=== PATIENT | male | born 1950 | race Two or more races ===

== ENCOUNTER 2017-04-19 21:12 | Emergency (ER) | payer MEDICARE, OTHER ==
[2017-04-19 21:36] VITALS: BP 152/80
== END 2017-04-19 21:58 | disposition left against medical advice (07) ==
LOC: ED 21:12
DX: I10 Essential (primary) hypertension (principal); Z53.21 Procedure and treatment not carried out due to patient leaving prior to being seen by health care provider

== ENCOUNTER → 2018-10-22 | Day surgery (SDC) | payer MEDICARE ==
[~2018-10-22] MED LIST: Acetaminophen TAB* 325 MG PO PRN; Buffered Lidocaine 1% SYRIN* 1 ML/SYRINGE INTRADERM ONE; Bupivacaine 0.5%* 50 ML MDV VIAL ONE; Famotidine IV* 10 MG/ML 2 ML (20 mg) IV ONE; Famotidine IV* 10 MG/ML 2 ML (20 mg) ONE; HYDROcodone/ACETAMIN 5-325 MG* 1 TAB PO PRN; Lactated Ringers 1000 ML Bag* 1,000 ML IV SCH; Lidocaine 2% PF * 5 ML VIAL ONE; Lidocaine 2% PF* 10 ML AMP ONE; Midazolam* 1 MG/ML 2 ML VIAL (2 MG) ONE; Naloxone* 0.4 MG/ML 1 ML VIAL IV PRN; Ondansetron INJ* 2 MG/ML VIAL IV PRN; Propofol* 10 MG/ML 20 ML BTL ONE; ceFAZolin 2 GM in NS PREMIX(*) 2 GM/100 ML BAG IVPB ONE; fentaNYL* 50 MCG/ML 2 ML VIAL (100 MCG VIAL) IV PRN; fentaNYL* 50 MCG/ML 2 ML VIAL (100 MCG VIAL) ONE; oxyCODONE TAB* 5 MG TAB PO PRN
[2018-10-22 15:04] VITALS: BP 132/61
--- NOTE | 2018-10-22 20:34 | OP ---
DATE OF SURGERY: 10/22/18 - [facility] DATE OF : 50 ATTENDING SURGEON: Ravin Damon MD. ASSISTED BY: Janet Styles PA-C. PRE-OP DIAGNOSIS: Right first metatarsal osteomyelitis. POST-OP DIAGNOSIS: Right first metatarsal osteomyelitis. OPERATIVE PROCEDURE: Right medial first ray amputation. DESCRIPTION OF PROCEDURE: The patient was taken to the operative room, where we made a tennis racket type incision surrounding the distal ulcer and then a straight line along the medial first ray up to the first cuneiform level. We dissected around the first metatarsal, also ellipticizing the ulcer. The first metatarsal was then delivered en block with the distal ulcer to pathology. Irrigation was then performed thoroughly along with the cultures being sent. We dropped the tourniquet and obtained hemostasis. Closure consisted of deep 2- 0 Vicryl sutures, 3-0 Monocryl for the subcu and then 2-0 Prolene for the skin interrupted sutures. A compression dressing was applied. [id number]/[facility] #: [id number] MTDD
== END | disposition home or self-care (01) ==
LOC: OR 11:16
PROVIDERS: ATTEND Orthopaedic Surgery
DX: M86.671 Other chronic osteomyelitis, right ankle and foot (principal); E78.00 Pure hypercholesterolemia, unspecified; M10.9 Gout, unspecified; E03.9 Hypothyroidism, unspecified; E11.9 Type 2 diabetes mellitus without complications; Z79.4 Long term (current) use of insulin; Z79.84 Long term (current) use of oral hypoglycemic drugs; G47.33 Obstructive sleep apnea (adult) (pediatric)
CPT/HCPCS: 87070; 87073; 87077; 87186; 87205; 88304; 88311; J0690; J2001; J2250; J2704; J3010; J3490

== ENCOUNTER 2018-11-21 12:48 | Inpatient (IN) | payer MEDICARE ==
--- OUTSIDE RECORDS SUMMARY | 2018-11-21 14:37 | XMS REPORT | Continuity of Care Document ---
:1950 External Reference #:[id number] Author Name Ravin Damon M.D. (transmitted by agent of provider Justin Meza) Address [address] [facility] [place] [address] Care Team Providers Name Role Phone Jah Palm M.D. 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 Onset: 09/10/2015 Abnormal involuntary movement Aman Rinaldi M.D. Onset: 12/20/2017 Abnormal gait Aman Rinaldi M.D. Onset: 12/20/2017 Abnormal results function studies of central Aman Rinaldi M.D. Onset: nervous system Malignant neoplasm of brain Aman Rinaldi M.D. Onset: 01/01/2018 Social History Type Date Description Comments Sex Unknown Tobacco Use Start: Unknown Never Smoked Cigarettes Smoking Status Reviewed: 11/21/18 Never Smoked Cigarettes ETOH Use Denies alcohol use Tobacco Use Start: Unknown Patient has never smoked Recreational Drug Use Never Used Drugs Exercise Type/Frequency Exercises regularly Allergies, Adverse Reactions, Alerts Description No Known Drug Allergies Medications Active Medications SIG Qnty Indications Ordering Date Provider Primidone take 1 tablet by 180tabs R25.1 Jp Roberts 12/20/2017 50mg Tablets mouth twice a Janay Rosas day.. Aspir-81 1 by mouth every Unknown 81mg Tablets DR day Metformin HCL 1 by mouth twice Unknown 1000mg a day Tablets Levothyroxine Sodium 1 by mouth every Unknown day 125mcg Tablets Fluoxetine HCL 1 by mouth every Unknown 40mg day Capsules Glipizide 1 by mouth daily Unknown 10mg Tablets Rosuvastatin Calcium take one tablet 90tabs Unknown 40mg daily Tablets Humulin 70/30 16 units in in Unknown the morning and (70-30)100Unit/ML 16 units in at Suspension night Allopurinol Take Two Tablets Unknown 100mg Tablets By Mouth Every Day Lisinopril 1 by mouth every Unknown 2.5mg Tablets day Cabergoline take 1 tab by Unknown 0.5mg Tablets mouth twice weekly Cefdinir Take One Capsule Unknown 300mg Capsules By Mouth Twice A Day Metronidazole Take One Tablet Unknown 500mg By Mouth Three Tablets Times A Day History Medications Oxycodone HCL 1 tabs by mouth 12tabs Ravin Damon, 10/22/2018 - 5mg every 6 hours as M.D. 10/30/2018 Tablets needed Immunizations Description No Information Available Vital Signs Date Vital Result Comment 11/21/2018 10:58am Height 65 inches 5'5" Weight 210.00 lb Heart Rate 53 /min BP Systolic Sitting 128 mmHg BP Diastolic Sitting 74 mmHg Respiratory Rate 16 /min Body Temperature 97.3 F Pain Level 0 O2 % BldC Oximetry 92 % BMI (Body Mass Index) 34.9 kg/m2 11/14/2018 10:40am Height 65 inches 5'5" Weight 225.00 lb Heart Rate 108 /min BP Systolic Sitting 106 mmHg BP Diastolic Sitting 50 mmHg Pain Level 0 O2 % BldC Oximetry 98 % BMI (Body Mass Index) 37.4 kg/m2 Results Test Date Facility Test Result H/L Range Note Xray 11/15/2018 [facility] VL Ank/Brachial . [address] [place] [address] [phone] Laboratory test 11/07/2018 [facility] Erythrocyte Sed 54 mm/Hr High 0-[address] [place] [address] [phone] C Reactive Protein 20.67 mg/L High <8.01 Laboratory test 10/22/2018 [facility] Point of Care 143 mg/dL High 70-[address] [place] [address] [phone] Wound 10/22/2018 [facility] Wound/Misc SEE RESULT 2, 3 Culture/Sensi [address] [place] [address] Stain [phone] Laboratory test 10/22/2018 [facility] Anaerobic SEE RESULT [address] [place] [address] [phone] Surgical Pathology SEE RESULT BELOW 5 Laboratory 10/22/2018 [facility] Point of 161 mg/dL High 70- 100 6 test finding [address] [place] [address] Glucose [phone] Inr/Protime 10/16/2018 [facility] Inr 1.03 Normal 0.82-1.09 7 , [address] [place] [address] [phone] Laboratory 10/16/2018 [facility] Partial 33.3 Normal 26.0- 38.0 9 test finding [address] [address] Time PTT [phone] Basic 10/16/2018 [facility] Sodium 139 mmol/L Normal 135-[address] [place] [address] [phone] Potassium 4.5 mmol/L Normal 3.5-5.0 Chloride 105 mmol/L Normal 101-111 Co2 Carbon Dioxide 24 mmol/L Normal 22-32 Anion Gap 10 mmol/L Normal 2-11 Glucose 113 mg/dL High 70-100 Blood Urea Nitrogen 22 mg/dL Normal 6-24 Creatinine 0.70 mg/dL Normal 0.67-1.17 BUN/Creatinine Ratio 31.4 High 8-20 Calcium 9.9 mg/dL Normal 8.6-10.3 Egfr Non- 112.1 >60 Egfr 135.7 >60 10 Laboratory test 10/16/2018 [facility] C Reactive 4.80 Normal < 8.01 [address] Protein mg/[place] [address] [phone] CBC Auto Diff 10/16/2018 [facility] White Blood 7.1 Normal 3.5 -10.[address] Count 10^3/uL [place] [id number] [phone] Red Blood Count 4.35 10^6/uL Normal 4.18-5.48 Hemoglobin 12.7 g/dL Low 14.0-18.0 Hematocrit 38 % Low 42-52 Mean Corpuscular Volume 88 fL Normal 80-94 Mean Corpuscular Hemoglobin 29 pg Normal 27-31 Mean Corpuscular HGB Conc 33 g/dL Normal 31-36 Red Cell Distribution Width 16 % High 10-15 Platelet Count 308 10^3/uL Normal 150-450 Mean Platelet Volume 7.4 fL Normal 7.4-10.4 Abs Neutrophils 4.9 10^3/uL Normal 1.5-7.7 Abs Lymphocytes 1.5 10^3/uL Normal 1.0-4.8 Abs Monocytes 0.6 10^3/uL Normal 0-0.8 Abs Eosinophils 0.0 10^3/uL Normal 0-0.6 Abs Basophils 0.1 10^3/uL Normal 0-0.2 Abs Nucleated RBC 0.0 10^3/uL Granulocyte % 69.8 % Lymphocyte % 21.0 % Monocyte % 8.2 % Eosinophil % 0.1 % Basophil % 0.9 % Nucleated Red Blood Cells % 0.1 Laboratory test 10/16/2018 [facility] Erythrocyte Sed 15 mm/Hr Normal 0-19 [address] [place] [address] [phone] 1 Paper Twister: [id number] RIGHT FOOT 3 SEE RESULT BELOW Name: TARUN MORRISON : [address]: Ravin Damon MD Acct: [id number] Unit: [id number] AGE: 68 Location: OR Re10/22/18 SEX: M Status: REG [facility] SPEC: [id number] GINETTE: 10/22/18-[address]: Ravin Damon MD REQ: [id number] RECD: 10/22/18 STATUS: RES OTHR DR: Jah Palm MD _ SOURCE: WOUND SPDESC: ORDERED: Anaerobic Cult, Culture Stain COMMENTS: RIGHT FOOT Procedure Result Reported Site Anaerobic Culture PENDING Wound/Misc Gram Stain Final 10/22/18- 151 ML 1+ Epithelial Cells 1+ Neutrophils 1+ Gram Positive Cocci Wound/Misc Culture PENDING * ML - Main Lab . END OF REPORT DEPARTMENT OF PATHOLOGY, [address] [place] [address] Moncho Talbot M.D. Director [facility] # [id number] 4 SEE RESULT BELOW Name: TARUN MORRISON : [address]: Ravin Damon MD Acct: [id number] Unit: [id number] AGE: 68 Location: OR Re10/22/18 SEX: M Status: REG SDC SPEC: [id number] GINETTE: 10/22/18 [facility] DR: Ravin Damon MD REQ: [id number] RECD: 10/22/18 STATUS: VALERIA FONSECA DR: Jah Palm MD _ SOURCE: WOUND SPDESC: ORDERED: Anaerobic Cult, Culture Stain COMMENTS: RIGHT FOOT Procedure Result Reported Site Anaerobic Culture Final 10/26/18- 957 ML No Growth Day 4 Wound/Misc Gram Stain Final 10/22/18- 1511 ML 1+ Epithelial Cells 1+ Neutrophils 1+ Gram Positive Cocci Wound/Misc Culture Final 10/26/18- 957 ML Organism 1 ENTEROCOCCUS FAECIUM Quantity 1+ Organism 2 NORMAL GLYNN Quantity 1+ ENTEROCOCCUS FAECIUM:SIGNIFICANCE QUESTIONED; 2 COLONIES ISOLATED 1. ENTEROCOCCUS FAECIUM M.I.C. RX --------- ------ Ampicillin >=32 R Penicillin >=64 R Ciprofloxacin >=8 R Erythromycin >=8 R Gentamicin High Level R Levofloxacin >=8 R Linezolid 2 S * Quinupristin/Dalfopristin 0.5 S * Streptomycin High Level R Tetracycline >=16 R Tigecycline <=0.12 S Vancomycin <=0.5 S * Ampicillin/Sulbactam-Deduced R CONTINUED ON NEXT PAGE DEPARTMENT OF PATHOLOGY, [facility] [email or web address] [place] [address] Moncho Talbot M.D. Director [facility] # [id number] Specimen: [id number] Collected: 10/22/18 Received: 10/22/18 (Continued) Procedure Result Reported Site Wound/Misc Culture Final (continued) * These antibiotics are not available in the [facility] Formulary Contact the Microbiology Department for any additional antibiotic reporting. * - Main Lab . END OF REPORT DEPARTMENT OF PATHOLOGY, [facility] [email or web address] [place], [place] [address] Moncho Talbot M.D. Director [facility] # [id number] 5 SEE RESULT BELOW Name: TARUN MORRISON : [address]: Ravin Damon MD Acct: [id number] Unit: [id number] AGE: 68 Location: OR Re10/22/18 SEX: M Status: REG SDC SPEC: [id number] GINETTE: 10/22/[address]: Ravin Damon MD REQ: [id number] RECD: 10/22/18 STATUS: SOUT _ ORDERED: [place], LEVEL 3 FINAL DIAGNOSIS Right foot, first ray, excision: -- Ulcer and ulcer bed. -- Severe chronic osteomyelitis. PRE-OPERATIVE DIAGNOSIS Right foot osteomyelitis GROSS DESCRIPTION The specimen is received in formalin labeled, Right Foot First Ray, and consists of a 6.1 by up to 3.6 x 2.5 cm disarticulated bone fragment with moderate adherent mccabe- white to yellow soft tissue. The specimen is partially surfaced by a 4.9 x 2.0 cm mckay- white volar skin ellipse with a central 2.3 by up to 1.9 cm glistening dusky mccabe-mckay lesion. Received separately in the same container are two mccabe-white irregular to elliptical volar skin and soft tissue fragments aggregating 7.0 x 4.0 x 1.7 cm. Deputy [employer] Marshal sections are submitted in cassettes A and B as follows: A-skin and soft tissue and B-bone following decalcification. Signed by and Reported on: Moncho Talbot MD 1645 END OF REPORT DEPARTMENT OF PATHOLOGY, [address] [place] [address] Moncho Talbot M.D. Director CLIA # [id number] 6 Paper Twister: [id number] 7 10/22 8 Standard intensity warfarin therapeutic range: 2.0-3.0 High intensity warfarin therapeutic range: 2.5-3.5 9 10/22 10 Because ethnic data is not always readily available, this report includes an eGFR for both -Americans and non- Americans. The National Kidney Disease Education Program (NKDEP) does not endorse the use of the MDRD equation for patients that are not between the ages of 18 and 70, are , have extremes of body size, muscle mass, or nutritional status, or are non- or non-. According to the National Kidney Foundation, irrespective of diagnosis, the stage of the disease is based on the level of kidney function: Stage Description GFR(mL/min/1.73 m(2)) 1 Kidney damage with normal or decreased GFR 90 2 Kidney damage with mild decrease in GFR 60-89 3 Moderate decrease in GFR 30-59 4 Severe decrease in GFR 15-29 5 Kidney failure <15 (or dialysis) 11 10/22 12 10/22 Procedures Date Code Description Status 10/22/2018 53577 Amputation Toe MP JT Completed 10/22/2018 04379 Amputation Toe MP JT Completed Medical Devices Description No Information Available Encounters Type Date Location Provider Dx Diagnosis Office Visit 09/25/2018 [facility] Yusra Jin.671 [facility] and foot Assessments Date Code Description Provider 11/21/2018 M86.671 Other chronic osteomyelitis, right ankle and Ravin Damon M.D. foot 11/21/2018 Z47.89 Encounter for other orthopedic aftercare Ravin Damon M.D. 11/21/2018 T81.30xD Disruption of wound, unspecified, subsequent Ravin Damon M.D. encounter 11/14/2018 M86.671 Other chronic osteomyelitis, right ankle and Ravin Damon M.D. foot 11/14/2018 Z47.89 Encounter for other orthopedic aftercare Ravin Damon M.D. 11/07/2018 M86.671 Other chronic osteomyelitis, right ankle and Ravin Damon M.D. foot 10/31/2018 Z47.89 Encounter for other orthopedic aftercare Ravin Damon M.D. 10/31/2018 M86.671 Other chronic osteomyelitis, right ankle and Ravin Damon M.D. foot 10/22/2018 M86.671 Other chronic osteomyelitis, right ankle and [place] foot 10/22/2018 M86.671 Other chronic osteomyelitis, right ankle and Ravin Damon M.D. foot 10/10/2018 M86.671 Other chronic osteomyelitis, right ankle and Ravin Damon M.D. foot 09/25/2018 M86.671 Other chronic osteomyelitis, right ankle and Ravin Damon M.D. foot Plan of Treatment Future Appointment(s):01/23/2019 4:00 pm - Aman Rinaldi M.D[facility] at [facility]11/21/2018 - Ravin Damon M.D.M86.671 Other chronic osteomyelitis, right ankle and footFollow up:Follow up: 10-14 days wbaxbyW10.89 Encounter for other orthopedic nyrrtrcipO30.30xD Disruption of wound, unspecified, subsequent encounter Functional Status Description No Information Available Mental Status Description No Information Available Referrals Refer to Dr Reason for Referral Status Appt Date Clayton Genao MD Evaluate need for revascularization Closed [address] [place] [address] [phone]
--- OUTSIDE RECORDS SUMMARY | 2018-11-21 14:37 | XMS REPORT | Continuity of Care Document ---
:1950 Author Organization [facility] Allergies and Intolerances No Allergy Data in the System Medications No Known Medications Medications At Time Of Discharge No data in the system Problems No Data in the system Procedures No data in the system Results Laboratory Results Order: C REACTIVE PROTEIN Specimen Source : Body Site: Legend: (G,H) = High, (GG,HH,CH,#H) = Above High Threshold, (#,L) = Low, (##,CL,#L,LL) = Below Low Threshold, (C,CC,CA,#A,A) = Abnormal LOINC Test Result Flag Range Units Date 1987-06 1CRP SerPl-mCnc 5.9 H <=5.0 mg/L 09/26/2018 08:30 Performing Lab Footnotes:[facility] - [id number] - [address] [place] [address] ANDREAS Guerra JAUN Order: CBC DIFF Specimen Source: Body Site: Legend: (G,H) = High, (GG, HH,CH,#H) = Above High Threshold, (#,L) = Low, (##,CL,#L,LL) = Below Low Threshold, (C,CC,CA,#A,A) = Abnormal LOINC Test Result Flag Range Units Date 6690-2 1WBC # Bld Auto 6.2 4.8-10.8 K/uL 09/26/2018 08:30 23441-4 1RBC # Bld 3.99 L 4.60-6.20 M/uL 09/26/2018 08:30 718-7 1Hgb Bld-mCnc 11.8 L 13.5-18.0 gm/dL 09/26/2018 08:30 4544-3 1Hct VFr Bld Auto 36.3 L 41.0-53.0 % 09/26/2018 08:30 787-2 1MCV RBC Auto 90.8 80.0-100.0 fL 09/26/2018 08:30 99998-8 1MCHC RBC-mCnc 32.5 30.0-36.5 % 09/26/2018 08:30 46916-5 1MCH RBC Qn 29.5 27.0-34.0 pg 09/26/2018 08:30 16215-6 1RDW RBC 14.7 11.0-15.0 % 09/26/2018 08:30 777-3 1Platelet # Bld Auto 280 130-450 K/uL 09/26/2018 08:30 80607-4 1PMV Bld Auto 6.8 6.0-12.0 fL 09/26/2018 08:30 751-8 1Neutrophils # Bld Auto 67 37-80 % 09/26/2018 08:30 83999-4 1Lymphocytes NFr Bld 22 10-50 % 09/26/2018 08:30 5905-5 1Monocytes NFr Bld Auto 10 0-12 % 09/26/2018 08:30 19488-8 1Eosinophil # Bld 1 <=8 % 09/26/2018 08:30 704-7 1Basophils # Bld Auto 0 <=3 % 09/26/2018 08:30 84131-4 1Neutrophils # Bld 4.2 1.8-8.6 K/uL 09/26/2018 08:30 731-0 1Lymphocytes # Bld Auto 1.3 0.5-5.0 K/uL 09/26/2018 08:30 742-7 1Monocytes # Bld Auto 0.6 0.0-1.3 K/uL 09/26/2018 08:30 60312-7 1Eosinophil # Bld 0.1 0.0-0.9 K/uL 09/26/2018 08:30 704-7 1Basophils # Bld Auto 0.0 0.0-0.3 K/ul 09/26/2018 08:30 Performing Lab Footnotes:[facility] - [id number] - [address] [place] [address] ANDREAS OLVERAD1 Order: COMPREHENSIVE PANEL Specimen Source: Body Site: Legend: (G,H) = High, (GG,HH,CH,#H) = Above High Threshold, (#,L) = Low, (##,CL,#L,LL) = Below Low Threshold, (C,CC,CA,#A,A) = Abnormal LOINC Test Result Flag Range Units Date 2951-2 1Sodium SerPl-sCnc 139 136-145 mmol/L 09/26/2018 08:30 2823-3 1Potassium SerPl-sCnc 4.5 3.5-5.2 mmol/L 09/26/2018 08:30 2075-0 1Chloride SerPl-sCnc 107 100-108 mmol/L 09/26/2018 08:30 2028-9 1CO2 SerPl-sCnc 25 21-32 mmol/L 09/26/2018 08:30 2345-7 1Glucose SerPl-mCnc 102 H 70-100 mg/dL 09/26/2018 08:30 3094-0 1BUN SerPl-mCnc 15 7-21 mg/dL 09/26/2018 08:30 2160-0 1Creat SerPl-mCnc 0.7 0.6-1.3 mg/dL 09/26/2018 08:30 Interpretive Rosemary: 1Normal Kidney Function or Mild Disease - GFR >OR= 60 Chronic Kidney Disease - GFR 15-59 Renal Failure - GFR < 15 GFR not calculated on patients under 18 years of age. Calculated (estimated) GFR is based on the MDRD Study equation, which assumes a steady state for creatinine. Estimated GFR may not be appropriate for medication dosing. 76435-3 1Ca-I SerPl-mCnc 8.6 8.5-10.8 mg/dL 09/26/2018 08:30 62276-6 1GFR/BSA.pred SerPl-ArVRat >60 09/26/2018 08:30 87979-7 1Bilirub Bld-mCnc 0.5 0.0-1.2 mg/dL 09/26/2018 08:30 2885-2 1Prot SerPl-mCnc 5.8 L 6.4-8.2 gm/dL 09/26/2018 08:30 1751-7 1Albumin SerPl-mCnc 3.9 3.2-4.6 gm/dL 09/26/2018 08:30 6768-6 1ALP SerPl-cCnc 47 40-150 U/L 09/26/2018 08:30 1742-6 1ALT SerPl-cCnc 28 0-55 U/L 09/26/2018 08:30 1920-8 1AST SerPl-cCnc 28 5-37 U/L 09/26/2018 08:30 Performing Lab Footnotes:[facility] - [id number] - [address] [place] [address] ANDREAS Guerra RICCIOMD1 Social History Code Code System Social History Description Dates Observed Observation 205659110 SNOMED CT Current Smoking Unknown if ever Status smoked UNK AdministrativeGender Sex Assigned At Unknown Vital Signs No data in the system Goals Section No data in the system Health Concerns No data in the systemEncounter Diagnosis Date Code Code System Diagnosis Status M86.171 ICD10 OTH ACUTE OSTEOMYEL RT ANKLE FOOT Active Advance Directives No Data in the System Encounters Encounter Diagnosis Location Date OTH ACUTE OSTEOMYEL RT ANKLE FOOT [facility] 09/26/2018 Family History Family history not obtained Functional Status No data in the system Immunizations No data in the system Medical Equipment No data in the system Mental Status No data in the system Assessment and Plan Assessments No data in the systemPlan Of Treatment No data in the systemPending Tests No data in the system Hospital Discharge Instructions No data in the system Reason for Visit No data in the system
--- OUTSIDE RECORDS SUMMARY | 2018-11-21 14:37 | XMS REPORT | Continuity of Care Document ---
:1950 Author Organization [facility] Allergies and Intolerances No Allergy Data [...] Flag Range Units Date 1987-06 1CRP SerPl-mCnc 4.0 <=5.0 mg/L 10/08/2018 10:15 Performing Lab Footnotes:[facility] - [id number] - [address] [place] [address] ANDREAS Guerra JAUN Order: CBC Specimen Source: Body Site: Legend: (G,H) = High, (GG,HH,CH, #H) = Above High Threshold, (#,L) = Low, (##,CL,#L,LL) = Below Low Threshold, (C ,CC,CA,#A,A) = Abnormal LOINC Test Result Flag Range Units Date 6690- 1WBC # Bld Auto 6.0 4.8-10.8 K/uL 10/08/2018 10:15 56151-3 1RBC # Bld 4.21 L 4.60-6.20 M/uL 10/08/2018 10:15 718-7 1Hgb Bld-mCnc 11.9 L 13.5-18.0 gm/dL 10/08/2018 10:15 4544-3 1Hct VFr Bld Auto 38.1 L 41.0-53.0 % 10/08/2018 10:15 787-2 1MCV RBC Auto 90.6 80.0-100.0 fL 10/08/2018 10:15 71963-4 1MCHC RBC-mCnc 31.3 30.0-36.5 % 10/08/2018 10:15 57176-8 1MCH RBC Qn 28.4 27.0-34.0 pg 10/08/2018 10:15 40763-6 1RDW RBC 14.5 11.0-15.0 % 10/08/2018 10:15 777-3 1Platelet # Bld Auto 281 130-450 K/uL 10/08/2018 10:15 33142-2 1PMV Bld Auto 6.9 6.0-12.0 fL 10/08/2018 10:15 Performing Lab Footnotes:[facility] - [id number] - [address] [place] [address] ANDREAS Guerra JAUN Order: COMPREHENSIVE PANEL Specimen Source: Body Site: Legend: (G,H) = High, (GG,HH,CH,#H) = Above High Threshold, (#,L) = Low, (##,CL,#L,LL) = Below Low Threshold, (C,CC,CA,#A,A) = Abnormal LOINC Test Result Flag Range Units Date 2951-2 1Sodium SerPl-sCnc 140 136-145 mmol/L 10/08/2018 10:15 2823-3 1Potassium SerPl-sCnc 4.8 3.5-5.2 mmol/L 10/08/2018 10:15 5-0 1Chloride SerPl-sCnc 105 100-108 mmol/L 10/08/2018 10:15 2028-9 1CO2 SerPl-sCnc 26 21-32 mmol/L 10/08/2018 10:15 2345-7 1Glucose SerPl-mCnc 182 H 70-100 mg/dL 10/08/2018 10:15 3094-0 1BUN SerPl-mCnc 14 7-21 mg/dL 10/08/2018 10:15 2160-0 1Creat SerPl-mCnc 0.7 0.6-1.3 mg/dL 10/08/2018 10:15 Interpretive Rosemary: 1Normal Kidney Function or Mild Disease - GFR >OR= 60 Chronic Kidney Disease - GFR 15-59 Renal Failure - GFR < 15 GFR not calculated on patients under 18 years of age. Calculated (estimated) GFR is based on the MDRD Study equation, which assumes a steady state for creatinine. Estimated GFR may not be appropriate for medication dosing. 03216-3 1Ca-I SerPl-mCnc 9.1 8.5-10.8 mg/dL 10/08/2018 10:15 26770-8 1GFR/BSA.pred SerPl-ArVRat >60 10/08/2018 10:15 35703-0 1Bilirub Bld-mCnc 0.4 0.0-1.2 mg/dL 10/08/2018 10:15 2885-2 1Prot SerPl-mCnc 6.3 L 6.4-8.2 gm/dL 10/08/2018 10:15 1751-7 1Albumin SerPl-mCnc 4.2 3.2-4.6 gm/dL 10/08/2018 10:15 6768-6 1ALP SerPl-cCnc 51 40-150 U/L 10/08/2018 10:15 1742-6 1ALT SerPl-cCnc 32 0-55 U/L 10/08/2018 10:15 1920-8 1AST SerPl-cCnc 33 5-37 U/L 10/08/2018 10:15 Performing Lab Footnotes:[facility] - [id number] - [address] [place] [address] ANDERAS ZAMORANO Social History Code Code System Social History Description Dates Observed Observation 210448596 SNOMED CT Current Smoking Unknown if ever Status smoked UNK AdministrativeGender Sex Assigned At Unknown Vital Signs No data in the system Goals Section No data in the system Health Concerns No data in the systemEncounter Diagnosis Date Code Code System Diagnosis Status Z47.81 ICD10 ENC ORTHOPED AFTERCARE FLW SURG AMP Active Advance Directives No Data in the System Encounters Encounter Diagnosis Location Date ENC ORTHOPED AFTERCARE FLW SURG AMP [facility] 10/08/2018 Family History Family history not obtained Functional [...]
--- OUTSIDE RECORDS SUMMARY | 2018-11-21 14:37 | XMS REPORT | Continuity of Care Document ---
:1950 External Reference #:[id number] Author Name Ravin Damon M.D. (transmitted by agent of provider Justin Meza) Address [address] [facility] [place] [address] Care Team Providers Name Role Phone Jah Palm M.D. - Family Care Team Information Epic Specialist [phone] Medicine Problems Active Problems Provider Date Essential [...] Unknown Never Smoked Cigarettes Smoking Status Reviewed: 11/07/18 Never Smoked Cigarettes ETOH Use Denies alcohol [...] Available Vital Signs Date Vital Result Comment 11/07/2018 10:53am Height 65 inches 5'5" Weight 225.00 lb Heart Rate 101 /min BP Systolic Sitting 100 mmHg BP Diastolic Sitting 58 mmHg Pain Level 0 O2 % BldC Oximetry 98 % BMI (Body Mass Index) 37.4 kg/m2 10/31/2018 2:08pm Height 65 inches 5'5" Heart Rate 91 /min BP Systolic Sitting 102 mmHg BP Diastolic Sitting 60 mmHg Respiratory Rate 12 /min no resp difficulties Body Temperature 99.5 F Pain Level 0 O2 % BldC Oximetry 98 % Results Test Date Facility Test Result H/L Range Note Laboratory test 10/22/2018 [facility] Point of Care 143 mg/dL High 70-[address] Glucose [place], [place] [id number] [phone] Wound 10/22/2018 [facility] Wound/Misc SEE RESULT 2, 3 Culture/Sensi [address] [place] [address] Stain [phone] Laboratory test 10/22/2018 [facility] Anaerobic SEE RESULT [address] Culture BELOW [place], [place] [address] [phone] Surgical Pathology SEE RESULT BELOW 5 Laboratory 10/22/2018 [facility] Point of 161 mg/dL High 70- 100 6 test finding [address] [place] [address] Glucose [phone] Inr/Protime 10/16/2018 [facility] Inr 1.03 Normal 0.82-1.09 7 , [address] [place] [address] [phone] Laboratory 10/16/2018 [facility] Partial 33.3 Normal 26.0- 38.0 9 test finding [address] [place] [place] [address] Time PTT [phone] Basic 10/16/2018 [facility] Sodium 139 mmol/L Normal 135-[address] [place] [address] [phone] Potassium 4.5 mmol/L Normal 3.5-5.0 Chloride 105 mmol/L Normal 101-111 Co2 Carbon Dioxide 24 mmol/L Normal 22-32 Anion Gap 10 mmol/L Normal 2-11 Glucose 113 mg/dL High 70-100 Blood Urea Nitrogen 22 mg/dL Normal 6-24 Creatinine 0.70 mg/dL Normal 0.67-1.17 BUN/Creatinine Ratio 31.4 High 8-20 Calcium 9.9 mg/dL Normal 8.6-10.3 Egfr Non- 112.1 >60 Egfr 135.7 >60 10 Laboratory test 10/16/2018 [facility] C Reactive 4.80 Normal < 8.[address] Protein mg/L [place], [place] [address] [phone] CBC Auto Diff 10/16/2018 [facility] White Blood 7.1 Normal 3.5 -10.[address] Count 10^3/[place] [address] [phone] Red Blood Count 4.35 10^6/uL Normal 4.18-5.48 [...] Blood Cells % 0.1 Laboratory test 10/16/2018 [facility] Erythrocyte Sed 15 mm/Hr Normal 0-19 [address] [place] [address] [phone] 1 Take Off Man: [id number] 2 RIGHT FOOT 3 SEE RESULT BELOW Name: PRINCETARUN David : [address]: Ravin Damon MD Acct: [id number] Unit: [id number] AGE: 68 Location: OR Re10/22/18 SEX: M Status: REG SDC SPEC: [id number] GINETTE: 10/22/[address]: Ravin Damon MD REQ: [id number] RECD: 10/22/183973 STATUS: RES OT DR: Jah Palm MD _ SOURCE: WOUND SPDESC: ORDERED: Anaerobic Cult, Culture Stain COMMENTS: RIGHT FOOT Procedure Result Reported Site Anaerobic Culture PENDING Wound/Misc Gram Stain Final 10/22/18- 1511 ML 1+ Epithelial Cells 1+ Neutrophils 1+ Gram Positive Cocci Wound/Misc Culture PENDING * ML - Main Lab . END OF REPORT DEPARTMENT OF PATHOLOGY, [address] [place] [address] Moncho Talbot M.D. Director [facility] # [id number] 4 SEE RESULT BELOW Name: TARUN MORRISON : [address]: Ravin Damon MD Acct: [id number] Unit: [id number] AGE: 68 Location: OR Re10/22/18 SEX: M Status: REG SDC SPEC: [id number] GINETTE: 10/22/18-[address]: Ravin Damon MD REQ: [id number] RECD: 10/22/18 STATUS: COMP [facility] DR: Jah Palm MD _ SOURCE: WOUND SPDESC: ORDERED: Anaerobic Cult, Culture Stain COMMENTS: RIGHT FOOT Procedure Result Reported Site Anaerobic Culture Final 10/26/18957 ML No Growth Day 4 Wound/Misc Gram Stain Final 10/22/18- 151 ML [...] CONTINUED ON NEXT PAGE DEPARTMENT OF PATHOLOGY, [address] [place] [address] Moncho Talbot M.D. Director [facility] # [id number] Specimen: [id number] Collected: 10/22/18 Received: 10/22/18-1424 (Continued) Procedure Result Reported Site Wound/Misc Culture Final (continued) * These antibiotics are not available in the [facility] Formulary Contact the Microbiology Department for any additional antibiotic reporting. * ML - Main Lab . END OF REPORT DEPARTMENT OF PATHOLOGY, [address] [place] [address] Moncho Talbot M.D. Director [facility] # [id number] 5 SEE RESULT BELOW Name: TARUN MORRISON : [address]: Ravin Daomn MD Acct: [id number] Unit: [id number] AGE: 68 Location: OR Re10/22/18 SEX: M Status: REG SDC SPEC: [id number] GINETTE: 10/22/18-[address] [facility] [address]: Ravin Damon MD REQ: [id number] RECD: 10/22/18822 STATUS: SOUT _ ORDERED: Decal, LEVEL 3 FINAL DIAGNOSIS Right foot, first [...] aggregating 7.0 x 4.0 x 1.7 cm. Diamond Assorter sections are submitted in cassettes A and B as follows: A-skin and soft tissue and B-bone following decalcification. Signed by and Reported on: Moncho Talbot MD 1285 END OF REPORT DEPARTMENT OF PATHOLOGY, [address] [place] [address] Moncho Talbot M.D. 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 foot Plan of Treatment Future Appointment(s):11/14/2018 10:30 am - Ravin Damon M.D. at [facility] AT Dxtrdeos72/11/2019 4:00 pm - Aman Rinaldi M.D. at [place] [facility] Functional Status Description No Information Available Mental Status Description No Information Available Referrals Description No Information Available
--- OUTSIDE RECORDS SUMMARY | 2018-11-21 14:37 | XMS REPORT | Continuity of Care Document ---
:1950 Author Organization [facility] Care Team Providers Name Role Phone UNKNOWN, UNKNOWN Primary Care Physician Unavailable Allergies and Intolerances No Allergy Data in [...] Flag Range Units Date 1987-06 1CRP SerPl-mCnc 4.7 <=5.0 mg/L 09/19/2018 13:00 Performing Lab Footnotes: Laboratory - [id number] - [address] [place] [address] ANDREAS ZAMORANO Order: CBC DIFF Specimen Source: Body Site: Legend: (G,H) = High, (GG, HH,CH,#H) = Above High Threshold, (#,L) = Low, (##,CL,#L,LL) = Below Low Threshold, (C,CC,CA,#A,A) = Abnormal LOINC Test Result Flag Range Units Date 6690-2 1WBC # Bld Auto 9.1 4.8-10.8 K/uL 09/19/2018 13:00 68500-0 1RBC # Bld 4.16 L 4.60-6.20 M/uL 09/19/2018 13:00 718-7 1Hgb Bld-mCnc 12.1 L 13.5-18.0 gm/dL 09/19/2018 13:00 4544-3 1Hct VFr Bld Auto 37.6 L 41.0-53.0 % 09/19/2018 13:00 787-2 1MCV RBC Auto 90.4 80.0-100.0 fL 09/19/2018 13:00 77642-2 1MCHC RBC-mCnc 32.2 30.0-36.5 % 09/19/2018 13:00 80488-8 1MCH RBC Qn 29.1 27.0-34.0 pg 09/19/2018 13:00 82398-1 1RDW RBC 14.5 11.0-15.0 % 09/19/2018 13:00 777-3 1Platelet # Bld Auto 394 130-450 K/uL 09/19/2018 13:00 08701-0 1PMV Bld Auto 7.1 6.0-12.0 fL 09/19/2018 13:00 751-8 1Neutrophils # Bld Auto 69 37-80 % 09/19/2018 13:00 71654-0 1Lymphocytes NFr Bld 21 10-50 % 09/19/2018 13:00 5905-5 1Monocytes NFr Bld Auto 8 0-12 % 09/19/2018 13:00 51488-9 1Eosinophil # Bld 1 <=8 % 09/19/2018 13:00 704-7 1Basophils # Bld Auto 1 <=3 % 09/19/2018 13:00 07040-1 1Neutrophils # Bld 6.3 1.8-8.6 K/uL 09/19/2018 13:00 731-0 1Lymphocytes # Bld Auto 1.9 0.5-5.0 K/uL 09/19/2018 13:00 742-7 1Monocytes # Bld Auto 0.8 0.0-1.3 K/uL 09/19/2018 13:00 96095-6 1Eosinophil # Bld 0.1 0.0-0.9 K/uL 09/19/2018 13:00 704-7 1Basophils # Bld Auto 0.1 0.0-0.3 K/ul 09/19/2018 13:00 Performing Lab Footnotes: Laboratory - [id number] - [address] [place] [address] ANDREAS OLVERAD1 Order: COMPREHENSIVE PANEL Specimen Source: Body Site: Legend: (G,H) = High, (GG,HH,CH,#H) = Above High Threshold, (#,L) = Low, (##,CL,#L,LL) = Below Low Threshold, (C,CC,CA,#A,A) = Abnormal LOINC Test Result Flag Range Units Date 2951-2 1Sodium SerPl-sCnc 141 136-145 mmol/L 09/19/2018 13:00 2823-3 1Potassium SerPl-sCnc 4.5 3.5-5.2 mmol/L 09/19/2018 13:00 2075-0 1Chloride SerPl-sCnc 109 H 100-108 mmol/L 09/19/2018 13:00 2028-9 1CO2 SerPl-sCnc 24 21-32 mmol/L 09/19/2018 13:00 2345-7 1Glucose SerPl-mCnc 46 L 70-100 mg/dL 09/19/2018 13:00 3094-0 1BUN SerPl-mCnc 14 7-21 mg/dL 09/19/2018 13:00 2160-0 1Creat SerPl-mCnc 0.8 0.6-1.3 mg/dL 09/19/2018 13:00 Interpretive Rosemary: 1Normal Kidney Function or Mild Disease - GFR >OR= 60 Chronic Kidney Disease - GFR 15-59 Renal Failure - GFR < 15 GFR not calculated on patients under 18 years of age. Calculated (estimated) GFR is based on the MDRD Study equation, which assumes a steady state for creatinine. Estimated GFR may not be appropriate for medication dosing. 41513-2 1Ca-I SerPl-mCnc 9.5 8.5-10.8 mg/dL 09/19/2018 13:00 91301-3 1GFR/BSA.pred SerPl-ArVRat >60 09/19/2018 13:00 57181-7 1Bilirub Bld-mCnc 0.4 0.0-1.2 mg/dL 09/19/2018 13:00 2885-2 1Prot SerPl-mCnc 6.4 6.4-8.2 gm/dL 09/19/2018 13:00 1751-7 1Albumin SerPl-mCnc 4.1 3.2-4.6 gm/dL 09/19/2018 13:00 6768-6 1ALP SerPl-cCnc 53 40-150 U/L 09/19/2018 13:00 1742-6 1ALT SerPl-cCnc 28 0-55 U/L 09/19/2018 13:00 1920-8 1AST SerPl-cCnc 30 5-37 U/L 09/19/2018 13:00 Performing Lab Footnotes: Laboratory - [id number] - [address] [place] [address] ANDREAS Guerra SANNAOMPanchito Social History Code Code System Social History Description Dates Observed Observation 974883419 SNOMED CT Current Smoking Unknown if ever [...] Date OTH ACUTE OSTEOMYEL RT ANKLE FOOT [facility] 09/19/2018 Family History Family history not obtained Functional [...]
--- OUTSIDE RECORDS SUMMARY | 2018-11-21 14:37 | XMS REPORT | Continuity of Care Document ---
:1950 Author Organization [facility] Allergies and Intolerances No Allergy Data in the System Medications No Known Medications Medications At Time Of Discharge No data in the system Problems No Data in the system Procedures No data in the system Results Laboratory Results Order: CBC DIFF Specimen Source: Body Site : Legend: (G,H) = High, (GG,HH,CH,#H) = Above High Threshold, (#,L) = Low, (##, CL,#L,LL) = Below Low Threshold, (C,CC,CA,#A,A) = Abnormal LOINC Test Result Flag Range Units Date 6690-2 1WBC # Bld Auto 8.4 4.8-10.8 K/uL 10/15/2018 14:30 07077-4 1RBC # Bld 4.30 L 4.60-6.20 M/uL 10/15/2018 14:30 718-7 1Hgb Bld-mCnc 12.7 L 13.5-18.0 gm/dL 10/15/2018 14:30 4544-3 1Hct VFr Bld Auto 39.0 L 41.0-53.0 % 10/15/2018 14:30 787-2 1MCV RBC Auto 90.7 80.0-100.0 fL 10/15/2018 14:30 00228-3 1MCHC RBC-mCnc 32.4 30.0-36.5 % 10/15/2018 14:30 53387-2 1MCH RBC Qn 29.4 27.0-34.0 pg 10/15/2018 14:30 92214-2 1RDW RBC 14.4 11.0-15.0 % 10/15/2018 14:30 777-3 1Platelet # Bld Auto 353 130-450 K/uL 10/15/2018 14:30 84917-0 1PMV Bld Auto 7.0 6.0-12.0 fL 10/15/2018 14:30 751-8 1Neutrophils # Bld Auto 68 37-80 % 10/15/2018 14:30 88676-0 1Lymphocytes NFr Bld 23 10-50 % 10/15/2018 14:30 5905-5 1Monocytes NFr Bld Auto 8 0-12 % 10/15/2018 14:30 05001-0 1Eosinophil # Bld 1 <=8 % 10/15/2018 14:30 704-7 1Basophils # Bld Auto 1 <=3 % 10/15/2018 14:30 20195-3 1Neutrophils # Bld 5.7 1.8-8.6 K/uL 10/15/2018 14:30 731-0 1Lymphocytes # Bld Auto 1.9 0.5-5.0 K/uL 10/15/2018 14:30 742-7 1Monocytes # Bld Auto 0.6 0.0-1.3 K/uL 10/15/2018 14:30 51694-6 1Eosinophil # Bld 0.1 0.0-0.9 K/uL 10/15/2018 14:30 704-7 1Basophils # Bld Auto 0.1 0.0-0.3 K/ul 10/15/2018 14:30 Performing Lab Footnotes:[facility] - [id number] - [address] [place] [address] ANDREAS Guerra [id number] Order: COMPREHENSIVE PANEL Specimen Source: Body Site: Legend: (G,H) = High, (GG,HH,CH,#H) = Above High Threshold, (#,L) = Low, (##,CL,#L,LL) = Below Low Threshold, (C,CC,CA,#A,A) = Abnormal LOINC Test Result Flag Range Units Date 295-2 1Sodium SerPl-sCnc 142 136-145 mmol/L 10/15/2018 14:30 2823-3 1Potassium SerPl-sCnc 4.3 3.5-5.2 mmol/L 10/15/2018 14:30 5-0 1Chloride SerPl-sCnc 105 100-108 mmol/L 10/15/2018 14:30 8-9 1CO2 SerPl-sCnc 24 21-32 mmol/L 10/15/2018 14:30 2345-7 1Glucose SerPl-mCnc 65 L 70-100 mg/dL 10/15/2018 14:30 3094-0 1BUN SerPl-mCnc 18 7-21 mg/dL 10/15/2018 14:30 2160-0 1Creat SerPl-mCnc 0.8 0.6-1.3 mg/dL 10/15/2018 14:30 Interpretive Rosemary: 1Normal Kidney Function or Mild Disease - GFR >OR= 60 Chronic Kidney Disease - GFR 15-59 Renal Failure - GFR < 15 GFR not calculated on patients under 18 years of age. Calculated (estimated) GFR is based on the MDRD Study equation, which assumes a steady state for creatinine. Estimated GFR may not be appropriate for medication dosing. 26234-9 1Ca-I SerPl-mCnc 9.4 8.5-10.8 mg/dL 10/15/2018 14:30 37419-6 1GFR/BSA.pred SerPl-ArVRat >60 10/15/2018 14:30 45650-7 1Bilirub Bld-mCnc 0.5 0.0-1.2 mg/dL 10/15/2018 14:30 2885-2 1Prot SerPl-mCnc 6.4 6.4-8.2 gm/dL 10/15/2018 14:30 1751-7 1Albumin SerPl-mCnc 4.3 3.2-4.6 gm/dL 10/15/2018 14:30 6768-6 1ALP SerPl-cCnc 51 40-150 U/L 10/15/2018 14:30 1742-6 1ALT SerPl-cCnc 34 0-55 U/L 10/15/2018 14:30 1920-8 1AST SerPl-cCnc 39 H 5-37 U/L 10/15/2018 14:30 Performing Lab Footnotes:[facility] - [id number] - [address] [place] [address] ANDREAS ZAMORANO Order: C REACTIVE PROTEIN Specimen Source: Body Site: Legend: (G,H) = High, (GG,HH,CH,#H) = Above High Threshold, (#,L) = Low, (##,CL,#L,LL) = Below Low Threshold, (C,CC,CA,#A,A) = Abnormal LOINC Test Result Flag Range Units Date 1987-06 1CRP SerPl-mCnc 4.0 <=5.0 mg/L 10/15/2018 08:09 Performing Lab Footnotes:[facility] - [id number] - [address] [place] [address] ANDREAS ZAMORANO Social History Code Code System Social History Description Dates Observed Observation 916765685 SNOMED CT Current Smoking Unknown if ever [...] Date OTH ACUTE OSTEOMYEL RT ANKLE FOOT [facility] 10/15/2018 Family History Family history not obtained Functional [...]
--- OUTSIDE RECORDS SUMMARY | 2018-11-21 14:37 | XMS REPORT | Continuity of Care Document ---
:1950 Author Organization [facility] Care Team Providers Name Role Phone ANDREAS ROSAS Admitting Physician ANDREAS ROSAS Attending Physician Allergies and Intolerances No Allergy Data in [...] Flag Range Units Date 1987-06 1CRP SerPl-mCnc 2.9 <=5.0 mg/L 10/03/2018 14:15 Performing Lab Footnotes:[facility] - [id number] - [address] [place] [address] ANDREAS OLVERAD1 Order: CBC Specimen Source: Body Site: Legend: (G,H) = High, (GG,HH,CH, #H) = Above High Threshold, (#,L) = Low, (##,CL,#L,LL) = Below Low Threshold, (C ,CC,CA,#A,A) = Abnormal LOINC Test Result Flag Range Units Date 6689- 1WBC # Bld Auto 9.3 4.8-10.8 K/uL 10/03/2018 14:15 39320-8 1RBC # Bld 4.12 L 4.60-6.20 M/uL 10/03/2018 14:15 718-7 1Hgb Bld-mCnc 12.5 L 13.5-18.0 gm/dL 10/03/2018 14:15 4544-3 1Hct VFr Bld Auto 37.3 L 41.0-53.0 % 10/03/2018 14:15 787-2 1MCV RBC Auto 90.4 80.0-100.0 fL 10/03/2018 14:15 84922-1 1MCHC RBC-mCnc 33.4 30.0-36.5 % 10/03/2018 14:15 04801-9 1MCH RBC Qn 30.2 27.0-34.0 pg 10/03/2018 14:15 33610-3 1RDW RBC 14.3 11.0-15.0 % 10/03/2018 14:15 777-3 1Platelet # Bld Auto 349 130-450 K/uL 10/03/2018 14:15 55163-0 1PMV Bld Auto 7.0 6.0-12.0 fL 10/03/2018 14:15 Performing Lab Footnotes:[facility] - [id number] - [address] [place] [address] ANDREAS Guerra JAUN Order: COMPREHENSIVE PANEL Specimen Source: Body Site: Legend: (G,H) = High, (GG,HH,CH,#H) = Above High Threshold, (#,L) = Low, (##,CL,#L,LL) = Below Low Threshold, (C,CC,CA,#A,A) = Abnormal LOINC Test Result Flag Range Units Date 2951-2 1Sodium SerPl-sCnc 140 136-145 mmol/L 10/03/2018 14:15 2823-3 1Potassium SerPl-sCnc 4.7 3.5-5.2 mmol/L 10/03/2018 14:15 5-0 1Chloride SerPl-sCnc 106 100-108 mmol/L 10/03/2018 14:15 8-9 1CO2 SerPl-sCnc 23 21-32 mmol/L 10/03/2018 14:15 2345-7 1Glucose SerPl-mCnc 73 70-100 mg/dL 10/03/2018 14:15 3094-0 1BUN SerPl-mCnc 20 7-21 mg/dL 10/03/2018 14:15 2160-0 1Creat SerPl-mCnc 0.8 0.6-1.3 mg/dL 10/03/2018 14:15 Interpretive Rosemary: 1Normal Kidney Function or Mild Disease - GFR >OR= 60 Chronic Kidney Disease - GFR 15-59 Renal Failure - GFR < 15 GFR not calculated on patients under 18 years of age. Calculated (estimated) GFR is based on the MDRD Study equation, which assumes a steady state for creatinine. Estimated GFR may not be appropriate for medication dosing. 66996-3 1Ca-I SerPl-mCnc 9.8 8.5-10.8 mg/dL 10/03/2018 14:15 19532-4 1GFR/BSA.pred SerPl-ArVRat >60 10/03/2018 14:15 86130-5 1Bilirub Bld-mCnc 0.4 0.0-1.2 mg/dL 10/03/2018 14:15 2885-2 1Prot SerPl-mCnc 6.7 6.4-8.2 gm/dL 10/03/2018 14:15 1751-7 1Albumin SerPl-mCnc 4.3 3.2-4.6 gm/dL 10/03/2018 14:15 6768-6 1ALP SerPl-cCnc 54 40-150 U/L 10/03/2018 14:15 1742-6 1ALT SerPl-cCnc 29 0-55 U/L 10/03/2018 14:15 1920-8 1AST SerPl-cCnc 33 5-37 U/L 10/03/2018 14:15 Performing Lab Footnotes:[facility] - [id number] - [address] [place] [address] ANDREAS MEZACIOMD1 Social History Code Code System Social History Description Dates Observed Observation [id number] SNOMED CT Current Smoking Unknown if ever [...] Date OTH ACUTE OSTEOMYEL RT ANKLE FOOT [facility] 10/03/2018 Family History Family history not obtained Functional [...]
--- OUTSIDE RECORDS SUMMARY | 2018-11-21 14:37 | XMS REPORT | Continuity of Care Document ---
:1950 External Reference #:[id number] Author Name Ravin Damon M.D. (transmitted by agent of provider Justin Meza) Address [address] [facility] [place] [address] Care Team Providers Name Role Phone Jah Palm M.D. 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 Medicine Problems Active Problems Provider Date Essential [...] Unknown Never Smoked Cigarettes Smoking Status Reviewed: 11/14/18 Never Smoked Cigarettes ETOH Use Denies alcohol [...] Available Vital Signs Date Vital Result Comment 11/14/2018 10:40am Height 65 inches 5'5" Weight 225.00 lb Heart Rate 108 /min BP Systolic Sitting 106 mmHg BP Diastolic Sitting 50 mmHg Pain Level 0 O2 % BldC Oximetry 98 % BMI (Body Mass Index) 37.4 kg/m2 11/07/2018 10:53am Height 65 inches 5'5" Weight 225.00 lb Heart Rate 101 /min BP Systolic Sitting 100 mmHg BP Diastolic Sitting 58 mmHg Pain Level 0 O2 % BldC Oximetry 98 % BMI (Body Mass Index) 37.4 kg/m2 Results Test Date Facility Test Result H/L Range Note Xray 11/14/2018 [facility] VL Ank/Brachial . [address] [place] [address] [phone] Laboratory test 11/07/2018 [facility] Erythrocyte Sed 54 mm/Hr High 0-[address] [place] [address] [phone] C Reactive Protein 20.67 mg/L High <8.01 Laboratory test 10/22/2018 [facility] Point of Care 143 mg/dL High 70-[address] [place] [address] [phone] Wound 10/22/2018 [facility] Wound/Misc SEE RESULT 2, 3 Culture/Sensi [address] [place] [address] Stain [phone] Laboratory test 10/22/2018 [facility] Anaerobic SEE RESULT [address] Culture [place]OW [place], [place] [id number] [phone] Surgical Pathology SEE RESULT BELOW 5 Laboratory 10/22/2018 [facility] Point of 161 mg/dL High 70- 100 6 test finding [address] [place] [address] Glucose [phone] Inr/Protime 10/16/2018 [facility] Inr 1.03 Normal 0.82-1.09 7 , [address] [place] [address] [phone] Laboratory 10/16/2018 [facility] Partial 33.3 Normal 26.0- 38.0 9 test finding [address] [address] Time PTT [phone] Basic 10/16/2018 [facility] Sodium 139 mmol/L Normal 135-[address] [place] [address] [phone] Potassium 4.5 mmol/L Normal 3.5-5.0 Chloride 105 mmol/L Normal 101-111 Co2 Carbon Dioxide 24 mmol/L Normal 22-32 Anion Gap 10 mmol/L Normal 2-11 Glucose 113 mg/dL High 70-100 Blood Urea Nitrogen 22 mg/dL Normal 6-24 Creatinine 0.70 mg/dL Normal 0.67-1.17 BUN/Creatinine Ratio 31.4 High 8-20 Calcium 9.9 mg/dL Normal 8.6-10.3 Egfr Non- 112.1 >60 Egfr 135.7 >60 10 Laboratory test 10/16/2018 [facility] C Reactive 4.80 Normal < 8.01 [address] Protein mg/[place] [address] [phone] CBC Auto Diff 10/16/2018 [facility] White Blood 7.1 Normal 3.5 -10.[address] Count 10^3/uL [place], [place] [id number] [phone] Red Blood Count 4.35 10^6/uL Normal 4.18-5.48 [...] Blood Cells % 0.1 Laboratory test 10/16/2018 [facility] Erythrocyte Sed 15 mm/Hr Normal 0-19 [address] Rate [place] [id number] [phone] 1 Tray Worker: [id number] 2 RIGHT FOOT 3 SEE RESULT BELOW Name: TARUN MORRISON : [address]: Ravin Damon MD Acct: [id number] Unit: [id number] AGE: 68 Location: OR Re10/22/18 SEX: M Status: REG SD SPEC: [id number] GINETTE: 10/22/18-[address]: Ravin Damon MD REQ: [id number] RECD: 10/22/181424 STATUS: RES OTHR DR: Jah Palm MD _ SOURCE: WOUND SPDESC: ORDERED: Anaerobic Cult, Culture Stain COMMENTS: RIGHT FOOT Procedure Result Reported Site Anaerobic Culture PENDING Wound/Misc Gram Stain Final 10/22/18- 1511 ML 1+ Epithelial Cells 1+ Neutrophils 1+ Gram Positive Cocci Wound/Misc Culture PENDING * ML - Main Lab . END OF REPORT DEPARTMENT OF PATHOLOGY, [address] [place] [address] Moncho Talbot M.D. Director [facility] # [id number] 4 SEE RESULT BELOW Name: TARUN MORRISON : [address]: Ravin Damon MD Acct: [id number] Unit: [id number] AGE: 68 Location: OR Re10/22/18 SEX: M Status: REG SDC SPEC: [id number] GINETTE: 10/22/[address] [facility] [address]: Ravin Damon MD REQ: [id number] RECD: 10/22/18 STATUS: VALERIA FONSECA DR: Jah [...] ON NEXT PAGE DEPARTMENT OF PATHOLOGY, [facility] [address] [place] [address] Moncho Talbot M.D. Director [facility] # [id number] Specimen: [id number] Collected: 10/22/18 Received: 10/22/18 (Continued) Procedure Result Reported Site Wound/Misc Culture Final (continued) * These antibiotics are not available in the [facility] Formulary Contact the Microbiology Department for any additional antibiotic reporting. * - Main Lab . END OF REPORT DEPARTMENT OF PATHOLOGY, [facility] [address] [place], [place] [address] Moncho Talbot M.D. Director [facility] # [id number] 5 SEE RESULT BELOW Name: TARUN MORRISON : [address]: Ravin Damon MD Acct: [id number] Unit: [id number] AGE: 68 Location: OR Re10/22/18 SEX: M Status: [place] [facility] [place]C: [id number] GINETTE: 10/22/[address]: Ravin Damon MD REQ: [id number] RECD: 10/22/18 STATUS: SOUT _ ORDERED: Decal, LEVEL 3 [...] aggregating 7.0 x 4.0 x 1.7 cm. 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 Signed by and Reported on: Moncho Talbot MD 1645 END OF REPORT DEPARTMENT OF PATHOLOGY, [address] [place] [address] Moncho Talbot M.D. Director [facility] # [id number] 6 Tray Worker: [id number] 10/22 8 Standard intensity warfarin therapeutic [...] 10/22 Procedures Date Code Description Status 10/22/2018 28605 Amputation Toe MP JT Completed 10/22/2018 74183 Amputation Toe MP JT Completed Medical Devices Description No Information Available Encounters Type Date Location Provider Dx Diagnosis Office Visit 09/25/2018 [facility] Yusra [id number] [facility] foot Assessments Date Code Description Provider 11/14/2018 M86.671 Other chronic osteomyelitis, right ankle [...] M86.671 Other chronic osteomyelitis, right ankle and Janet Styles RPA-Arnulfo foot 10/22/2018 M86.671 Other chronic osteomyelitis, right ankle and Ravin Damon M.D. foot 10/10/2018 M86.671 Other chronic osteomyelitis, right ankle and Ravin Damon M.D. foot 09/25/2018 M86.671 Other chronic osteomyelitis, right ankle and Ravin Damon M.D. foot Plan of Treatment Future Appointment(s):11/21/2018 10:30 am - Ravin Damon M.D. at [facility] at [facility]09/11/2019 4:00 pm - Aman Rinaldi M.D. at [place]/ [facility]11/14/2018 - Ravin Damon M.D.M86.671 Other chronic osteomyelitis, right ankle and footNew Xrays:VL Ank/Brachial Indices, Scheduled: 11/15/18Z47.89 Encounter for other orthopedic aftercareFollow up: Follow up: 1 week Functional Status Description No Information Available Mental Status Description No Information Available Referrals Description No Information Available
--- OUTSIDE RECORDS SUMMARY | 2018-11-21 14:38 | XMS REPORT | Continuity of Care Document ---
:1950 External Reference #:[id number] Author Name Anna Duque M.D. 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 Onset: 03/17/2011 Amputated toe Onset: 07/05/2018 Cellulitis of foot Onset: 06/24/2018 Diabetes mellitus Onset: 06/24/2018 Osteomyelitis Onset: 07/05/2018 Bacteremia due to Staphylococcus Anna Duque M.D. Onset: 09/12/2018 aureus Elevated levels of transaminase & Anna Duque M.D. 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 Onset: 07/16/2018 Type 2 diabetes mellitus with ulcer Anna Duque M.D. Onset: 07/16/2018 Acute osteomyelitis of ankle and/or Anna Duque M.D. Onset: 07/16/2018 foot Social History Type Date Description Comments Sex Unknown Tobacco Use Start: Unknown Never Smoked Cigarettes ETOH Use Denies alcohol use Tobacco Use Start: Unknown Patient denies history of smoking Smoking Status Reviewed: 10/31/18 Patient denies history of smoking Allergies, Adverse Reactions, Alerts Description No Known Drug Allergies Medications Active Medications SIG Qnty Indications Ordering Provider Date Cefdinir take one tab by 42caps M86.171 Anna Duque M.D. 10/17/2018 300mg mouth twice a day Capsules x 21 days Flagyl one by mouth 63tabs M86.171 Anna Duque M.D. 10/17/2018 500mg three times a day Tablets x 21 days Aquacel Ag Extra 2" Apply one to 1package Renata, 07/12/2018 X 2"/Hydrofiber right first toe Aman Samayoa, amputation site Janay 2"X2" Pads per day, cut so it fits wound, should not touch healthy skin. Primidone Aman Rinaldi, 50mg MD Tablets Cabergoline Evan Rankin MD 0.5mg Tablets Metformin HCL Gallo Munoz MD 1000mg Tablets Rosuvastatin Unknown Calcium 40mg Tablets Lisinopril Néstor, 2.5mg MD Jah Tablets Glipizide Néstor, 10mg MD Jah Tablets Fluoxetine HCL Néstor, 40mg MD Jah Capsules Zocor 1 po qd 90tabs Unknown 20mg Tablets Aspirin 1 po qd Unknown 81mg Tablets Novolog Mix 70/30 as directed Unknown 70-30% Suspension Levothroid 1 po qd Unknown 100mcg Tablets History Medications Home [facility] Agency [facility] per R78.81 Anna Duque M.D. 08/20/2018 - protocol 10/31/2018 M86.171 Cephalexin 3 Times Daily 30caps Unknown 07/02/2018 - 07/16/2018 500mg Capsules Minocycline HCL 2 Times A Day 20tabs Unknown 07/02/2018 - 07/16/2018 100mg Tablets Immunizations Description No Information Available Vital Signs Date Vital Result Comment 10/31/2018 3:32pm Height 65 inches 5'5" Weight 216.00 lb BMI (Body Mass Index) 35.9 kg/m2 BSA (Body Surface Area) 2.04 m2 [place] body weight in kilograms 62 kg 10/17/2018 1:03pm BP Systolic Sitting Left Arm 117 mmHg BP Diastolic Sitting Left Arm 73 mmHg Body Temperature 97.5 F Heart Rate 89 /min Height 65 inches 5'5" Weight 223.00 lb BMI (Body Mass Index) 37.1 kg/m2 BSA (Body Surface Area) 2.07 m2 [place] body weight in kilograms 62 kg Results Test Date Facility Test Result H/L Range Note CBC W/Auto 10/15/2018 [facility] WBC 8.4 K/uL 4.8-10.8 Differential 17 [place] [address] [phone] RBC 4.30 M/uL Low 4.60-6.20 Hemoglobin 12.7 gm/dL Low 13.5-18.0 Hematocrit 39.0 % Low 41.0-53.0 MCV 90.7 fL 80.0-100.0 MCHC 32.4 % 30.0-36.5 MCH 29.4 pg 27.0-34.0 RDW 14.4 % 11.0-15.0 Platelet 353 K/uL 130-450 MPV 7.0 fL 6.0-12.0 NE% 68 % 37-80 Ly% 23 % 10-50 Mo% 8 % 0-12 Eo% 1 % <=8 Ba% 1 % <=3 NE# 5.7 K/uL 1.8-8.6 Lymph# 1.9 K/uL 0.5-5.0 Charlton# 0.6 K/uL 0.0-1.3 Eos# 0.1 K/uL 0.0-0.9 Baso# 0.1 K/ul 0.0-0.3 Laboratory test 10/15/2018 [facility] C Reactive 4.0 mg/L <=5.0 finding 17 [facility] [place] [address] [phone] Comprehensive Panel 10/15/2018 [facility] Sodium 142 136-145 17 [facility] mmol/[place] [address] [phone] Potassium 4.3 mmol/L 3.5-5.2 Chloride 105 mmol/L 100-108 Co2 24 mmol/L 21-32 Glucose 65 mg/dL Low 70-100 BUN 18 mg/dL 7-21 Creatinine 0.8 mg/dL 0.6-1.3 1 Calcium 9.4 mg/dL 8.5-10.8 GFR >60 T Bili 0.5 mg/dL 0.0-1.2 T Protein 6.4 gm/dL 6.4-8.2 Albumin 4.3 gm/dL 3.2-4.6 Alk Phos 51 U/L 40-150 Alt (SGPT) 34 U/L 0-55 Ast (Sgot) 39 U/L High 5-37 CBC W/No Diff 10/08/2018 [facility] WBC 6.0 K/uL 4.8-10.[address] [place] [phone] RBC 4.21 M/uL Low 4.60-6.20 Hemoglobin 11.9 gm/dL Low 13.5-18.0 Hematocrit 38.1 % Low 41.0-53.0 MCV 90.6 fL 80.0-100.0 MCHC 31.3 % 30.0-36.5 MCH 28.4 pg 27.0-34.0 RDW 14.5 % 11.0-15.0 Platelet 281 K/uL 130-450 MPV 6.9 fL 6.0-12.0 Laboratory test 10/08/2018 [facility] C Reactive 4.0 mg/L <=5.[address] [place] [address] [place] [address] [phone] Comprehensive Panel 10/08/2018 [facility] Sodium 140 136-[address] [place] [address] mmol/[place] [address] [phone] Potassium 4.8 mmol/L 3.5-5.2 Chloride 105 mmol/L 100-108 Co2 26 mmol/L 21-32 Glucose 182 mg/dL High 70-100 BUN 14 mg/dL 7-21 Creatinine 0.7 mg/dL 0.6-1.3 2 Calcium 9.1 mg/dL 8.5-10.8 GFR >60 T Bili 0.4 mg/dL 0.0-1.2 T Protein 6.3 gm/dL Low 6.4-8.2 Albumin 4.2 gm/dL 3.2-4.6 Alk Phos 51 U/L 40-150 Alt (SGPT) 32 U/L 0-55 Ast (Sgot) 33 U/L 5-37 Comprehensive Panel 09/26/2018 [facility] Sodium 139 mmol/L 136-[address] [place] [address] [phone] Potassium 4.5 mmol/L 3.5-5.2 Chloride 107 mmol/L 100-108 Co2 25 mmol/L 21-32 Glucose 102 mg/dL High 70-100 BUN 15 mg/dL 7-21 Creatinine 0.7 mg/dL 0.6-1.3 3 Calcium 8.6 mg/dL 8.5-10.8 GFR >60 T Bili 0.5 mg/dL 0.0-1.2 T Protein 5.8 gm/dL Low 6.4-8.2 Albumin 3.9 gm/dL 3.2-4.6 Alk Phos 47 U/L 40-150 Alt (SGPT) 28 U/L 0-55 Ast (Sgot) 28 U/L 5-37 CBC W/Auto Differential 09/26/2018 [facility] WBC 6.2 K/uL 4.8-10.[address] [place] [phone] RBC 3.99 M/uL Low 4.60-6.20 Hemoglobin 11.8 gm/dL Low 13.5-18.0 Hematocrit 36.3 % Low 41.0-53.0 MCV 90.8 fL 80.0-100.0 MCHC 32.5 % 30.0-36.5 MCH 29.5 pg 27.0-34.0 RDW 14.7 % 11.0-15.0 Platelet 280 K/uL 130-450 MPV 6.8 fL 6.0-12.0 NE% 67 % 37-80 Ly% 22 % 10-50 Mo% 10 % 0-12 Eo% 1 % <=8 Ba% 0 % <=3 NE# 4.2 K/uL 1.8-8.6 Lymph# 1.3 K/uL 0.5-5.0 Charlton# 0.6 K/uL 0.0-1.3 Eos# 0.1 K/uL 0.0-0.9 Baso# 0.0 K/ul 0.0-0.3 Laboratory test 09/26/2018 [facility] C Reactive 5.9 mg/L High <=5.0 finding 17 [facility] [place] [address] [phone] Comprehensive 09/19/2018 [facility] Sodium 141 136-145 Panel 17 [facility] mmol/[place] [address] [phone] Potassium 4.5 mmol/L 3.5-5.2 Chloride 109 mmol/L High 100-108 Co2 24 mmol/L 21-32 Glucose 46 mg/dL Low 70-100 BUN 14 mg/dL 7-21 Creatinine 0.8 mg/dL 0.6-1.3 4 Calcium 9.5 mg/dL 8.5-10.8 GFR >60 T Bili 0.4 mg/dL 0.0-1.2 T Protein 6.4 gm/dL 6.4-8.2 Albumin 4.1 gm/dL 3.2-4.6 Alk Phos 53 U/L 40-150 Alt (SGPT) 28 U/L 0-55 Ast (Sgot) 30 U/L 5-37 CBC W/Auto Differential 09/19/2018 [facility] WBC 9.1 K/uL 4.8-10.8 17 [place] [address] [phone] RBC 4.16 M/uL Low 4.60-6.20 Hemoglobin 12.1 gm/dL Low 13.5-18.0 Hematocrit 37.6 % Low 41.0-53.0 MCV 90.4 fL 80.0-100.0 MCHC 32.2 % 30.0-36.5 MCH 29.1 pg 27.0-34.0 RDW 14.5 % 11.0-15.0 Platelet 394 K/uL 130-450 MPV 7.1 fL 6.0-12.0 NE% 69 % 37-80 Ly% 21 % 10-50 Mo% 8 % 0-12 Eo% 1 % <=8 Ba% 1 % <=3 NE# 6.3 K/uL 1.8-8.6 Lymph# 1.9 K/uL 0.5-5.0 Charlton# 0.8 K/uL 0.0-1.3 Eos# 0.1 K/uL 0.0-0.9 Baso# 0.1 K/ul 0.0-0.3 Laboratory test 09/19/2018 [facility] C Reactive 4.7 mg/L <=5.0 finding 17 [facility] [place] [address] [phone] Comprehensive Panel 09/12/2018 [facility] Sodium 138 136-145 17 [facility] mmol/[place] [address] [phone] Potassium 4.8 mmol/L 3.5-5.2 Chloride 102 mmol/L 100-108 Co2 27 mmol/L 21-32 Glucose 122 mg/dL High 70-100 BUN 17 mg/dL 7-21 Creatinine 0.7 mg/dL 0.6-1.3 5 Calcium 9.2 mg/dL 8.5-10.8 GFR >60 T Bili 0.3 mg/dL 0.0-1.2 T Protein 6.1 gm/dL Low 6.4-8.2 Albumin 3.9 gm/dL 3.2-4.6 Alk Phos 48 U/L 40-150 Alt (SGPT) 25 U/L 0-55 Ast (Sgot) 25 U/L 5-37 CBC W/Auto Differential 09/12/2018 [facility] WBC 7.5 K/uL 4.8-10.[address] [place] [address] [phone] RBC 4.10 M/uL Low 4.60-6.20 Hemoglobin 11.9 gm/dL Low 13.5-18.0 Hematocrit 37.0 % Low 41.0-53.0 MCV 90.2 fL 80.0-100.0 MCHC 32.2 % 30.0-36.5 MCH 29.0 pg 27.0-34.0 RDW 14.4 % 11.0-15.0 Platelet 362 K/uL 130-450 MPV 6.7 fL 6.0-12.0 NE% 72 % 37-80 Ly% 19 % 10-50 Mo% 7 % 0-12 Eo% 2 % <=8 Ba% 1 % <=3 NE# 5.4 K/uL 1.8-8.6 Lymph# 1.4 K/uL 0.5-5.0 Charlton# 0.5 K/uL 0.0-1.3 Eos# 0.1 K/uL 0.0-0.9 Baso# 0.1 K/ul 0.0-0.3 Laboratory test 09/12/2018 [facility] C Reactive 5.0 mg/L <=5.[address] [place] [phone] CBC W/Auto 09/05/2018 [facility] WBC 8.1 K/uL 4.8-10.8 Differential 17 [place] [address] [phone] RBC 4.20 M/uL Low 4.60-6.20 Hemoglobin 12.2 gm/dL Low 13.5-18.0 Hematocrit 38.0 % Low 41.0-53.0 MCV 90.3 fL 80.0-100.0 MCHC 32.1 % 30.0-36.5 MCH 29.0 pg 27.0-34.0 RDW 14.6 % 11.0-15.0 Platelet 293 K/uL 130-450 MPV 6.9 fL 6.0-12.0 NE% 72 % 37-80 Ly% 20 % 10-50 Mo% 7 % 0-12 Eo% 1 % <=8 Ba% 0 % <=3 NE# 5.8 K/uL 1.8-8.6 Lymph# 1.6 K/uL 0.5-5.0 Charlton# 0.6 K/uL 0.0-1.3 Eos# 0.1 K/uL 0.0-0.9 Baso# 0.0 K/ul 0.0-0.3 Laboratory test 09/05/2018 [facility] C Reactive 7.5 mg/L High <=5.0 finding 17 [facility] [place] [address] [phone] Comprehensive 09/05/2018 [facility] Sodium 138 136-[address] [place] [address] mmol/[place] [address] [phone] Potassium 5.1 mmol/L 3.5-5.2 Chloride 105 mmol/L 100-108 Co2 26 mmol/L 21-32 Glucose 115 mg/dL High 70-100 BUN 14 mg/dL 7-21 Creatinine 0.7 mg/dL 0.6-1.3 6 Calcium 9.1 mg/dL 8.5-10.8 GFR >60 T Bili 0.7 mg/dL 0.0-1.2 T Protein 6.0 gm/dL Low 6.4-8.2 Albumin 3.9 gm/dL 3.2-4.6 Alk Phos 47 U/L 40-150 Alt (SGPT) 30 U/L 0-55 Ast (Sgot) 29 U/L 5-37 Comprehensive Panel 08/29/2018 [facility] Sodium 141 mmol/L 136-[address] [place] [phone] Potassium 4.6 mmol/L 3.5-5.2 Chloride 106 mmol/L 100-108 Co2 27 mmol/L 21-32 Glucose 86 mg/dL 70-100 BUN 14 mg/dL 7-21 Creatinine 0.8 mg/dL 0.6-1.3 7 Calcium 9.3 mg/dL 8.5-10.8 GFR >60 T Bili 0.3 mg/dL 0.0-1.2 T Protein 6.1 gm/dL Low 6.4-8.2 Albumin 3.8 gm/dL 3.2-4.6 Alk Phos 40 U/L 40-150 Alt (SGPT) 26 U/L 0-55 Ast (Sgot) 28 U/L 5-37 CBC W/Auto Differential 08/29/2018 [facility] WBC 9.8 K/uL 4.8-10.[address] [place] [phone] RBC 4.19 M/uL Low 4.60-6.20 Hemoglobin 12.5 gm/dL Low 13.5-18.0 Hematocrit 37.9 % Low 41.0-53.0 MCV 90.6 fL 80.0-100.0 MCHC 32.9 % 30.0-36.5 MCH 29.8 pg 27.0-34.0 RDW 14.2 % 11.0-15.0 Platelet 364 K/uL 130-450 MPV 7.1 fL 6.0-12.0 NE% 70 % 37-80 Ly% 19 % 10-50 Mo% 8 % 0-12 Eo% 3 % <=8 Ba% 1 % <=3 NE# 6.8 K/uL 1.8-8.6 Lymph# 1.8 K/uL 0.5-5.0 Charlton# 0.8 K/uL 0.0-1.3 Eos# 0.3 K/uL 0.0-0.9 Baso# 0.1 K/ul 0.0-0.3 Laboratory test 08/29/2018 [facility] C Reactive 1.7 mg/L <=5.0 finding 17 [place] [address] [phone] Laboratory test 08/22/2018 [facility] C Reactive 4.3 mg/L <=5.[address] [place] [address] [phone] CBC W/No Diff 08/22/2018 [facility] WBC 11.2 K/ uL High 4.8-10.[address] [place] [phone] RBC 4.19 M/uL Low 4.60-6.20 Hemoglobin 12.4 gm/dL Low 13.5-18.0 Hematocrit 37.8 % Low 41.0-53.0 MCV 90.4 fL 80.0-100.0 MCHC 32.6 % 30.0-36.5 MCH 29.5 pg 27.0-34.0 RDW 13.9 % 11.0-15.0 Platelet 414 K/uL 130-450 MPV 7.7 fL 6.0-12.0 Comprehensive Panel 08/22/2018 [facility] Sodium 138 mmol/L 136-[address] [place] [phone] Potassium 4.8 mmol/L 3.5-5.2 Chloride 104 mmol/L 100-108 Co2 27 mmol/L 21-32 Glucose 82 mg/dL 70-100 BUN 14 mg/dL 7-21 Creatinine 0.8 mg/dL 0.6-1.3 8 Calcium 9.7 mg/dL 8.5-10.8 GFR >60 T Bili 0.2 mg/dL 0.0-1.2 T Protein 6.1 gm/dL Low 6.4-8.2 Albumin 3.8 gm/dL 3.2-4.6 Alk Phos 52 U/L 40-150 Alt (SGPT) 22 U/L 0-55 Ast (Sgot) 28 U/L 5-37 Staphylococcus Aureus 08/03/2018 [facility] Penicillin G >=0.5 Resistant 9 [address] [place] [address] [phone] Oxacillin <=0.25 Susceptible Tetracycline <=1 Susceptible Trimethoprim/Sulfamethoxazole <=10 Susceptible Gentamicin <=0.5 Susceptible Erythromycin <=0.25 Susceptible Clindamycin <=0.25 Susceptible Ciprofloxacin <=0.5 Susceptible Moxifloxacin <=0.25 Susceptible Levofloxacin 0.25 Susceptible Vancomycin 1 Susceptible Anaerobic Culture W/ 08/03/2018 [facility] Gram Stain FEW WHITE BLOOD [address] <SEE NOTE> [place] [address] [phone] Gram Stain RARE GRAM NEGATI <SEE NOTE> 11 Gram Stain RARE GRAM POSITI <SEE NOTE> 12 Anaerobic Culture NO ANAEROBES ISO <SEE NOTE> 13 Enterobacter 08/03/2018 [facility] Trimethoprim/Sulfamethoxazole <=[address] [place] [address] [place] [address] [phone] Cefazolin >=64 Resistant Ciprofloxacin <=0.25 Susceptible Piperacillin/Tazobactam <=4 Susceptible Ceftazidime <=1 Susceptible Ceftriaxone <=1 Susceptible Cefepime <=1 Susceptible Levofloxacin <=0.12 Susceptible Imipenem <=0.25 Susceptible Gentamicin <=1 Susceptible Tobramycin <=1 Susceptible Routine Culture W/ 08/03/2018 [facility] Gram Stain FEW WHITE BLOOD [address] <SEE NOTE> [place] [address] [phone] Gram Stain RARE GRAM POSITI <SEE NOTE> 15 Gram Stain RARE GRAM NEGATI <SEE NOTE> 16 Aerobic Culture ENTEROBACTER SHILA <SEE NOTE> Abnormal 17 Quantity FEW Aerobic Culture STAPHYLOCOCCUS A <SEE NOTE> Abnormal 18 Quantity FEW Comprehensive Metabolic 08/02/2018 [facility] Glucose 64 mg/dL Low 74-[address] [place] [address] [phone] BUN 11 mg/dL Normal 7-18 Creatinine 0.7 mg/dL Normal 0.6-1.3 Glom Filtration Rate, Estimate >60 mL/min >60 If >60 mL/min >60 20 BUN/Creat 15.7 ratio Sodium 136 mmol/L Normal 136-145 Potassium 4.0 mmol/L Normal 3.5-5.1 Chloride 105 mmol/L Normal 98-107 Carbon Dioxide 24 mmol/L Normal 21-32 Anion Gap 7 mEq/L Low 8-16 Calcium 9.0 mg/dL Normal 8.5-10.1 Total Protein 6.4 g/dL Normal 6.4-8.2 Albumin 2.6 g/dL Low 3.4-5.0 Globulin 3.8 g/dL Normal 1.9-4.3 Alb/Glob 0.7 ratio Bilirubin,Total 0.5 mg/dL Normal 0.2-1.0 Sgot/Ast 56 U/L High 15-37 SGPT/Alt 57 U/L 12-78 Alkaline Phosphatase 52 U/L Normal 45-117 CBC W/Automated 08/02/2018 [facility] White Blood 10.2 K/uL Normal 3.4-10.[address] [place] [address] [phone] Red Blood Count 3.65 M/uL Low 4.20-5.80 Hemoglobin 10.9 gm/dL Low 12.8-17.0 Hematocrit 33.8 % Low 38.0-48.0 Mean Cell Volume 92.6 fl Normal 80.0-96.0 Mean Corpuscular HGB 29.9 pg Normal 27.0-33.0 Mean Corpuscular HGB Conc 32.2 g/dL Normal 31.7-36.0 Platelet Count 399 K/uL High 155-360 Red Cell Distri Width SD 47.2 fl Normal 36-51 Red Cell Distri Width %CV 13.8 % Normal 11.6-15.8 Mean Platelet Volume 9.2 fl Normal 6.6-10.6 Neut% 68.2 % Normal 33.0-73.0 Lymph % 18.2 % Low 20.0-42.0 Charlton % 8.6 % Normal 0.0-10.0 Eo% 2.9 % Normal 0.0-6.6 Bas% 0.8 % Normal 0.0-1.1 Immature Grans 1.3 % Normal 0.0-5.0 NRBC % 0.0 /100WBC < 10/ 100 WBC Neut# 6.97 K/uL Normal 1.8-7.0 Lymph # 1.86 K/uL Normal 1.0-4.0 Charlton # 0.88 K/uL High 0.0-0.8 Eos # 0.30 K/uL Normal 0.0-0.5 Baso # 0.08 K/uL Normal 0.0-0.1 Immature Grans Absolute 0.13 K/uL NRBC # 0.00 K/uL Laboratory 08/02/2018 [facility] C-Reactive 123.0 mg/L High <3.0 test finding [address] Protein,[place] [address] [phone] Blood Culture 07/30/2018 [facility] Gram Stain GRAM Abnormal 21, [address] POSIT[address] [place] [address] CO <SEE [phone] NOTE> Blood Culture Aerobic STAPHYLOCOCCUS A <SEE NOTE> Abnormal 23 Quantity FROM [facility]OTH Gram Stain GRAM POSITIVE CO <SEE NOTE> Abnormal 24 Blood Culture Anaerobic STAPHYLOCOCCUS A <SEE NOTE> Abnormal 25 Quantity FROM BROTH Blood Culture 07/30/2018 [facility] Blood Culture NO GROWTH: FINAL [address] Aerobic <SEE NOTE> [place] [address] [phone] Blood Culture Anaerobic NO GROWTH: FINAL <SEE NOTE> 27 Comprehensive Metabolic 07/30/2018 [facility] Glucose 173 mg/dL High 74-[address] [place], [place] [phone] BUN 12 mg/dL Normal 7-18 Creatinine 0.9 mg/dL Normal 0.6-1.3 Glom Filtration Rate, Estimate >60 mL/min >60 If >60 mL/min >60 28 BUN/Creat 13.3 ratio Sodium 135 mmol/L Low 136-145 Potassium 4.4 mmol/L Normal 3.5-5.1 Chloride 102 mmol/L Normal 98-107 Carbon Dioxide 27 mmol/L Normal 21-32 Anion Gap 6 mEq/L Low 8-16 Calcium 9.4 mg/dL Normal 8.5-10.1 Total Protein 7.5 g/dL Normal 6.4-8.2 Albumin 3.3 g/dL Low 3.4-5.0 Globulin 4.2 g/dL Normal 1.9-4.3 Alb/Glob 0.8 ratio Bilirubin,Total 0.5 mg/dL Normal 0.2-1.0 Sgot/Ast 18 U/L Normal 15-37 SGPT/Alt 34 U/L Normal 12-78 Alkaline Phosphatase 59 U/L Normal 45-117 [id number]-[id number] 07/30/2018 [facility] Penicillin G >=0.[address] [place] [address] [phone] Oxacillin 0.5 Susceptible Tetracycline <=1 Susceptible Trimethoprim/Sulfamethoxazole <=10 Susceptible Gentamicin <=0.5 Susceptible Erythromycin <=0.25 Susceptible Clindamycin <=0.25 Susceptible Ciprofloxacin <=0.5 Susceptible Moxifloxacin <=0.25 Susceptible Levofloxacin 0.25 Susceptible Vancomycin <=0.5 Susceptible Laboratory test 07/30/2018 [facility] C-Reactive 125.0 High <3.[address] Protein,Quant mg/[place] [address] [phone] CBC W/Automated 07/30/2018 [facility] White Blood Count 13.5 K/uL High 3.4- 10.[address] [place], [place] [id number] [phone] Red Blood Count 4.01 M/uL Low 4.20-5.80 Hemoglobin 11.9 gm/dL Low 12.8-17.0 Hematocrit 37.4 % Low 38.0-48.0 Mean Cell Volume 93.3 fl Normal 80.0-96.0 Mean Corpuscular HGB 29.7 pg Normal 27.0-33.0 Mean Corpuscular HGB Conc 31.8 g/dL Normal 31.7-36.0 Platelet Count 483 K/uL High 155-360 Red Cell Distri Width SD 47.1 fl Normal 36-51 Red Cell Distri Width %CV 13.7 % Normal 11.6-15.8 Mean Platelet Volume 9.2 fl Normal 6.6-10.6 Neut% 73.7 % High 33.0-73.0 Lymph % 15.1 % Low 20.0-42.0 Charlton % 7.5 % Normal 0.0-10.0 Eo% 1.7 % Normal 0.0-6.6 Bas% 0.6 % Normal 0.0-1.1 Immature Grans 1.4 % Normal 0.0-5.0 NRBC % 0.0 /100WBC < 10/ 100 WBC Neut# 9.96 K/uL High 1.8-7.0 Lymph # 2.04 K/uL Normal 1.0-4.0 Charlton # 1.02 K/uL High 0.0-0.8 Eos # 0.23 K/uL Normal 0.0-0.5 Baso # 0.08 K/uL Normal 0.0-0.1 Immature Grans Absolute 0.19 K/uL NRBC # 0.00 K/uL Absolute 07/05/2018 N2N/CCD Import Absolute 9.46 High 1.8-7.0 neutrophil count neutrophil count Automated blood 07/05/2018 N2N/CCD Import Automated blood 2.75 1.0-4.0 lymphocyte count lymphocyte count (number/volume) (number/volume) Blood monocytes 07/05/2018 N2N/CCD Import Blood monocytes 0.80 0.0-0.8 automated count automated count (number/volume) (number/volume) Automated blood 07/05/2018 N2N/CCD Import Automated blood 0.12 High 0.0- 0.1 basophil count basophil count (number/volume) (number/volume) Automated blood 07/05/2018 N2N/CCD Import Automated blood 0.55 immature immature granulocyte count granulocyte count (number (number/volume) Automated 07/05/2018 N2N/CCD Import Automated 94.1 80.0-96.0 erythrocyte mean erythrocyte mean corpuscular corpuscular volume volume (MCV (MCV) measurement Automated blood 07/05/2018 N2N/CCD Import Automated blood 0.00 nucleated nucleated erythrocyte count erythrocyte count (count (count/volume) Serum or plasma 07/05/2018 N2N/CCD Import Serum or plasma 20 High 7-18 urea nitrogen urea nitrogen measurement measurement (mass/vo (mass/volume) Automated 07/05/2018 N2N/CCD Import Automated 31.6 Low 31.7-36.0 erythrocyte mean erythrocyte mean corpuscular corpuscular hemoglobin hemoglobin concentration measurement (mass/volume) Estimated 07/05/2018 N2N/CCD Import Estimated >60 >60 glomerular glomerular filtration rate filtration rate (GFR) non-Afr (GFR) non- Serum or plasma 07/05/2018 N2N/CCD Import Serum or plasma 18.1 urea urea nitrogen/creatini nitrogen/creatinin ne mass rati e mass ratio Sodium SerPl-sCnc 07/05/2018 N2N/CCD Import Sodium SerPl-sCnc 135 Low 136 -145 Automated 07/05/2018 N2N/CCD Import Automated 46.2 36-51 erythrocyte erythrocyte distribution distribution width width Serum or plasma 07/05/2018 N2N/CCD Import Serum or plasma 4.8 3.5-5.1 potassium potassium measurement measurement Automated blood 07/05/2018 N2N/CCD Import Automated blood 0.0 < 10/ 100 nucleated nucleated WBC erythrocyte count erythrocyte count as per as percentage of total leukocytes Blood 07/05/2018 N2N/CCD Import Blood erythrocytes 4.04 Low 4.20-5.80 erythrocytes automated count automated count (number/volume) (number/volume) Co2 SerPl-sCnc 07/05/2018 N2N/CCD Import Co2 SerPl-sCnc 30 21-32 Capillary blood 07/05/2018 N2N/CCD Import Capillary blood 203 High 70- 110 glucose glucose measurement by measurement by glucometer glucometer (mass/volume) Serum or plasma 07/05/2018 N2N/CCD Import Serum or plasma 9.2 8.5-10.1 calcium calcium measurement measurement (mass/volume) (mass/volume) Automated blood 07/05/2018 N2N/CCD Import Automated blood 0.27 0.0-0.5 eosinophil count eosinophil count Hct VFr Bld Auto 07/05/2018 N2N/CCD Import Hct VFr Bld Auto 38.0 38.0- 48.0 Serum or plasma 07/05/2018 N2N/CCD Import Serum or plasma 3.0 Low 3.4- 5.0 albumin albumin measurement measurement (mass/volume) (mass/volume) Serum or plasma 07/05/2018 N2N/CCD Import Serum or plasma 172 High 74- 106 glucose glucose measurement measurement (mass/volume) (mass/volume) Automated 07/05/2018 N2N/CCD Import Automated 29.7 27.0-33.0 erythrocyte mean erythrocyte mean corpuscular corpuscular hemoglobin hemoglobin (mass per erythrocyte) Serum or plasma 07/05/2018 N2N/CCD Import Serum or plasma 1.1 0.6-1.3 creatinine creatinine measurement measurement (mass/volum (mass/volume) Automated blood 07/05/2018 N2N/CCD Import Automated blood 19.7 Low 20.0- 42.0 lymphocytes/100 lymphocytes/100 leukocytes leukocytes CBC W/Automated 07/05/2018 [facility] White Blood Count 14.0 High 3.4-10.5 [address] [place] [address] [phone] Red Blood Count 4.04 M/uL Low 4.20-5.80 Hemoglobin 12.0 gm/dL Low 12.8-17.0 Hematocrit 38.0 % Normal 38.0-48.0 Mean Cell Volume 94.1 fl Normal 80.0-96.0 Mean Corpuscular HGB 29.7 pg Normal 27.0-33.0 Mean Corpuscular HGB Conc 31.6 g/dL Low 31.7-36.0 Platelet Count 410 K/uL High 155-360 Red Cell Distri Width SD 46.2 fl Normal 36-51 Red Cell Distri Width %CV 13.6 % Normal 11.6-15.8 Mean Platelet Volume 9.8 fl Normal 6.6-10.6 Neut% 67.9 % Normal 33.0-73.0 Lymph % 19.7 % Low 20.0-42.0 Charlton % 5.7 % Normal 0.0-10.0 Eo% 1.9 % Normal 0.0-6.6 Bas% 0.9 % Normal 0.0-1.1 Immature Grans 3.9 % Normal 0.0-5.0 NRBC % 0.0 /100WBC < 10/ 100 WBC Neut# 9.46 K/uL High 1.8-7.0 Lymph # 2.75 K/uL Normal 1.0-4.0 Charlton # 0.80 K/uL Normal 0.0-0.8 Eos # 0.27 K/uL Normal 0.0-0.5 Baso # 0.12 K/uL High 0.0-0.1 Immature Grans Absolute 0.55 K/uL NRBC # 0.00 K/uL Serum or plasma 07/05/2018 N2N/CCD Import Serum or plasma 0.8 albumin/globulin mass albumin/globulin mass ratio ratio GFR/Bsa pred.black 07/05/2018 N2N/CCD Import GFR/Bsa pred.black >60 >60 SerPl MDRD-ArVRat SerPl MDRD-ArVRat Automated blood 07/05/2018 N2N/CCD Import Automated blood 410 High 155-3 platelet count platelet count 60 (count/volume) (count/volume) Serum or plasma 07/05/2018 N2N/CCD Import Serum or plasma 102 98-10 chloride measurement chloride measurement 7 Automated erythrocyte 07/05/2018 N2N/CCD Import Automated erythrocyte 13.6 11.6- distribution width distribution width 15.8 ratio ratio Serum or plasma anion 07/05/2018 N2N/CCD Import Serum or plasma anion 3 Low 8-16 gap gap Serum or plasma 07/05/2018 N2N/CCD Import Serum or plasma 25 15-37 aspartate aspartate aminotransferase aminotransferase measure measurement (enzymatic activity/volume) Serum or plasma 07/05/2018 N2N/CCD Import Serum or plasma 6.7 6.4-8 protein measurement protein measurement .2 (mass/volume) (mass/volume) Automated blood 07/05/2018 N2N/CCD Import Automated blood 67.9 33.0- neutrophils/100 neutrophils/100 73.0 leukocytes leukocytes Serum globulin 07/05/2018 N2N/CCD Import Serum globulin 3.7 1.9-4 measurement by measurement by .3 calculation (mass/vo calculation (mass/volume) Automated eosinophil 07/05/2018 N2N/CCD Import Automated eosinophil 1.9 0.0-6 % % .6 Serum or plasma 07/05/2018 N2N/CCD Import Serum or plasma 60 45-11 alkaline phosphatase alkaline phosphatase 7 measurement ( measurement (enzymatic activity/volume) Serum or plasma total 07/05/2018 N2N/CCD Import Serum or plasma total 0.4 0.2-1 bilirubin measurement bilirubin measurement .0 (mass/ (mass/volume) Automated monocyte % 07/05/2018 N2N/CCD Import Automated monocyte % 5.7 0.0-1 0.0 Serum or plasma 07/05/2018 N2N/CCD Import Serum or plasma 57 12-78 alanine alanine aminotransferase aminotransferase measureme measurement (enzymatic activity/volume) Comprehensive 07/05/2018 [facility] Glucose 172 High 74-10 Metabolic Panel [address] mg/dL [address] [place] [address] [phone] BUN 20 mg/dL High 7-18 Creatinine 1.1 mg/dL Normal 0.6-1.3 Glom Filtration Rate, Estimate >60 mL/min >60 If >60 mL/min >60 30 BUN/Creat 18.1 ratio Sodium 135 mmol/L Low 136-145 Potassium 4.8 mmol/L Normal 3.5-5.1 Chloride 102 mmol/L Normal 98-107 Carbon Dioxide 30 mmol/L Normal 21-32 Anion Gap 3 mEq/L Low 8-16 Calcium 9.2 mg/dL Normal 8.5-10.1 Total Protein 6.7 g/dL Normal 6.4-8.2 Albumin 3.0 g/dL Low 3.4-5.0 Globulin 3.7 g/dL Normal 1.9-4.3 Alb/Glob 0.8 ratio Bilirubin,Total 0.4 mg/dL Normal 0.2-1.0 Sgot/Ast 25 U/L Normal 15-37 SGPT/Alt 57 U/L Normal 12-78 Alkaline Phosphatase 60 U/L Normal 45-117 Blood hemoglobin 07/05/2018 N2N/CCD Import Blood hemoglobin 12.0 Low 12.8 -17.0 measurement measurement (mass/volume) (mass/volume) Automated blood 07/05/2018 N2N/CCD Import Automated blood 9.8 6.6-10.6 platelet mean platelet mean volume volume measurement measurement Automated 07/05/2018 N2N/CCD Import Automated 0.9 0.0-1.1 basophil % basophil % Automated 07/05/2018 N2N/CCD Import Automated 14.0 High 3.4-10.5 leukocyte count leukocyte count (number/volume) (number/volume) Automated blood 07/05/2018 N2N/CCD Import Automated blood 3.9 0.0-5.0 immature immature granulocyte count granulocyte count as perc as percentage of total leukocytes Manual blood 07/04/2018 N2N/CCD Import Manual blood 24 20-42 lymphocytes/100 lymphocytes/100 leukocytes leukocytes Manual blood 07/04/2018 N2N/CCD Import Manual blood 3 0-7 variant variant lymphocytes as lymphocytes as percentage of percentage of leukocytes Manual blood 07/04/2018 N2N/CCD Import Manual blood 4 0-10 monocytes/100 monocytes/100 leukocytes leukocytes Eosinophil % 07/04/2018 N2N/CCD Import Eosinophil % 3 0-5 Manual blood 07/04/2018 N2N/CCD Import Manual blood 1 0-2 basophils/100 basophils/100 leukocytes leukocytes Blood platelet 07/04/2018 N2N/CCD Import Blood platelet Mod Increase adequacy adequacy detection by detection by light microsc light microscopy Blood 07/04/2018 N2N/CCD Import Blood 0-1+ polychromasia polychromasia detection by detection by light microscopy light microscopy Serum or plasma C 07/04/2018 N2N/CCD Import Serum or plasma C 17.1 High < 3.0 reactive protein reactive protein measurement (ma measurement (mass/volume) Unloinc 07/04/2018 N2N/CCD Import Unloinc Diff Ordered Blood total cell 07/04/2018 N2N/CCD Import Blood total cell 100 count count Manual blood 07/04/2018 N2N/CCD Import Manual blood 1 0% myelocytes/100 myelocytes/100 leukocytes leukocytes Manual blood 07/04/2018 N2N/CCD Import Manual blood 64 33-73 segmented segmented neutrophils/100 neutrophils/100 leukocytes leukocytes Serum or plasma 07/03/2018 N2N/CCD Import Serum or plasma 21.3 15.0- 20.0 trough vancomycin trough vancomycin level at trough level at trough (mass/volume) HgbA1c % 07/02/2018 N2N/CCD Import HgbA1c % 6.1 4.2-6.3 Blood estimated 07/02/2018 N2N/CCD Import Blood estimated 128 average glucose average glucose determination by determination by e estimation from glycated hemoglobin (mass/volume) CBC 06/27/2018 [facility] White Blood Count 11.8 K/uL High 3.4-10.5 [address] [place] [address] [phone] Red Blood Count 4.02 M/uL Low 4.20-5.80 Hemoglobin 12.0 gm/dL Low 12.8-17.0 Hematocrit 37.7 % Low 38.0-48.0 Mean Cell Volume 93.8 fl Normal 80.0-96.0 Mean Corpuscular HGB 29.9 pg Normal 27.0-33.0 Mean Corpuscular HGB Conc 31.8 g/dL Normal 31.7-36.0 Platelet Count 465 K/uL High 155-360 Red Cell Distri Width SD 45.6 fl Normal 36-51 Red Cell Distri Width %CV 13.2 % Normal 11.6-15.8 Mean Platelet Volume 9.9 fl Normal 6.6-10.6 NRBC % 0.0 /100WBC < 10/ 100 WBC Aot Request 06/26/2018 [facility] Aot Request Test(s) added [address] [place] [address] [phone] Tests to be added: crp, esr * Miscellaneous 06/26/2018 N2N/CCD Import * Miscellaneous Test(s) studies (set) studies (set) added Automated 06/26/2018 N2N/CCD Import Automated 111 High 2-45 erythrocyte erythrocyte sedimentation rate sedimentation rate (Esr) (Esr) Anaerobic Culture 2018 [facility] Gram Stain MANY GRAM 32 W/ GR Stain [address] POSITI <[place] [address] NOTE> [phone] Gram Stain MANY GRAM NEGATI <SEE NOTE> 33 Gram Stain RARE WHITE BLOOD <SEE NOTE> 34 Anaerobic Culture NO ANAEROBES ISO <SEE NOTE> 35 Routine Culture W/ 2018 [facility] Gram Stain MANY GRAM POSITI 36 Gram Stain [address] <SEE NOTE> [place] [address] [phone] Gram Stain MODERATE GRAM NE <SEE NOTE> 37 Gram Stain RARE WHITE BLOOD <SEE NOTE> 38 Aerobic Culture STAPHYLOCOCCUS A <SEE NOTE> Abnormal 39 Quantity MODERATE Aerobic Culture ENTEROCOCCUS JOHN <SEE NOTE> Abnormal 40 Quantity MODERATE Staphylococcus Aureus 2018 [facility] Penicillin G >=0.[address] [place] [address] [phone] Oxacillin 0.5 Susceptible Tetracycline <=1 Susceptible Trimethoprim/Sulfamethoxazole <=10 Susceptible Gentamicin <=0.5 Susceptible Erythromycin <=0.25 Susceptible Clindamycin <=0.25 Susceptible Ciprofloxacin <=0.5 Susceptible Moxifloxacin <=0.25 Susceptible Levofloxacin 0.25 Susceptible Vancomycin <=0.5 Susceptible Enterococcus Avium 2018 [facility] Penicillin G 0.[address] [place], [place] [id number] [phone] Tetracycline <=1 Susceptible Ampicillin <=2 Susceptible Erythromycin 0.5 Susceptible Ciprofloxacin <=0.5 Susceptible Levofloxacin 1 Susceptible Vancomycin <=0.5 Susceptible Bacterial 2018 N2N/CCD Import Bacterial No Anaerobes anaerobic culture anaerobic culture Isolated Serum or plasma 2018 N2N/CCD Import Serum or plasma <2.1 Low 15.0- 40.0 phenobarbital phenobarbital measurement measurement (mass/vo (mass/volume) Urine color 2018 N2N/CCD Import Urine color Yellow Yellow determination determination Urine appearance 2018 N2N/CCD Import Urine appearance Clear Clear determination determination Urine glucose 2018 N2N/CCD Import Urine glucose Negative Negative measurement by measurement by automated test automated test strip strip (mass/volume) Urine total 2018 N2N/CCD Import Urine total Negative Negative bilirubin bilirubin detection by detection by automated test automated test strip Urine ketones 2018 N2N/CCD Import Urine ketones Negative Negative measurement by measurement by automated test automated test strip strip (mass/volume) Specific gravity 2018 N2N/CCD Import Specific gravity 1.015 1.010- 1.030 of Urine by of Urine by Automated test Automated test strip strip Urine hemoglobin 2018 N2N/CCD Import Urine hemoglobin Small High Negative detection by detection by automated test automated test strip strip Urine pH 2018 N2N/CCD Import Urine pH 6.5 6.5-7.5 measurement by measurement by automated test automated test strip strip Urine protein 2018 N2N/CCD Import Urine protein Trace Negative measurement by measurement by automated test automated test strip strip (mass/volume) Urine 2018 N2N/CCD Import Urine 4.0 High 0.2-1.0 urobilinogen urobilinogen measurement measurement (units/volume) by (units/volume) by t test strip Urine nitrite 2018 N2N/CCD Import Urine nitrite Negative Negative detection by detection by automated test automated test strip strip Urine leukocyte 2018 N2N/CCD Import Urine leukocyte Negative Negative esterase esterase detection by detection by automated te automated test strip Automated urine 2018 N2N/CCD Import Automated urine 0-2 0-2 sediment sediment erythrocyte count erythrocyte count by micr by microscopy (number/high power field) Urine sediment 2018 N2N/CCD Import Urine sediment 0-2 0-7 leukocyte count leukocyte count by microscopy by microscopy (numb (number/high power field) Epithelial cells 2018 N2N/CCD Import Epithelial cells Very Few None Seen detection in detection in urine sediment by urine sediment by li light microscopy Serum or plasma 2018 N2N/CCD Import Serum or plasma 1.2 0.4-1.9 lactate lactate measurement measurement (moles/volume) (moles/volume) Anaerobic blood 2018 N2N/CCD Import Anaerobic blood No Growth: culture culture Final Report Manual blood band 06/24/2018 N2N/CCD Import Manual blood band 1 0-8 neutrophils neutrophils form/100 form/100 leukocytes leukocytes Blood 06/24/2018 N2N/CCD Import Blood 1+ anisocytosis anisocytosis detection by detection by light microscopy light microscopy Blood toxic 06/24/2018 N2N/CCD Import Blood toxic 1+ granules granules detection by detection by light microscopy light microscopy Blood rouleaux 06/24/2018 N2N/CCD Import Blood rouleaux 1+ detection by detection by light microscopy light microscopy Blood manual 06/24/2018 N2N/CCD Import Blood manual LRG PLTS differential differential Noted comment comment interpretation ( interpretation (narrative result) Aerobic blood 06/24/2018 N2N/CCD Import Aerobic blood Organism: culture culture Bacillus Species,Not Anthracis 1 Normal Kidney Function or Mild Disease - GFR >OR= 60 Chronic Kidney Disease - GFR 15-59 Renal Failure - GFR < 15 GFR not calculated on patients under 18 years of age. 2 Normal Kidney Function or Mild Disease - GFR >OR= 60 Chronic Kidney Disease - GFR 15-59 Renal Failure - GFR < 15 GFR not calculated on patients under 18 years of age. 3 Normal Kidney Function or Mild Disease - GFR >OR= 60 Chronic Kidney Disease - GFR 15-59 Renal Failure - GFR < 15 GFR not calculated on patients under 18 years of age. 4 Normal Kidney Function or Mild Disease - GFR >OR= 60 Chronic Kidney Disease - GFR 15-59 Renal Failure - GFR < 15 GFR not calculated on patients under 18 years of age. 5 Normal Kidney Function or Mild Disease - GFR >OR= 60 Chronic Kidney Disease - GFR 15-59 Renal Failure - GFR < 15 GFR not calculated on patients under 18 years of age. 6 Normal Kidney Function or Mild Disease - GFR >OR= 60 Chronic Kidney Disease - GFR 15-59 Renal Failure - GFR < 15 GFR not calculated on patients under 18 years of age. 7 Normal Kidney Function or Mild Disease - GFR >OR= 60 Chronic Kidney Disease - GFR 15-59 Renal Failure - GFR < 15 GFR not calculated on patients under 18 years of age. 8 Normal Kidney Function or Mild Disease - GFR >OR= 60 Chronic Kidney Disease - GFR 15-59 Renal Failure - GFR < 15 GFR not calculated on patients under 18 years of age. 9 INPT/OBS 10 FEW WHITE BLOOD CELLS 11 RARE GRAM NEGATIVE BACILLI 12 RARE GRAM POSITIVE COCCI 13 NO ANAEROBES ISOLATED 14 FEW WHITE BLOOD CELLS 15 RARE GRAM POSITIVE COCCI 16 RARE GRAM NEGATIVE BACILLI 17 ENTEROBACTER CLOACAE COMPLEX 18 STAPHYLOCOCCUS AUREUS 19 CELLULITIS, BACTEREMIA 20 Note: Persistent reduction for 3 months or more in an eGFR <60 mL/min/1.73 m2 defines CKD. Patients with eGFR values >/=60 mL/min/1.73 m2 may also have CKD if evidence of persistent proteinuria is present. The original MDRD equation for estimated GFR is not valid for patients less than 18 years of age. Additional information may be found at [email or web address]. 21 M86.171 22 GRAM POSITIVE COCCI 23 STAPHYLOCOCCUS AUREUS 24 GRAM POSITIVE COCCI 25 STAPHYLOCOCCUS AUREUS 26 NO GROWTH: FINAL REPORT 27 NO GROWTH: FINAL REPORT 28 Note: Persistent reduction for 3 months or more in an eGFR <60 mL/min/1.73 m2 defines CKD. Patients with eGFR values >/=60 mL/min/1.73 m2 may also have CKD if evidence of persistent proteinuria is present. The original MDRD equation for estimated GFR is not valid for patients less than 18 years of age. Additional information may be found at [email or web address]. 29 CELLULITIS RT FOOT, DIABETES 30 Note: Persistent reduction for 3 months or more in an eGFR <60 mL/min/1.73 m2 defines CKD. Patients with eGFR values >/=60 mL/min/1.73 m2 may also have CKD if evidence of persistent proteinuria is present. The original MDRD equation for estimated GFR is not valid for patients less than 18 years of age. Additional information may be found at [email or web address]. 31 Tests: crp, esr Instructions: 32 MANY GRAM POSITIVE COCCI 33 MANY GRAM NEGATIVE BACILLI 34 RARE WHITE BLOOD CELLS 35 NO ANAEROBES ISOLATED 36 MANY GRAM POSITIVE COCCI 37 MODERATE GRAM NEGATIVE BACILLI 38 RARE WHITE BLOOD CELLS 39 STAPHYLOCOCCUS AUREUS 40 ENTEROCOCCUS AVIUM Procedures Date Code Description Status 08/03/2018 75329 Debridement subcutaneous tissue muscle bone Completed 06/29/2018 76004 Amputation, toe, interphalangeal joint Completed 2018 31500 Debridement:Skin, And Subcutaneous Tissue Completed Medical Devices Description No Information Available Encounters Type Date Location Provider Dx Diagnosis Office Visit 10/31/2018 Physical Medicine Anna Duque M86.171 Other acute 3:00p & Infectious M.D. osteomyelitis, Disease right ankle and foot E11.621 Type 2 diabetes mellitus with foot ulcer R74.0 Nonspec elev of levels of transamns & lactic acid dehydrgnse Office Visit 10/17/2018 Physical Anna Duque M86.171 Other acute 1:00p Medicine & M.D. osteomyelitis, right Infectious ankle and foot Disease E11.621 Type 2 diabetes mellitus with foot ulcer R74.0 Nonspec elev of levels of transamns & lactic acid dehydrgnse R78.81 Bacteremia Office Visit 10/03/2018 Physical Anna Duque M86.171 Other acute 1:30p Medicine & M.D. osteomyelitis, right Infectious ankle and foot Disease E11.621 Type 2 diabetes mellitus with foot ulcer R78.81 Bacteremia R74.0 Nonspec elev of levels of transamns & lactic acid dehydrgnse Office Visit 09/12/2018 Physical Anna Duque M86.171 Other acute 1:00p Medicine & M.D. osteomyelitis, right Infectious ankle and foot Disease R78.81 Bacteremia E11.621 Type 2 diabetes mellitus with foot ulcer R74.0 Nonspec elev of levels of transamns & lactic acid dehydrgnse Office Visit 07/30/2018 Physical Anna Duque M86.171 Other acute 2:00p Medicine & M.D. osteomyelitis, right Infectious ankle and foot Disease L03.031 Cellulitis of right toe E11.621 Type 2 diabetes mellitus with foot ulcer Office Visit 07/16/2018 Physical Anna Duque M86.171 Other acute 2:30p Medicine & M.D. osteomyelitis, right Infectious ankle and foot Disease L03.031 Cellulitis of right toe E11.621 Type 2 diabetes mellitus with foot ulcer N17.9 Acute kidney failure, unspecified Office Visit 2018 Operating Room Renata, Bonny03.115 Cellulitis of 2:50p Christopher H., right lower limb M.D. E11.621 Type 2 diabetes mellitus with foot ulcer Assessments Date Code Description Provider 10/31/2018 M86.171 Other acute osteomyelitis, right Anna Duuqe M.D. ankle and foot 10/31/2018 E11.621 Type 2 diabetes mellitus with foot Anna Duque M.D. ulcer 10/31/2018 R74.0 Nonspecific elevation of levels of Anna Duque M.D. transaminase and lactic acid dehydrogenase [LDH] 10/17/2018 M86.171 Other acute osteomyelitis, right Anna Duque M.D. ankle and foot 10/17/2018 E11.621 Type 2 diabetes mellitus with foot Anna Duque M.D. ulcer 10/17/2018 R74.0 Nonspecific elevation of levels of Anna Duque M.D. transaminase and lactic acid dehydrogenase [LDH] 10/17/2018 R78.81 Bacteremia Anna Duque M.D. 10/03/2018 M86.171 Other acute osteomyelitis, right Anna Duque M.D. ankle and foot 10/03/2018 E11.621 Type 2 diabetes mellitus with foot Anna Duque M.D. ulcer 10/03/2018 R78.81 Bacteremia Anna Duque M.D. 10/03/2018 R74.0 Nonspecific elevation of levels of Anna Duque M.D. transaminase and lactic acid dehydrogenase [LDH] 09/12/2018 M86.171 Other acute osteomyelitis, right Anna Duque M.D. ankle and foot 09/12/2018 R78.81 Bacteremia Anna Duque M.D. 09/12/2018 E11.621 Type 2 diabetes mellitus with foot Anna Duque M.D. ulcer 09/12/2018 R74.0 Nonspecific elevation of levels of Anna Duque M.D. transaminase and lactic acid dehydrogenase [LDH] 08/23/2018 M86.171 Other acute osteomyelitis, right Jenae Burns [place] ankle and foot 08/07/2018 R78.81 Bacteremia Anna Duque M.D. 08/07/2018 D72.829 Elevated white blood cell count, Carlitos Araiza M.D. unspecified 08/07/2018 E11.69 Type 2 diabetes mellitus with other Anna Duque M.D. specified complication 08/07/2018 E11.69 Type 2 diabetes mellitus with other Carlitos Araiza M.D. specified complication 08/07/2018 B96.89 Other specified bacterial agents as Anna Duque M.D. the cause of diseases classified elsewhere 08/07/2018 M86.171 Other acute osteomyelitis, right Carlitos Araiza M.D. ankle and foot 08/07/2018 M86.171 Other acute osteomyelitis, right Anna Duque M.D. ankle and foot 08/07/2018 R78.81 Bacteremia Carlitos Araiza M.D. 08/05/2018 D72.829 Elevated white blood cell count, Carlitos Araiza M.D. unspecified 08/05/2018 E11.69 Type 2 diabetes mellitus with other Carlitos Araiza M.D. specified complication 08/05/2018 M86.171 Other acute osteomyelitis, right Carlitos Araiza M.D. ankle and foot 08/05/2018 R78.81 Bacteremia Carlitos Araiza M.D. 08/04/2018 D72.829 Elevated white blood cell count, Carlitos Araiza M.D. unspecified 08/04/2018 E11.69 Type 2 diabetes mellitus with other Carlitos Araiza M.D. specified complication 08/04/2018 M86.171 Other acute osteomyelitis, right Carlitos Araiza M.D. ankle and foot 08/04/2018 R78.81 Bacteremia Carlitos Araiza M.D. 08/03/2018 M86.171 Other acute osteomyelitis, right Stan Macias MD,FACS ankle and foot 08/03/2018 R78.81 Bacteremia Anna Duque M.D. 08/03/2018 D72.829 Elevated white blood cell count, Carlitos Araiza M.D. unspecified 08/03/2018 E11.69 Type 2 diabetes mellitus with other Anna Duque M.D. specified complication 08/03/2018 E11.69 Type 2 diabetes mellitus with other Carlitos Araiza M.D. specified complication 08/03/2018 B96.89 Other specified bacterial agents as Anna Duque M.D. the cause of diseases classified elsewhere 08/03/2018 M86.171 Other acute osteomyelitis, right Anna Duque M.D. ankle and foot 08/03/2018 M86.171 Other acute osteomyelitis, right Carlitos Araiza M.D. ankle and foot 08/03/2018 R78.81 Bacteremia Carlitos Araiza M.D. 08/02/2018 R78.81 Bacteremia Anna Duque M.D. 08/02/2018 D72.829 Elevated white blood cell count, Carlitos Araiza M.D. unspecified 08/02/2018 E11.69 Type 2 diabetes mellitus with other Anna Duque M.D. specified complication 08/02/2018 E11.69 Type 2 diabetes mellitus with other Carlitos Araiza M.D. specified complication 08/02/2018 B96.89 Other specified bacterial agents as Carlitos Araiza M.D. the cause of diseases classified elsewhere 08/02/2018 B96.89 Other specified bacterial agents as Anna Duque M.D. the cause of diseases classified elsewhere 08/02/2018 M86.171 Other acute osteomyelitis, right Anna Duque M.D. ankle and foot 08/02/2018 M86.171 Other acute osteomyelitis, right Carlitos Araiza M.D. ankle and foot 08/01/2018 R78.81 Bacteremia Anna Duque M.D. 08/01/2018 D72.829 Elevated white blood cell count, Carlitos Araiza M.D. unspecified 08/01/2018 E11.69 Type 2 diabetes mellitus with other Anna Duque M.D. specified complication 08/01/2018 E11.69 Type 2 diabetes mellitus with other Carlitos Araiza M.D. specified complication 08/01/2018 B96.89 Other specified bacterial agents as Carlitos Araiza M.D. the cause of diseases classified elsewhere 08/01/2018 B96.89 Other specified bacterial agents as Anna Duque M.D. the cause of diseases classified elsewhere 08/01/2018 M86.171 Other acute osteomyelitis, right Anna Duque M.D. ankle and foot 08/01/2018 R93.6 Abnormal findings on diagnostic Carlitos Araiza M.D. imaging of limbs 07/31/2018 D72.829 Elevated white blood cell count, Carlitos Araiza M.D. unspecified 07/31/2018 E11.69 Type 2 diabetes mellitus with other Carlitos Araiza M.D. specified complication 07/31/2018 B96.89 Other specified bacterial agents as Carlitos Araiza M.D. the cause of diseases classified elsewhere 07/31/2018 Z87.39 Personal history of other diseases Carlitos Araiza M.D. of the musculoskeletal system and connective tissue 07/30/2018 M86.171 Other acute osteomyelitis, right Anna Duque M.D. ankle and foot 07/30/2018 L03.031 Cellulitis of right toe Anna Duque M.D. 07/30/2018 E11.621 Type 2 diabetes mellitus with foot Anna Duque M.D. ulcer 07/16/2018 M86.171 Other acute osteomyelitis, right Anna Duque M.D. ankle and foot 07/16/2018 L03.031 Cellulitis of right toe Anna Duque M.D. 07/16/2018 E11.621 Type 2 diabetes mellitus with foot Anna Duque M.D. ulcer 07/16/2018 N17.9 Acute kidney failure, unspecified Anna Duque M.D. 07/12/2018 M86.171 Other acute osteomyelitis, right Jenae Burns OLMAN ankle and foot 07/05/2018 R74.0 Nonspecific elevation of levels of Anna Duque M.D. transaminase and lactic acid dehydrogenase [LDH] 07/05/2018 E11.621 Type 2 diabetes mellitus with foot Brenda Avitia, BETHANY ulcer 07/05/2018 M86.171 Other acute osteomyelitis, right Anna Duque M.D. ankle and foot 07/05/2018 A41.9 Sepsis, unspecified organism Brenda Avitia NP 07/05/2018 M86.171 Other acute osteomyelitis, right Brenda Avitia NP ankle and foot 07/05/2018 E11.65 Type 2 diabetes mellitus with Brenda Avitia NP hyperglycemia 07/05/2018 A41.01 Sepsis due to Methicillin Anna Duque M.D. susceptible Staphylococcus aureus 07/05/2018 B96.89 Other specified bacterial agents as Anna Duque M.D. the cause of diseases classified elsewhere 07/04/2018 R74.0 Nonspecific elevation of levels of Anna Duque M.D. transaminase and lactic acid dehydrogenase [LDH] 07/04/2018 E11.621 Type 2 diabetes mellitus with foot Brenda Avitia, DATA MINING ANALYST ulcer 07/04/2018 M86.171 Other acute osteomyelitis, right Anna Duque M.D. ankle and foot 07/04/2018 A41.01 Sepsis due to Methicillin Anna Duque M.D. susceptible Staphylococcus aureus 07/04/2018 A41.9 Sepsis, unspecified organism Brenda Avitia NP 07/04/2018 B96.89 Other specified bacterial agents as Anna Duque M.D. the cause of diseases classified elsewhere 07/04/2018 M86.171 Other acute osteomyelitis, right Roder, Brenda, DATA MINING ANALYST ankle and foot 07/04/2018 E11.65 Type 2 diabetes mellitus with Roder, Brenda, DATA MINING ANALYST hyperglycemia 07/03/2018 R74.0 Nonspecific elevation of levels of Anna Duque M.D. transaminase and lactic acid dehydrogenase [LDH] 07/03/2018 E11.621 Type 2 diabetes mellitus with foot Roder, Brenda, DATA MINING ANALYST ulcer 07/03/2018 M86.171 Other acute osteomyelitis, right Anna Duque M.D. ankle and foot 07/03/2018 A41.01 Sepsis due to Methicillin Anna Duque M.D. susceptible Staphylococcus aureus 07/03/2018 A41.9 Sepsis, unspecified organism Lindener, Brenda, DATA MINING ANALYST 07/03/2018 B96.89 Other specified bacterial agents as Anna Duque M.D. the cause of diseases classified elsewhere 07/03/2018 M86.171 Other acute osteomyelitis, right Roder, Brenda, DATA MINING ANALYST ankle and foot 07/03/2018 E11.65 Type 2 diabetes mellitus with Roder, Brenda, DATA MINING ANALYST hyperglycemia 07/02/2018 E11.621 Type 2 diabetes mellitus with foot Roder, Brenda, DATA MINING ANALYST ulcer 07/02/2018 A41.9 Sepsis, unspecified organism Roder, Brenda, DATA MINING ANALYST 07/02/2018 M86.171 Other acute osteomyelitis, right Roder, Brenda, DATA MINING ANALYST ankle and foot 07/02/2018 E11.65 Type 2 diabetes mellitus with Roder, Brenda, DATA MINING ANALYST hyperglycemia 07/01/2018 E11.621 Type 2 diabetes mellitus with foot Juan F Vizcaino, SOLAR ENERGY SYSTEMS ENGINEER ulcer 07/01/2018 L03.115 Cellulitis of right lower limb Juan F Vizcaino FNP 07/01/2018 A41.9 Sepsis, unspecified organism Juan F Vizcaino, SOLAR ENERGY SYSTEMS ENGINEER 07/01/2018 M86.171 Other acute osteomyelitis, right Juan F Vizcaino, SOLAR ENERGY SYSTEMS ENGINEER ankle and foot 06/30/2018 E11.621 Type 2 diabetes mellitus with foot Juan F Vizcaino FNP ulcer 06/30/2018 L03.115 Cellulitis of right lower limb Juan F Vizcaino FNP 06/30/2018 A41.9 Sepsis, unspecified organism Juan F Vizcaino FNP 06/30/2018 M86.171 Other acute osteomyelitis, right Juan F Vizcaino FNP ankle and foot 06/29/2018 R74.0 Nonspecific elevation of levels of Anna Duque M.DShannan transaminase and lactic acid dehydrogenase [LDH] 06/29/2018 E11.621 Type 2 diabetes mellitus with foot Juan F Vizcaino FNP ulcer 06/29/2018 M86.171 Other acute osteomyelitis, right MeAnna layton MShannanD. ankle and foot 06/29/2018 L03.115 Cellulitis of right lower limb Juan F Vizcaino FNP 06/29/2018 M86.271 Subacute osteomyelitis, right ankle Aamn Yanez M.D. and foot 06/29/2018 A41.01 Sepsis due to Methicillin Anna Duque, M.D. susceptible Staphylococcus aureus 06/29/2018 B96.89 Other specified bacterial agents as Mekinjal, Anna, M.D. the cause of diseases classified elsewhere 06/29/2018 A41.9 Sepsis, unspecified organism Juan F Vizcaino FNP 06/29/2018 M86.171 Other acute osteomyelitis, right Juan F Vizcaino FNP ankle and foot 06/28/2018 R74.0 Nonspecific elevation of levels of Anna Duque M.DShannan transaminase and lactic acid dehydrogenase [LDH] 06/28/2018 E11.621 Type 2 diabetes mellitus with foot Juan F Vizcaino FNP ulcer 06/28/2018 L03.115 Cellulitis of right lower limb Juan F Vizcaino FNP 06/28/2018 M86.171 Other acute osteomyelitis, right MeAnna layton, M.D. ankle and foot 06/28/2018 A41.01 Sepsis due to Methicillin Anna Duque, M.D. susceptible Staphylococcus aureus 06/28/2018 B96.89 Other specified bacterial agents as MeAnna layton, M.D. 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 transaminase and lactic acid dehydrogenase [LDH] 06/26/2018 M86.171 Other acute osteomyelitis, right Anna Duque M.D. ankle and foot 06/26/2018 L03.115 Cellulitis of right lower limb Juan F Vizcaino, SOLAR ENERGY SYSTEMS ENGINEER 06/26/2018 A41.9 Sepsis, unspecified organism Anna Duque M.D. 06/26/2018 D72.829 Elevated white blood cell count, Juan F Vizcaino, SOLAR ENERGY SYSTEMS ENGINEER unspecified 06/26/2018 E11.621 Type 2 diabetes mellitus with foot Anna Duque M.D. ulcer 06/26/2018 A41.9 Sepsis, unspecified organism Juan F Vizcaino, SOLAR ENERGY SYSTEMS ENGINEER 2018 E11.621 Type 2 diabetes mellitus with foot Juan F Vizcaino, SOLAR ENERGY SYSTEMS ENGINEER ulcer 2018 L03.115 Cellulitis of right lower limb Aman Yanez M.D. 2018 E11.621 Type 2 diabetes mellitus with foot Aman Yanez M.D. ulcer 2018 L03.115 Cellulitis of right lower limb Juan F Vizcaino, SOLAR ENERGY SYSTEMS ENGINEER 2018 D72.829 Elevated white blood cell count, Juan F Vizcaino, SOLAR ENERGY SYSTEMS ENGINEER unspecified 2018 R74.0 Nonspecific elevation of levels of Cadet, Juan F, SOLAR ENERGY SYSTEMS ENGINEER transaminase and lactic acid dehydrogenase [LDH] 06/24/2018 E11.621 Type 2 diabetes mellitus with foot Gallo Teague MD ulcer 06/24/2018 L03.115 Cellulitis of right lower limb Gallo Teague MD 06/24/2018 D72.829 Elevated white blood cell count, Gallo Teague MD unspecified 06/24/2018 N17.9 Acute kidney failure, unspecified Gallo Teague MD Plan of Treatment Future Appointment(s):11/28/2018 1:00 pm - Anna Duque M.D. at [facility] Functional Status Description No Information Available Mental Status Description No Information Available Referrals Refer to Dr Reason for Referral Status Appt Date Ravin Damon M.D. Need for further debridement vs amputation. Closed 09/25/2018 Patient has been on IV Abx since hospitalization in August 07, 2018. Repeat MRI ordered. [address] [place] [address] [phone] Ravin Damon M.D. Closed [address] [place] [address] [phone] Chayo Hale NP Right 1st toe amputation performed by Dr. Berg 08/2018 Renata on 06/29. [facility] [address] [place] [phone]
--- OUTSIDE RECORDS SUMMARY | 2018-11-21 14:38 | XMS REPORT | Continuity of Care Document ---
:1950 External Reference #:[id number] Author Name Ravin Damon M.D. (transmitted by agent of provider Justin Meza) Address [address] [place] [address] [place] [address] Care Team Providers Name Role Phone Jah Palm M.D. 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 a day.. Aspir-81 1 by mouth Unknown 81mg Tablets every day Metformin HCL 1 by mouth Unknown 1000mg twice a day Tablets Levothyroxine Sodium 1 by mouth Unknown every day 125mcg Tablets Fluoxetine HCL 1 by mouth Unknown 40mg every day Capsules Glipizide 1 by mouth Unknown 10mg Tablets daily Rosuvastatin Calcium take one tablet 90tabs Unknown daily 40mg Tablets Humulin 70/30 16 units in in Unknown the morning and (70-30)100Unit/ML 16 units in at Suspension night Allopurinol Take Two Unknown 100mg Tablets By Tablets Mouth Every Day Lisinopril 1 by mouth Unknown 2.5mg every day Tablets Cabergoline take 1 tab by Unknown 0.5mg mouth twice Tablets weekly Cefdinir Take One Unknown 300mg Capsules Capsule By Mouth Twice A Day Metronidazole Take One Tablet Unknown 500mg By Mouth Three Tablets Times A Day History Medications Oxycodone HCL 1 tabs by mouth 12tabs Ravin Damon, 10/22/2018 - 5mg every 6 hours as M.D. 10/30/2018 Tablets needed Immunizations Description No Information Available Vital Signs Date Vital Result Comment 10/31/2018 2:08pm Height 65 inches 5'5" Heart Rate 91 /min BP Systolic Sitting 102 mmHg BP Diastolic Sitting 60 mmHg Respiratory Rate 12 /min no resp difficulties Body Temperature 99.5 F Pain Level 0 O2 % BldC Oximetry 98 % 10/10/2018 9:45am Height 65 inches 5'5" Heart Rate 85 /min BP Systolic Sitting 102 mmHg BP Diastolic Sitting 60 mmHg Respiratory Rate 12 /min no resp difrficulties Pain Level 0 O2 % BldC Oximetry 98 % Results Test Date Facility Test Result H/L Range Note Laboratory test 10/22/2018 [facility] Point of Care 143 mg/dL High 70-[address] [place] [address] [phone] Wound 10/22/2018 [facility] Wound/Misc SEE RESULT 2, 3 Culture/Sensi [address] [place] [address] Stain [phone] Laboratory test 10/22/2018 [facility] Anaerobic SEE RESULT [address] Culture BELOW [place], [place] [id number] [phone] Surgical Pathology SEE RESULT BELOW 5 Laboratory 10/22/2018 [facility] Point of 161 mg/dL High 70- 100 6 test finding [address] [place] [address] Glucose [phone] Inr/Protime 10/16/2018 [facility] Inr 1.03 Normal 0.82-1.09 7 , [address] [place] [address] [phone] Laboratory 10/16/2018 [facility] Partial 33.3 Normal 26.0- 38.0 9 test finding [address] [address] Time PTT [phone] Basic 10/16/2018 [facility] Sodium 139 mmol/L Normal 135-[address] [place] [address] [phone] Potassium 4.5 mmol/L Normal 3.5-5.0 Chloride 105 mmol/L Normal 101-111 Co2 Carbon Dioxide 24 mmol/L Normal 22-32 Anion Gap 10 mmol/L Normal 2-11 Glucose 113 mg/dL High 70-100 Blood Urea Nitrogen 22 mg/dL Normal 6-24 Creatinine 0.70 mg/dL Normal 0.67-1.17 BUN/Creatinine Ratio 31.4 High 8-20 Calcium 9.9 mg/dL Normal 8.6-10.3 Egfr Non- 112.1 >60 Egfr 135.7 >60 10 Laboratory test 10/16/2018 [facility] C Reactive 4.80 Normal < 8.01 11 finding 101 [facility] Protein mg/[place] [address] [phone] CBC Auto Diff 10/16/2018 [facility] White Blood 7.1 Normal 3.5 -10.[address] Count 10^3/[place] [address] [phone] Red Blood Count 4.35 10^6/uL Normal 4.18-5.48 [...] Blood Cells % 0.1 Laboratory test 10/16/2018 [facility] Erythrocyte Sed 15 mm/Hr Normal 0-19 [address] [place] [address] [phone] 1 Object Oriented Programmer: [id number] 2 RIGHT FOOT 3 SEE RESULT BELOW Name: TARUN MORRISON : [address]: Raivn Damon MD Acct: [id number] Unit: [id number] AGE: 68 Location: OR Re10/22/18 SEX: M Status: REG SDC SPEC: [id number] GINETTE: 10/22/18 [facility] DR: Ravin Damon MD REQ: [id number] RECD: 10/22/184280 STATUS: RES OT DR: Jah Palm MD _ SOURCE: WOUND SPDESC: ORDERED: Anaerobic Cult, Culture Stain COMMENTS: RIGHT FOOT Procedure Result Reported Site Anaerobic Culture PENDING Wound/Misc Gram Stain Final 10/22/18- 1511 ML 1+ Epithelial Cells 1+ Neutrophils 1+ Gram Positive Cocci Wound/Misc Culture PENDING * ML - Main Lab . END OF REPORT DEPARTMENT OF PATHOLOGY, [address] [place] [address] Moncho Talbot M.D. Director [facility] # [id number] 4 SEE RESULT BELOW Name: TARUN MORRISON : [address]: Ravin Damon MD Acct: [id number] Unit: [id number] AGE: 68 Location: OR Re10/22/18 SEX: M Status: REG SDC SPEC: [id number] GINETTE: 10/22/18-[address]: Ravin Damon MD REQ: [id number] RECD: 10/22/18 STATUS: VALERIA FONSECA DR: Jah Palm MD _ SOURCE: WOUND SPDESC: ORDERED: Anaerobic Cult, Culture Stain COMMENTS: RIGHT FOOT Procedure Result Reported Site Anaerobic Culture Final 10/26/18- 957 ML No Growth Day 4 Wound/Misc Gram Stain Final 10/22/18- 151 ML 1+ Epithelial Cells 1+ Neutrophils 1+ Gram Positive Cocci Wound/Misc Culture Final 10/26/18957 ML Organism 1 ENTEROCOCCUS FAECIUM Quantity 1+ [...] CONTINUED ON NEXT PAGE DEPARTMENT OF PATHOLOGY, [address] [place] [address] Moncho Talbot M.D. Director [facility] # [id number] Specimen: [id number] Collected: 10/22/18 Received: 10/22/18-1424 (Continued) Procedure Result Reported Site Wound/Misc Culture Final (continued) * These antibiotics are not available in the [facility] Formulary Contact the Microbiology Department for any additional antibiotic reporting. * ML - Main Lab . END OF REPORT DEPARTMENT OF PATHOLOGY, [address] [place] [address] Moncho Talbot M.D. Director [facility] # [id number] 5 SEE RESULT BELOW Name: TARUN MORRISON : [address]: Ravin Damon MD Acct: [id number] Unit: [id number] AGE: 68 Location: OR Re10/22/18 SEX: M Status: REG SDC SPEC: [id number] GINETTE: 10/22/180095 [facility] DR: Ravin Damon MD REQ: [id number] RECD: 10/22/18597 STATUS: SOUT _ ORDERED: Decal, LEVEL 3 [...] aggregating 7.0 x 4.0 x 1.7 cm. Expansion Joint Finisher sections are submitted in cassettes A and B as follows: A-skin and soft tissue and B-bone following decalcification. Signed by and Reported on: Moncho Talbot MD [id number] END OF REPORT DEPARTMENT OF PATHOLOGY, [address] [place] [address] Moncho Talbot M.D. Director [facility] # [id number] 6 Object Oriented Programmer: [id number] 7 10/22 8 Standard intensity warfarin therapeutic [...] (or dialysis) 11 10/22 12 10/22 Procedures Description No Information Available Medical Devices Description No Information Available Encounters [...] Damon M.D. foot Plan of Treatment Future Appointment(s):11/07/2018 2:45 pm - Ravin Nelson, M.D. at [facility] AT Zsoibnlc87/25/2019 10:30 am - Aman Rinaldi M.D. at [facility]10/31/2018 - Ravin Damon M.D.Z47.89 Encounter for other orthopedic aftercareFollow up:Follow up: 1 weekM86.671 Other chronic osteomyelitis, right ankle and foot Functional Status Description No Information Available Mental Status Description No Information Available Referrals Description No Information Available
--- OUTSIDE RECORDS SUMMARY | 2018-11-21 14:39 | XMS REPORT | Continuity of Care Document ---
:1950 External Reference #:[id number] Author Name Anna Duque M.D. Address [address] [place] [address] Care Team Providers Name Role Phone Jah Palm MD - Family Care Team Information Drapery Counselor [phone] Medicine Problems Active Problems Provider Date Ulcer [...] denies history of smoking Smoking Status Reviewed: 10/17/18 Patient denies history of smoking Allergies, Adverse Reactions, Alerts Description No Known Drug Allergies Medications Active Medications SIG Qnty Indications Ordering Provider Date Cefdinir take one tab by 42caps M86.171 Anna Duque M.D. 10/17/2018 300mg Capsules mouth twice a day x 21 days Flagyl one by mouth 63tabs M86.171 Anna Duque M.D. 10/17/2018 500mg Tablets three times a day x 21 days [facility] per R78.81 Anna Duque M.D. 08/20/2018 protocol M86.171 Aquacel Ag Extra 2" X Apply one to right 1package Renata, 07/12/2018 2"/Hydrofiber first toe amputation Aman Samayoa M.D. 2"X2" Pads site per day, cut so it fits wound, should not touch healthy skin. Ceftriaxone Sodium Unknown Primidone Aman Rinaldi, 50mg Tablets Cabergoline Evan Rankin MD 0.5mg Tablets Metformin HCL Gallo Munoz MD 1000mg Tablets Rosuvastatin Calcium Unknown 40mg Tablets Lisinopril Jah Palm, 2.5mg Tablets Glipizide Jah Palm, 10mg Tablets Fluoxetine HCL Jah Palm, 40mg MD Capsules Zocor 1 po qd 90tabs Unknown 20mg Tablets Aspirin 1 po qd Unknown 81mg Tablets Novolog Mix 70/30 as directed Unknown 70-30% Suspension Levothroid 1 po qd Unknown 100mcg Tablets History Medications Cephalexin 3 Times Daily 30caps Unknown 07/02/2018 - 07/16/2018 500mg Capsules Minocycline HCL 2 Times A Day 20tabs Unknown 07/02/2018 - 07/16/2018 100mg Tablets Immunizations Description No Information Available Vital Signs Date Vital Result Comment 10/17/2018 1:03pm BP Systolic Sitting Left Arm 117 mmHg BP Diastolic Sitting Left Arm 73 mmHg Body Temperature 97.5 F Heart Rate 89 /min Height 65 inches 5'5" Weight 223.00 lb BMI (Body Mass Index) 37.1 kg/m2 BSA (Body Surface Area) 2.07 m2 [place] body weight in kilograms 62 kg 10/03/2018 1:50pm BP Systolic Sitting Left Arm 99 mmHg BP Diastolic Sitting Left Arm 64 mmHg Body Temperature 98.1 F Heart Rate 80 /min Height 65 inches 5'5" Weight 222.00 lb BMI (Body Mass Index) 36.9 kg/m2 BSA (Body Surface Area) 2.07 m2 [place] body weight in kilograms 62 kg Results Test Date Facility Test Result H/L Range Note CBC W/Auto 10/15/2018 [facility] WBC 8.4 K/uL 4.8-10.8 Differential [address] [place], [place] [id number] [phone] RBC 4.30 M/uL Low 4.60-6.20 Hemoglobin 12.7 [...] 5.7 K/uL 1.8-8.6 Lymph# 1.9 K/uL 0.5-5.0 [place]# 0.6 K/uL 0.0-1.3 Eos# 0.1 K/uL 0.0-0.9 Baso# 0.1 K/ul 0.0-0.3 Laboratory test 10/15/2018 [facility] C Reactive 4.0 mg/L <=5.0 finding 17 [facility] [place] [address] [phone] Comprehensive Panel 10/15/2018 [facility] Sodium 142 136-145 17 [facility] mmol/[place] [address] [phone] Potassium 4.3 mmol/L 3.5-5.2 Chloride 105 mmol/L [...] U/L High 5-37 CBC W/No Diff 10/08/2018 [facility] WBC 6.0 K/uL 4.8-10.[address] [place] [address] [phone] RBC 4.21 M/uL Low 4.60-6.20 Hemoglobin 11.9 gm/dL Low 13.5-18.0 Hematocrit 38.1 % Low 41.0-53.0 MCV 90.6 fL 80.0-100.0 MCHC 31.3 % 30.0-36.5 MCH 28.4 pg 27.0-34.0 RDW 14.5 % 11.0-15.0 Platelet 281 K/uL 130-450 MPV 6.9 fL 6.0-12.0 Laboratory test 10/08/2018 [facility] C Reactive 4.0 mg/L <=5.[address] [place] [address] Protein [place], [place] [phone] Comprehensive Panel 10/08/2018 [facility] Sodium 140 136-[address] [place] [address] mmol/[place] [address] [phone] Potassium 4.8 mmol/L 3.5-5.2 Chloride 105 mmol/L [...] (Sgot) 33 U/L 5-37 Comprehensive Panel 09/26/2018 [facility] Sodium 139 mmol/L 136-[address] [place] [address] [phone] Potassium 4.5 mmol/L 3.5-5.2 Chloride 107 mmol/L [...] 28 U/L 5-37 CBC W/Auto Differential 09/26/2018 [facility] WBC 6.2 K/uL 4.8-10.[address] [place] [address] [phone] RBC 3.99 M/uL Low 4.60-6.20 Hemoglobin 11.8 [...] 4.2 K/uL 1.8-8.6 Lymph# 1.3 K/uL 0.5-5.0 [place]# 0.6 K/uL 0.0-1.3 Eos# 0.1 K/uL 0.0-0.9 Baso# 0.0 K/ul 0.0-0.3 Laboratory test 09/26/2018 [facility] C Reactive 5.9 mg/L High <=5.0 finding 17 [facility] [place] [address] [phone] Comprehensive 09/19/2018 [facility] Sodium 141 136-145 Panel 17 [facility] mmol/[place] [address] [phone] Potassium 4.5 mmol/L 3.5-5.2 Chloride 109 mmol/L [...] 30 U/L 5-37 CBC W/Auto Differential 09/19/2018 [facility] WBC 9.1 K/uL 4.8-10.[address] [place] [phone] RBC 4.16 M/uL Low 4.60-6.20 Hemoglobin 12.1 [...] 6.3 K/uL 1.8-8.6 Lymph# 1.9 K/uL 0.5-5.0 [place]# 0.8 K/uL 0.0-1.3 Eos# 0.1 K/uL 0.0-0.9 Baso# 0.1 K/ul 0.0-0.3 Laboratory test 09/19/2018 [facility] C Reactive 4.7 mg/L <=5.[address] [place] [address] [place] [address] [phone] Comprehensive Panel 09/12/2018 [facility] Sodium 138 136-[address] [place] [address] mmol/[place] [address] [phone] Potassium 4.8 mmol/L 3.5-5.2 Chloride 102 mmol/L [...] 25 U/L 5-37 CBC W/Auto Differential 09/12/2018 [facility] WBC 7.5 K/uL 4.8-10.[address] [place] [address] [phone] RBC 4.10 M/uL Low 4.60-6.20 Hemoglobin 11.9 [...] 5.4 K/uL 1.8-8.6 Lymph# 1.4 K/uL 0.5-5.0 [place]# 0.5 K/uL 0.0-1.3 Eos# 0.1 K/uL 0.0-0.9 Baso# 0.1 K/ul 0.0-0.3 Laboratory test 09/12/2018 [facility] C Reactive 5.0 mg/L <=5.[address] [place] [address] [place] [address] [phone] CBC W/Auto 09/05/2018 [facility] WBC 8.1 K/uL 4.8-10.[address] [place] [phone] RBC 4.20 M/uL Low 4.60-6.20 Hemoglobin 12.2 [...] 5.8 K/uL 1.8-8.6 Lymph# 1.6 K/uL 0.5-5.0 [place]# 0.6 K/uL 0.0-1.3 Eos# 0.1 K/uL 0.0-0.9 Baso# 0.0 K/ul 0.0-0.3 Laboratory test 09/05/2018 [facility] C Reactive 7.5 mg/L High <=5.0 finding 17 [facility] [place] [address] [phone] Comprehensive 09/05/2018 [facility] Sodium 138 136-[address] [place] [address] mmol/[place] [address] [phone] Potassium 5.1 mmol/L 3.5-5.2 Chloride 105 mmol/L [...] (Sgot) 29 U/L 5-37 Comprehensive Panel 08/29/2018 [facility] Sodium 141 mmol/L 136-[address] [place] [address] [phone] Potassium 4.6 mmol/L 3.5-5.2 Chloride 106 mmol/L [...] 28 U/L 5-37 CBC W/Auto Differential 08/29/2018 [facility] WBC 9.8 K/uL 4.8-10.[address] [place] [address] [phone] RBC 4.19 M/uL Low 4.60-6.20 Hemoglobin 12.5 [...] 6.8 K/uL 1.8-8.6 Lymph# 1.8 K/uL 0.5-5.0 [place]# 0.8 K/uL 0.0-1.3 Eos# 0.3 K/uL 0.0-0.9 Baso# 0.1 K/ul 0.0-0.3 Laboratory test 08/29/2018 [facility] C Reactive 1.7 mg/L <=5.[address] [place] [phone] Laboratory test 08/22/2018 [facility] C Reactive 4.3 mg/L <=5.[address] [place] [phone] CBC W/No Diff 08/22/2018 [facility] WBC 11.2 K/ uL High 4.8-10.[address] [place] [phone] RBC 4.19 M/uL Low 4.60-6.20 Hemoglobin 12.4 gm/dL Low 13.5-18.0 Hematocrit 37.8 % Low 41.0-53.0 MCV 90.4 fL 80.0-100.0 MCHC 32.6 % 30.0-36.5 MCH 29.5 pg 27.0-34.0 RDW 13.9 % 11.0-15.0 Platelet 414 K/uL 130-450 MPV 7.7 fL 6.0-12.0 Comprehensive Panel 08/22/2018 [facility] Sodium 138 mmol/L 136-[address] [place] [address] [phone] Potassium 4.8 mmol/L 3.5-5.2 Chloride 104 mmol/L [...] Penicillin G >=0.5 Resistant 9 [address] [place] [address] [phone] Oxacillin <=0.25 Susceptible Tetracycline <=1 Susceptible Trimethoprim/Sulfamethoxazole <=10 Susceptible Gentamicin <=0.5 Susceptible Erythromycin <=0.25 Susceptible Clindamycin <=0.25 Susceptible Ciprofloxacin <=0.5 Susceptible Moxifloxacin <=0.25 Susceptible Levofloxacin 0.25 Susceptible Vancomycin 1 Susceptible Anaerobic Culture W/ 08/03/2018 [facility] Gram Stain FEW WHITE BLOOD [address] <SEE NOTE> [place] [address] [phone] Gram Stain RARE GRAM NEGATI <SEE NOTE> 11 Gram Stain RARE GRAM POSITI <SEE NOTE> 12 Anaerobic Culture NO ANAEROBES ISO <SEE NOTE> 13 Enterobacter 08/03/2018 [facility] Trimethoprim/Sulfamethoxazole <=[address] [place] [address] [place] [address] [phone] Cefazolin >=64 Resistant Ciprofloxacin <=0.25 Susceptible Piperacillin/Tazobactam <=4 Susceptible Ceftazidime <=1 Susceptible Ceftriaxone <=1 Susceptible Cefepime <=1 Susceptible Levofloxacin <=0.12 Susceptible Imipenem <=0.25 Susceptible Gentamicin <=1 Susceptible Tobramycin <=1 Susceptible Routine Culture W/ 08/03/2018 [facility] Gram Stain FEW WHITE BLOOD 14 Gram Stain [address] <SEE NOTE> [place] [address] [phone] Gram Stain RARE GRAM POSITI <SEE NOTE> 15 Gram Stain RARE GRAM NEGATI <SEE NOTE> 16 Aerobic Culture ENTEROBACTER SHILA <SEE NOTE> Abnormal 17 Quantity FEW Aerobic Culture STAPHYLOCOCCUS A <SEE NOTE> Abnormal 18 Quantity FEW Comprehensive Metabolic 08/02/2018 [facility] Glucose 64 mg/dL Low 74-[address] [place] [address] [phone] BUN 11 mg/dL Normal 7-18 Creatinine 0.7 [...] 52 U/L Normal 45-117 CBC W/Automated 08/02/2018 [facility] White Blood 10.2 K/uL Normal 3.4-10.[address] Count [place], [place] [phone] Red Blood Count 3.65 M/uL Low 4.20-5.80 [...] 33.0-73.0 Lymph % 18.2 % Low 20.0-42.0 [place] % 8.6 % Normal 0.0-10.0 Eo% 2.9 % Normal 0.0-6.6 Bas% 0.8 % Normal 0.0-1.1 Immature Grans 1.3 % Normal 0.0-5.0 NRBC % 0.0 /100WBC < 10/ 100 WBC Neut# 6.97 K/uL Normal 1.8-7.0 Lymph # 1.86 K/uL Normal 1.0-4.0 [place] # 0.88 K/uL High 0.0-0.8 Eos # 0.30 K/uL Normal 0.0-0.5 Baso # 0.08 K/uL Normal 0.0-0.1 Immature Grans Absolute 0.13 K/uL NRBC # 0.00 K/uL Laboratory 08/02/2018 [facility] C-Reactive 123.0 mg/L High <3.0 test finding [address] Protein,Quant [place], [place] [id number] [phone] Blood Culture 07/30/2018 [facility] Gram Stain GRAM Abnormal 21, [address] POSITIVE 22 [place] [address] CO <SEE [phone] NOTE> Blood Culture Aerobic STAPHYLOCOCCUS A <SEE NOTE> Abnormal 23 Quantity FROM BROTH Gram Stain GRAM POSITIVE CO <SEE NOTE> Abnormal 24 Blood Culture Anaerobic STAPHYLOCOCCUS A <SEE NOTE> Abnormal 25 Quantity FROM BROTH Blood Culture 07/30/2018 [facility] Blood Culture NO GROWTH: FINAL [address] Aerobic <SEE NOTE> [place], [place] [address] [phone] Blood Culture Anaerobic NO GROWTH: FINAL <SEE NOTE> 27 Comprehensive Metabolic 07/30/2018 [facility] Glucose 173 mg/dL High 74-[address] [place] [address] [phone] BUN 12 mg/dL Normal 7-18 Creatinine 0.9 [...] Phosphatase 59 U/L Normal 45-117 [id number] 07/30/2018 [facility] Penicillin G >=0.[address] [place] [address] [phone] Oxacillin 0.5 Susceptible Tetracycline <=1 Susceptible Trimethoprim/Sulfamethoxazole <=10 Susceptible Gentamicin <=0.5 Susceptible Erythromycin <=0.25 Susceptible Clindamycin <=0.25 Susceptible Ciprofloxacin <=0.5 Susceptible Moxifloxacin <=0.25 Susceptible Levofloxacin 0.25 Susceptible Vancomycin <=0.5 Susceptible Laboratory test 07/30/2018 [facility] C-Reactive 125.0 High <3.[address] Protein,Quant mg/[place] [address] [phone] CBC W/Automated 07/30/2018 [facility] White Blood Count 13.5 K/uL High 3.4- 10.[address] [place] [address] [phone] Red Blood Count 4.01 M/uL Low 4.20-5.80 [...] 33.0-73.0 Lymph % 15.1 % Low 20.0-42.0 [place] % 7.5 % Normal 0.0-10.0 Eo% 1.7 % Normal 0.0-6.6 Bas% 0.6 % Normal 0.0-1.1 Immature Grans 1.4 % Normal 0.0-5.0 NRBC % 0.0 /100WBC < 10/ 100 WBC Neut# 9.96 K/uL High 1.8-7.0 Lymph # 2.04 K/uL Normal 1.0-4.0 [place] # 1.02 K/uL High 0.0-0.8 Eos # [...] 3.4-10.5 [address] K/[place] [address] [phone] Red Blood Count 4.04 M/uL Low 4.20-5.80 [...] 33.0-73.0 Lymph % 19.7 % Low 20.0-42.0 [place] % 5.7 % Normal 0.0-10.0 Eo% 1.9 % Normal 0.0-6.6 Bas% 0.9 % Normal 0.0-1.1 Immature Grans 3.9 % Normal 0.0-5.0 NRBC % 0.0 /100WBC < 10/ 100 WBC Neut# 9.46 K/uL High 1.8-7.0 Lymph # 2.75 K/uL Normal 1.0-4.0 [place] # 0.80 K/uL Normal 0.0-0.8 Eos # [...] aminotransferase measureme measurement (enzymatic activity/volume) Comprehensive 07/05/2018 [facility] Glucose 172 High 74-10 Metabolic Panel [address] mg/dL 6 [place] [address] [phone] BUN 20 mg/dL High 7-18 Creatinine 1.1 [...] estimation from glycated hemoglobin (mass/volume) CBC 06/27/2018 [facility] White Blood Count 11.8 K/uL High 3.4-10.5 [address] [place] [address] [phone] Red Blood Count 4.02 M/uL Low 4.20-5.80 [...] < 10/ 100 WBC Aot Request 06/26/2018 [facility] Aot Request Test(s) added 31 [address] [place] [address] [phone] Tests to be added: crp, esr * Miscellaneous 06/26/2018 N2N/CCD Import * Miscellaneous Test(s) studies (set) studies (set) added Automated 06/26/2018 N2N/CCD Import Automated 111 High 2-45 erythrocyte erythrocyte sedimentation rate sedimentation rate (Esr) (Esr) Anaerobic Culture 2018 [facility] Gram Stain MANY GRAM 32 W/ GR Stain [address] POSITI <[place] [address] NOTE> [phone] Gram Stain MANY GRAM NEGATI <SEE NOTE> 33 Gram Stain RARE WHITE BLOOD <SEE NOTE> 34 Anaerobic Culture NO ANAEROBES ISO <SEE NOTE> 35 Routine Culture W/ 2018 [facility] Gram Stain MANY GRAM POSITI 36 Gram Stain [address] <SEE NOTE> [place] [address] [phone] Gram Stain MODERATE GRAM NE <SEE NOTE> 37 Gram Stain RARE WHITE BLOOD <SEE NOTE> 38 Aerobic Culture STAPHYLOCOCCUS A <SEE NOTE> Abnormal 39 Quantity MODERATE Aerobic Culture ENTEROCOCCUS JOHN <SEE NOTE> Abnormal 40 Quantity MODERATE Staphylococcus Aureus 2018 [facility] Penicillin G >=0.[address] [place], [place] [address] [phone] Oxacillin 0.5 Susceptible Tetracycline <=1 Susceptible Trimethoprim/Sulfamethoxazole <=10 Susceptible Gentamicin <=0.5 Susceptible Erythromycin <=0.25 Susceptible Clindamycin <=0.25 Susceptible Ciprofloxacin <=0.5 Susceptible Moxifloxacin <=0.25 Susceptible Levofloxacin 0.25 Susceptible Vancomycin <=0.5 Susceptible Enterococcus Avium 2018 [facility] Penicillin G 0.25 Susceptible [address] [place], [place] 0[address] [phone] Tetracycline <=1 Susceptible Ampicillin <=2 Susceptible Erythromycin [...] AVIUM Procedures Date Code Description Status 08/03/2018 27435 Debridement subcutaneous tissue muscle bone Completed 06/29/2018 76303 Amputation, toe, interphalangeal joint Completed 2018 26927 Debridement:Skin, And Subcutaneous Tissue Completed Medical Devices Description No Information Available Encounters Type Date Location Provider Dx Diagnosis Office Visit 10/17/2018 Physical Medicine Anna Duque M86.171 Other acute 1:00p & Infectious M.D. osteomyelitis, Disease right ankle [...] failure, unspecified Office Visit 2018 Operating Room Bonny Yanez03.115 Cellulitis of 2:50p Aman H., right lower limb M.D. E11.621 Type 2 diabetes mellitus with foot ulcer Assessments Date Code Description Provider 10/17/2018 M86.171 Other acute osteomyelitis, right Anna [...] M86.171 Other acute osteomyelitis, right Jenae Burns PA ankle and foot 08/07/2018 R78.81 Bacteremia Anna [...] M86.171 Other acute osteomyelitis, right Jenae Burns PA ankle and foot 07/05/2018 R74.0 Nonspecific elevation of levels of MeAnna layton M.D. transaminase and lactic acid dehydrogenase [LDH] 07/05/2018 E11.621 Type 2 diabetes mellitus with foot Roder, Brenda, [employer] ulcer 07/05/2018 M86.171 Other acute osteomyelitis, right MeAnna layton M.D. ankle and foot 07/05/2018 A41.9 Sepsis, unspecified organism RoderIrisBrenda, [employer] 07/05/2018 M86.171 Other acute osteomyelitis, right RoderBrenda, [employer] ankle and foot 07/05/2018 E11.65 Type 2 diabetes mellitus with RoderBrenda, [employer] hyperglycemia 07/05/2018 A41.01 Sepsis due to Methicillin Anna Duque, M.D. susceptible Staphylococcus aureus 07/05/2018 B96.89 Other specified bacterial agents as MeAnna layton M.D. the cause of diseases classified elsewhere 07/04/2018 R74.0 Nonspecific elevation of levels of Mezu, Anna, M.D. transaminase and lactic acid dehydrogenase [LDH] 07/04/2018 E11.621 Type 2 diabetes mellitus with foot RoderBrenda, [employer] ulcer 07/04/2018 M86.171 Other acute osteomyelitis, right Anna Duque M.D. ankle and foot 07/04/2018 A41.01 Sepsis due to Methicillin Anna Duque, M.D. susceptible Staphylococcus aureus 07/04/2018 A41.9 Sepsis, unspecified organism LindenerBrenda, [employer] 07/04/2018 B96.89 Other specified bacterial agents as MeRay laytonozi, M.D. the cause of diseases classified elsewhere 07/04/2018 M86.171 Other acute osteomyelitis, right RoderBrenda, [employer] ankle and foot 07/04/2018 E11.65 Type 2 diabetes mellitus with Roder, Brenda, [employer] hyperglycemia 07/03/2018 R74.0 Nonspecific elevation of levels of Mezu, Anna, M.D. transaminase and lactic acid dehydrogenase [LDH] 07/03/2018 E11.621 Type 2 diabetes mellitus with foot Roder, Brenda, [employer] ulcer 07/03/2018 M86.171 Other acute osteomyelitis, right Anna Duque M.D. ankle and foot 07/03/2018 A41.01 Sepsis due to Methicillin Anna Duque M.D. susceptible Staphylococcus aureus 07/03/2018 A41.9 Sepsis, unspecified organism Roder, Brenda, [employer] 07/03/2018 B96.89 Other specified bacterial agents as Anna Duque M.D. the cause of diseases classified elsewhere 07/03/2018 M86.171 Other acute osteomyelitis, right Roder, Brenda, [employer] ankle and foot 07/03/2018 E11.65 Type 2 diabetes mellitus with Roder, Brenda, [employer] hyperglycemia 07/02/2018 E11.621 Type 2 diabetes mellitus with foot Roder, Brenda, [employer] ulcer 07/02/2018 A41.9 Sepsis, unspecified organism Roder, Brenda, [employer] 07/02/2018 M86.171 Other acute osteomyelitis, right Roder, Brenda, [employer] ankle and foot 07/02/2018 E11.65 Type 2 diabetes mellitus with Roder, Brenda, [employer] hyperglycemia 07/01/2018 E11.621 Type 2 diabetes mellitus with foot Cadet, Juan F, REPORTING LEAD ulcer 07/01/2018 L03.115 Cellulitis of right lower limb Cadet, Juan F, REPORTING LEAD 07/01/2018 A41.9 Sepsis, unspecified organism Cadet, Juan F, REPORTING LEAD 07/01/2018 M86.171 Other acute osteomyelitis, right Cadet, Juan F, REPORTING LEAD ankle and foot 06/30/2018 E11.621 Type 2 diabetes mellitus with foot Cadet, Juan F, REPORTING LEAD ulcer 06/30/2018 L03.115 Cellulitis of right lower limb Cadet, Juan F, REPORTING LEAD 06/30/2018 A41.9 Sepsis, unspecified organism Cadet, Juan F, REPORTING LEAD 06/30/2018 M86.171 Other acute osteomyelitis, right Cadet, Juan F, REPORTING LEAD ankle and foot 06/29/2018 R74.0 Nonspecific elevation of levels of Anna Duque M.D. transaminase and lactic acid dehydrogenase [LDH] 06/29/2018 E11.621 Type 2 diabetes mellitus with foot Cadet, Juan F, REPORTING LEAD ulcer 06/29/2018 M86.171 Other acute osteomyelitis, right Anna Duque M.D. ankle and foot 06/29/2018 L03.115 Cellulitis of right lower limb Cadet, Juan F, REPORTING LEAD 06/29/2018 M86.271 Subacute osteomyelitis, right ankle Aman Yanez M.D. and foot 06/29/2018 A41.01 Sepsis due to Methicillin Anna Duque M.D. susceptible Staphylococcus aureus 06/29/2018 B96.89 Other specified bacterial agents as Anna Duque M.D. the cause of diseases classified elsewhere 06/29/2018 A41.9 Sepsis, unspecified organism Cadet, Juan F, REPORTING LEAD 06/29/2018 M86.171 Other acute osteomyelitis, right Cadet, Juan F, REPORTING LEAD ankle and foot 06/28/2018 R74.0 Nonspecific elevation of levels of Anna Duque M.D. transaminase and lactic acid dehydrogenase [LDH] 06/28/2018 E11.621 Type 2 diabetes mellitus with foot Cadet, Juan F, REPORTING LEAD ulcer 06/28/2018 L03.115 Cellulitis of right lower limb Cadet, Juan F, REPORTING LEAD 06/28/2018 M86.171 Other acute osteomyelitis, right Anna Duque M.D. ankle and foot 06/28/2018 A41.01 Sepsis due to Methicillin Anna Duque M.D. susceptible Staphylococcus aureus 06/28/2018 B96.89 Other specified bacterial agents as Anna Duque M.D. the cause of diseases classified elsewhere 06/28/2018 A41.9 Sepsis, unspecified organism Cadet, Juan F, REPORTING LEAD 06/28/2018 M86.171 Other acute osteomyelitis, right Cadet, Juan F, REPORTING LEAD ankle and foot 06/27/2018 E11.621 Type 2 diabetes mellitus with foot Cadet, Juan F, REPORTING LEAD ulcer 06/27/2018 L03.115 Cellulitis of right lower limb Cadet, Juan F, REPORTING LEAD 06/27/2018 A41.9 Sepsis, unspecified organism Cadet, Juan F, REPORTING LEAD 06/27/2018 M86.171 Other acute osteomyelitis, right Cadet, Juan F, REPORTING LEAD ankle and foot 06/26/2018 E11.621 Type 2 diabetes mellitus with foot Juan F Vizcaino FNP ulcer 06/26/2018 R74.0 Nonspecific elevation of levels of Anna Duque M.D. transaminase and lactic acid dehydrogenase [LDH] 06/26/2018 M86.171 Other acute osteomyelitis, right Anna Duque M.D. ankle and foot 06/26/2018 L03.115 Cellulitis of right lower limb Juan F Vizcaino REPORTING LEAD 06/26/2018 A41.9 Sepsis, unspecified organism Anna Duque M.D. 06/26/2018 D72.829 Elevated white blood cell count, Juan F Vizcaino FNP unspecified 06/26/2018 E11.621 Type 2 diabetes mellitus with foot Anna Duque M.D. ulcer 06/26/2018 A41.9 Sepsis, unspecified organism Juan F Vizcaino REPORTING LEAD 2018 E11.621 Type 2 diabetes mellitus with foot Juan F Vizcaino, REPORTING LEAD ulcer 2018 L03.115 Cellulitis of right lower limb Aman Yanez M.D. 2018 E11.621 Type 2 diabetes mellitus with foot Aman Yanez M.D. ulcer 2018 L03.115 Cellulitis of right lower limb Juan F Vizcaino, REPORTING LEAD 2018 D72.829 Elevated white blood cell count, Juan F Vizcaino FNP unspecified 2018 R74.0 Nonspecific elevation of levels of Juan F Vizcaino FNP transaminase and lactic acid dehydrogenase [LDH] 06/24/2018 E11.621 Type 2 diabetes mellitus with foot Gallo Teague MD ulcer 06/24/2018 L03.115 Cellulitis of right lower limb Gallo Teague MD 06/24/2018 D72.829 Elevated white blood cell count, Gallo Teague MD unspecified 06/24/2018 N17.9 Acute kidney failure, unspecified Gallo Teague MD Plan of Treatment Future Appointment(s):10/31/2018 3:00 pm - Anna Duque M.D. at Physical Medicine [facility] Dyvjnrj4711/07/2018 9:00 am - Jp Moore DPM at Podiatry Gdsztn3408/23/2018 - Jenae Burns, PAM86.171 Other acute osteomyelitis, right ankle and foot Functional Status Description No Information Available Mental Status Description No Information Available Referrals Refer to Dr Reason for Referral Status Appt Date Ravin Damon M.D. Need for further debridement vs Patient Notified amputation. Patient has been on IV Abx since hospitalization in August 07, 2018. Repeat MRI ordered. [address] [place] [address] [phone] Ravin Damon M.D. Closed [address] [place] [address] [phone] Chayo Hale, BETHANY Right 1st toe amputation performed by Dr. Berg 08/2018 Renata on 06/29. [facility] [address] [place] [phone]
--- OUTSIDE RECORDS SUMMARY | 2018-11-21 14:39 | XMS REPORT | Continuity of Care Document ---
:1950 External Reference #:[id number] Author Name Anna Duque M.D. Address [address] [place] [address] Care Team Providers Name Role Phone Jah Palm MD - Family Care Team Information Label Paster [phone] Medicine Problems Active Problems Provider Date Ulcer [...] denies history of smoking Smoking Status Reviewed: 10/03/18 Patient denies history of smoking Allergies, Adverse Reactions, Alerts Description No Known Drug Allergies Medications Active Medications SIG Qnty Indications Ordering Provider Date Home Care Agency [facility] per R78.81 Anna Duque M.D. 08/20/2018 protocol M86.171 Aquacel Ag Extra 2" X Apply one to right 1package Renata, 07/12/2018 2"/Hydrofiber first toe amputation Aman Samayoa M.D. 2"X2" Pads site per day, cut so it fits wound, should not touch healthy skin. Levothroid 1 po qd Unknown 100mcg Tablets Novolog Mix 70/30 as directed Unknown 70-30% Suspension Aspirin 1 po qd Unknown 81mg Tablets Zocor 1 po qd 90tabs Unknown 20mg Tablets Fluoxetine HCL Jah Plam, 40mg MD Capsules Glipizide Jah Palm, 10mg Tablets Lisinopril Jah Palm, 2.5mg Tablets Rosuvastatin Calcium Unknown 40mg Tablets Metformin HCL Gallo Munoz MD 1000mg Tablets Cabergoline Evan Rankin MD 0.5mg Tablets Primidone Aman Rinaldi, 50mg Tablets Ceftriaxone Sodium Unknown History Medications Cephalexin 3 Times Daily 30caps Unknown 07/02/2018 - 07/16/2018 500mg Capsules Minocycline HCL 2 Times A Day 20tabs Unknown 07/02/2018 - 07/16/2018 100mg Tablets Immunizations Description No Information Available Vital Signs Date Vital Result Comment 10/03/2018 1:50pm BP Systolic Sitting Left Arm 99 mmHg BP Diastolic Sitting Left Arm 64 mmHg Body Temperature 98.1 F Heart Rate 80 /min Height 65 inches 5'5" Weight 222.00 lb BMI (Body Mass Index) 36.9 kg/m2 BSA (Body Surface Area) 2.07 m2 Taylor body weight in kilograms 62 kg 09/12/2018 1:04pm BP Systolic Sitting Left Arm 122 mmHg BP Diastolic Sitting Left Arm 71 mmHg Body Temperature 97.2 F Heart Rate 97 /min Weight 223.00 lb O2 % BldC Oximetry 99 % ra Results Test Date Facility Test Result H/L Range Note Comprehensive Panel 09/26/2018 [facility] Sodium 139 mmol/L 136-145 [address] [place] [address] [phone] Potassium 4.5 mmol/L 3.5-5.2 Chloride 107 mmol/L 100-108 Co2 25 mmol/L 21-32 Glucose 102 mg/dL High 70-100 BUN 15 mg/dL 7-21 Creatinine 0.7 mg/dL 0.6-1.3 1 Calcium 8.6 mg/dL 8.5-10.8 GFR >60 T Bili 0.5 mg/dL 0.0-1.2 T Protein 5.8 gm/dL Low 6.4-8.2 Albumin 3.9 gm/dL 3.2-4.6 Alk Phos 47 U/L 40-150 Alt (SGPT) 28 U/L 0-55 Ast (Sgot) 28 U/L 5-37 CBC W/Auto Differential 09/26/2018 [facility] WBC 6.2 K/uL 4.8-10.8 [address] [place] [address] [phone] RBC 3.99 M/uL Low 4.60-6.20 Hemoglobin 11.8 [...] 4.2 K/uL 1.8-8.6 Lymph# 1.3 K/uL 0.5-5.0 [facility]# 0.6 K/uL 0.0-1.3 Eos# 0.1 K/uL 0.0-0.9 Baso# 0.0 K/ul 0.0-0.3 Laboratory test 09/26/2018 [facility] C Reactive 5.9 mg/L High <=5.0 finding [address] [facility] [place] [address] [phone] Comprehensive 09/19/2018 [facility] Sodium 141 136-145 Panel [address] [facility] mmol/[place] [address] [phone] Potassium 4.5 mmol/L 3.5-5.2 Chloride 109 mmol/L High 100-108 Co2 24 mmol/L 21-32 Glucose 46 mg/dL Low 70-100 BUN 14 mg/dL 7-21 Creatinine 0.8 mg/dL 0.6-1.3 2 Calcium 9.5 mg/dL 8.5-10.8 GFR >60 T Bili 0.4 mg/dL 0.0-1.2 T Protein 6.4 gm/dL 6.4-8.2 Albumin 4.1 gm/dL 3.2-4.6 Alk Phos 53 U/L 40-150 Alt (SGPT) 28 U/L 0-55 Ast (Sgot) 30 U/L 5-37 CBC W/Auto Differential 09/19/2018 [facility] WBC 9.1 K/uL 4.8-10.[address] [place] [address] [phone] RBC 4.16 M/uL Low 4.60-6.20 Hemoglobin 12.1 [...] 6.3 K/uL 1.8-8.6 Lymph# 1.9 K/uL 0.5-5.0 [facility]# 0.8 K/uL 0.0-1.3 Eos# 0.1 K/uL 0.0-0.9 Baso# 0.1 K/ul 0.0-0.3 Laboratory test 09/19/2018 [facility] C Reactive 4.7 mg/L <=5.[address] [place] [address] [place] [address] [phone] Comprehensive Panel 09/12/2018 [facility] Sodium 138 136-145 17 [facility] mmol/[place] [address] [phone] Potassium 4.8 mmol/L 3.5-5.2 Chloride 102 mmol/L 100-108 Co2 27 mmol/L 21-32 Glucose 122 mg/dL High 70-100 BUN 17 mg/dL 7-21 Creatinine 0.7 mg/dL 0.6-1.3 3 Calcium 9.2 mg/dL 8.5-10.8 GFR >60 T Bili 0.3 mg/dL 0.0-1.2 T Protein 6.1 gm/dL Low 6.4-8.2 Albumin 3.9 gm/dL 3.2-4.6 Alk Phos 48 U/L 40-150 Alt (SGPT) 25 U/L 0-55 Ast (Sgot) 25 U/L 5-37 CBC W/Auto Differential 09/12/2018 [facility] WBC 7.5 K/uL 4.8-10.[address] [place] [address] [phone] RBC 4.10 M/uL Low 4.60-6.20 Hemoglobin 11.9 [...] 5.4 K/uL 1.8-8.6 Lymph# 1.4 K/uL 0.5-5.0 [facility]# 0.5 K/uL 0.0-1.3 Eos# 0.1 K/uL 0.0-0.9 Baso# 0.1 K/ul 0.0-0.3 Laboratory test 09/12/2018 [facility] C Reactive 5.0 mg/L <=5.[address] [place] [address] [phone] CBC W/Auto 09/05/2018 [facility] WBC 8.1 K/uL 4.8-10.[address] [place] [address] [phone] RBC 4.20 M/uL Low 4.60-6.20 Hemoglobin 12.2 [...] 5.8 K/uL 1.8-8.6 Lymph# 1.6 K/uL 0.5-5.0 [facility]# 0.6 K/uL 0.0-1.3 Eos# 0.1 K/uL 0.0-0.9 Baso# 0.0 K/ul 0.0-0.3 Laboratory test 09/05/2018 [facility] C Reactive 7.5 mg/L High <=5.0 finding [address] [facility] [place] [address] [phone] Comprehensive 09/05/2018 [facility] Sodium 138 136-[address] [place] [address] mmol/[place] [address] [phone] Potassium 5.1 mmol/L 3.5-5.2 Chloride 105 mmol/L 100-108 Co2 26 mmol/L 21-32 Glucose 115 mg/dL High 70-100 BUN 14 mg/dL 7-21 Creatinine 0.7 mg/dL 0.6-1.3 4 Calcium 9.1 mg/dL 8.5-10.8 GFR >60 T Bili 0.7 mg/dL 0.0-1.2 T Protein 6.0 gm/dL Low 6.4-8.2 Albumin 3.9 gm/dL 3.2-4.6 Alk Phos 47 U/L 40-150 Alt (SGPT) 30 U/L 0-55 Ast (Sgot) 29 U/L 5-37 Comprehensive Panel 08/29/2018 [facility] Sodium 141 mmol/L 136-[address] [place] [address] [phone] Potassium 4.6 mmol/L 3.5-5.2 Chloride 106 mmol/L 100-108 Co2 27 mmol/L 21-32 Glucose 86 mg/dL 70-100 BUN 14 mg/dL 7-21 Creatinine 0.8 mg/dL 0.6-1.3 5 Calcium 9.3 mg/dL 8.5-10.8 GFR >60 T Bili 0.3 mg/dL 0.0-1.2 T Protein 6.1 gm/dL Low 6.4-8.2 Albumin 3.8 gm/dL 3.2-4.6 Alk Phos 40 U/L 40-150 Alt (SGPT) 26 U/L 0-55 Ast (Sgot) 28 U/L 5-37 CBC W/Auto Differential 08/29/2018 [facility] WBC 9.8 K/uL 4.8-10.[address] [place] [address] [phone] RBC 4.19 M/uL Low 4.60-6.20 Hemoglobin 12.5 [...] 6.8 K/uL 1.8-8.6 Lymph# 1.8 K/uL 0.5-5.0 [facility]# 0.8 K/uL 0.0-1.3 Eos# 0.3 K/uL 0.0-0.9 Baso# 0.1 K/ul 0.0-0.3 Laboratory test 08/29/2018 [facility] C Reactive 1.7 mg/L <=5.[address] [place] [address] [phone] Laboratory test 08/22/2018 [facility] C Reactive 4.3 mg/L <=5.[address] [place] [address] [place] [address] [phone] CBC W/No Diff 08/22/2018 [facility] WBC 11.2 K/ uL High 4.8-10.[address] [place] [address] [phone] RBC 4.19 M/uL Low 4.60-6.20 Hemoglobin 12.4 gm/dL Low 13.5-18.0 Hematocrit 37.8 % Low 41.0-53.0 MCV 90.4 fL 80.0-100.0 MCHC 32.6 % 30.0-36.5 MCH 29.5 pg 27.0-34.0 RDW 13.9 % 11.0-15.0 Platelet 414 K/uL 130-450 MPV 7.7 fL 6.0-12.0 Comprehensive Panel 08/22/2018 [facility] Sodium 138 mmol/L 136-[address] [place] [address] [phone] Potassium 4.8 mmol/L 3.5-5.2 Chloride 104 mmol/L 100-108 Co2 27 mmol/L 21-32 Glucose 82 mg/dL 70-100 BUN 14 mg/dL 7-21 Creatinine 0.8 mg/dL 0.6-1.3 6 Calcium 9.7 mg/dL 8.5-10.8 GFR >60 T Bili 0.2 mg/dL 0.0-1.2 T Protein 6.1 gm/dL Low 6.4-8.2 Albumin 3.8 gm/dL 3.2-4.6 Alk Phos 52 U/L 40-150 Alt (SGPT) 22 U/L 0-55 Ast (Sgot) 28 U/L 5-37 Staphylococcus Aureus 08/03/2018 [facility] Penicillin G >=0.5 Resistant 7 [address] [place] [address] [phone] Oxacillin <=0.25 Susceptible Tetracycline <=1 Susceptible Trimethoprim/Sulfamethoxazole <=10 Susceptible Gentamicin <=0.5 Susceptible Erythromycin <=0.25 Susceptible Clindamycin <=0.25 Susceptible Ciprofloxacin <=0.5 Susceptible Moxifloxacin <=0.25 Susceptible Levofloxacin 0.25 Susceptible Vancomycin 1 Susceptible Anaerobic Culture W/ 08/03/2018 [facility] Gram Stain FEW WHITE BLOOD [address] <SEE NOTE> [place] [address] [phone] Gram Stain RARE GRAM NEGATI <SEE NOTE> 9 Gram Stain RARE GRAM POSITI <SEE NOTE> 10 Anaerobic Culture NO ANAEROBES ISO <SEE NOTE> 11 Enterobacter 08/03/2018 [facility] Trimethoprim/Sulfamethoxazole <=[address] [place] [address] [place] [place] [address] [phone] Cefazolin >=64 Resistant Ciprofloxacin <=0.25 Susceptible Piperacillin/Tazobactam <=4 Susceptible Ceftazidime <=1 Susceptible Ceftriaxone <=1 Susceptible Cefepime <=1 Susceptible Levofloxacin <=0.12 Susceptible Imipenem <=0.25 Susceptible Gentamicin <=1 Susceptible Tobramycin <=1 Susceptible Routine Culture W/ 08/03/2018 [facility] Gram Stain FEW WHITE BLOOD 12 Gram Stain [address] <SEE NOTE> [place] [address] [phone] Gram Stain RARE GRAM POSITI <SEE NOTE> 13 Gram Stain RARE GRAM NEGATI <SEE NOTE> 14 Aerobic Culture ENTEROBACTER SHILA <SEE NOTE> Abnormal 15 Quantity FEW Aerobic Culture STAPHYLOCOCCUS A <SEE NOTE> Abnormal 16 Quantity FEW Comprehensive Metabolic 08/02/2018 [facility] Glucose 64 mg/dL Low 74-106 [address] [place] [address] [phone] BUN 11 mg/dL Normal 7-18 Creatinine 0.7 mg/dL Normal 0.6-1.3 Glom Filtration Rate, Estimate >60 mL/min >60 If >60 mL/min >60 18 BUN/Creat 15.7 ratio Sodium 136 mmol/L Normal [...] 52 U/L Normal 45-117 CBC W/Automated 08/02/2018 [facility] White Blood 10.2 K/uL Normal 3.4-10.[address] [place] [place] [address] [phone] Red Blood Count 3.65 M/uL Low 4.20-5.80 [...] 33.0-73.0 Lymph % 18.2 % Low 20.0-42.0 [facility] % 8.6 % Normal 0.0-10.0 Eo% 2.9 % Normal 0.0-6.6 Bas% 0.8 % Normal 0.0-1.1 Immature Grans 1.3 % Normal 0.0-5.0 NRBC % 0.0 /100WBC < 10/ 100 WBC Neut# 6.97 K/uL Normal 1.8-7.0 Lymph # 1.86 K/uL Normal 1.0-4.0 [facility] # 0.88 K/uL High 0.0-0.8 Eos # 0.30 K/uL Normal 0.0-0.5 Baso # 0.08 K/uL Normal 0.0-0.1 Immature Grans Absolute 0.13 K/uL NRBC # 0.00 K/uL Laboratory 08/02/2018 [facility] C-Reactive 123.0 mg/L High <3.0 test finding [address] Protein,[place] [address] [phone] Blood Culture 07/30/2018 [facility] Gram Stain GRAM Abnormal 19, [address] POSITIVE [address] [place] [address] CO <SEE [phone] NOTE> Blood Culture Aerobic STAPHYLOCOCCUS A <SEE NOTE> Abnormal 21 Quantity FROM BROTH Gram Stain GRAM POSITIVE CO <SEE NOTE> Abnormal 22 Blood Culture Anaerobic STAPHYLOCOCCUS A <SEE NOTE> Abnormal 23 Quantity FROM BROTH Blood Culture 07/30/2018 [facility] Blood Culture NO GROWTH: FINAL [address] Aerobic <SEE NOTE> [place] [address] [phone] Blood Culture Anaerobic NO GROWTH: FINAL <SEE NOTE> 25 Comprehensive Metabolic 07/30/2018 [facility] Glucose 173 mg/dL High 74-[address] [place], [place] [address] [phone] BUN 12 mg/dL Normal 7-18 Creatinine 0.9 mg/dL Normal 0.6-1.3 Glom Filtration Rate, Estimate >60 mL/min >60 If >60 mL/min >60 26 BUN/Creat 13.3 ratio Sodium 135 mmol/L Low [...] Phosphatase 59 U/L Normal 45-117 Ast-GP67 07/30/2018 [facility] Penicillin G >=0.[address] [place] [address] [phone] Oxacillin 0.5 Susceptible Tetracycline <=1 Susceptible Trimethoprim/Sulfamethoxazole <=10 Susceptible Gentamicin <=0.5 Susceptible Erythromycin <=0.25 Susceptible Clindamycin <=0.25 Susceptible Ciprofloxacin <=0.5 Susceptible Moxifloxacin <=0.25 Susceptible Levofloxacin 0.25 Susceptible Vancomycin <=0.5 Susceptible Laboratory test 07/30/2018 [facility] C-Reactive 125.0 High <3.[address] Protein,Quant mg/[place] [address] [phone] CBC W/Automated 07/30/2018 [facility] White Blood Count 13.5 K/uL High 3.4- 10.[address] [place], [place] [id number] [phone] Red Blood Count 4.01 M/uL Low 4.20-5.80 [...] 33.0-73.0 Lymph % 15.1 % Low 20.0-42.0 [facility] % 7.5 % Normal 0.0-10.0 Eo% 1.7 % Normal 0.0-6.6 Bas% 0.6 % Normal 0.0-1.1 Immature Grans 1.4 % Normal 0.0-5.0 NRBC % 0.0 /100WBC < 10/ 100 WBC Neut# 9.96 K/uL High 1.8-7.0 Lymph # 2.04 K/uL Normal 1.0-4.0 [facility] # 1.02 K/uL High 0.0-0.8 Eos # [...] [facility] White Blood Count 14.0 High 3.4-10.5 [address] K/[place] [address] [phone] Red Blood Count 4.04 M/uL Low 4.20-5.80 [...] 33.0-73.0 Lymph % 19.7 % Low 20.0-42.0 [facility] % 5.7 % Normal 0.0-10.0 Eo% 1.9 % Normal 0.0-6.6 Bas% 0.9 % Normal 0.0-1.1 Immature Grans 3.9 % Normal 0.0-5.0 NRBC % 0.0 /100WBC < 10/ 100 WBC Neut# 9.46 K/uL High 1.8-7.0 Lymph # 2.75 K/uL Normal 1.0-4.0 [facility] # 0.80 K/uL Normal 0.0-0.8 Eos # 0.27 K/uL Normal 0.0-0.5 Baso # 0.12 K/uL High 0.0-0.1 Immature Grans Absolute 0.55 K/uL NRBC # 0.00 K/uL Serum or plasma 07/05/2018 N2N/CCD Import Serum or plasma 0.8 albumin/globulin mass albumin/globulin mass ratio ratio GFR/Bsa pred.black 07/05/2018 N2N/CCD Import GFR/Bsa pred.black >60 >60 SerP MDRD-ArVRat SerP MDRD-ArVRat Automated blood 07/05/2018 N2N/CCD Import Automated [...] aminotransferase measureme measurement (enzymatic activity/volume) Comprehensive 07/05/2018 [facility] Glucose 172 High 74-10 Metabolic Panel [address] mg/dL 6 [place] [address] [phone] BUN 20 mg/dL High 7-18 Creatinine 1.1 mg/dL Normal 0.6-1.3 Glom Filtration Rate, Estimate >60 mL/min >60 If >60 mL/min >60 28 BUN/Creat 18.1 ratio Sodium 135 mmol/L Low [...] estimation from glycated hemoglobin (mass/volume) CBC 06/27/2018 [facility] White Blood Count 11.8 K/uL High 3.4-10.5 [address] [place] [address] [phone] Red Blood Count 4.02 M/uL Low 4.20-5.80 [...] < 10/ 100 WBC Aot Request 06/26/2018 [facility] Aot Request Test(s) added 29 [address] [place] [address] [phone] Tests to be added: crp, esr * Miscellaneous 06/26/2018 N2N/CCD Import * Miscellaneous Test(s) studies (set) studies (set) added Automated 06/26/2018 N2N/CCD Import Automated 111 High 2-45 erythrocyte erythrocyte sedimentation rate sedimentation rate (Esr) (Esr) Anaerobic Culture 2018 [facility] Gram Stain MANY GRAM 30 W/ GR Stain [address] [facility] POSITI <[place] [address] NOTE> [phone] Gram Stain MANY GRAM NEGATI <SEE NOTE> 31 Gram Stain RARE WHITE BLOOD <SEE NOTE> 32 Anaerobic Culture NO ANAEROBES ISO <SEE NOTE> 33 Routine Culture W/ 2018 [facility] Gram Stain MANY GRAM POSITI 34 Gram Stain [address] <SEE NOTE> [place] [address] [phone] Gram Stain MODERATE GRAM NE <SEE NOTE> 35 Gram Stain RARE WHITE BLOOD <SEE NOTE> 36 Aerobic Culture STAPHYLOCOCCUS A <SEE NOTE> Abnormal 37 Quantity MODERATE Aerobic Culture ENTEROCOCCUS JOHN <SEE NOTE> Abnormal 38 Quantity MODERATE Staphylococcus Aureus 2018 [facility] Penicillin G >=0.[address] [place], [place] [address] [phone] Oxacillin 0.5 Susceptible Tetracycline <=1 Susceptible Trimethoprim/Sulfamethoxazole <=10 Susceptible Gentamicin <=0.5 Susceptible Erythromycin <=0.25 Susceptible Clindamycin <=0.25 Susceptible Ciprofloxacin <=0.5 Susceptible Moxifloxacin <=0.25 Susceptible Levofloxacin 0.25 Susceptible Vancomycin <=0.5 Susceptible Enterococcus Avium 2018 [facility] Penicillin G 0.25 Susceptible [address] [place], [place] [address] [phone] Tetracycline <=1 Susceptible Ampicillin <=2 Susceptible Erythromycin [...] patients under 18 years of age. 7 INPT/OBS 8 FEW WHITE BLOOD CELLS 9 RARE GRAM NEGATIVE BACILLI 10 RARE GRAM POSITIVE COCCI 11 NO ANAEROBES ISOLATED 12 FEW WHITE BLOOD CELLS 13 RARE GRAM POSITIVE COCCI 14 RARE GRAM NEGATIVE BACILLI 15 ENTEROBACTER CLOACAE COMPLEX 16 STAPHYLOCOCCUS AUREUS 17 CELLULITIS, BACTEREMIA 18 Note: Persistent reduction for 3 months or more in an eGFR <60 mL/min/1.73 m2 defines CKD. Patients with eGFR values >/=60 mL/min/1.73 m2 may also have CKD if evidence of persistent proteinuria is present. The original MDRD equation for estimated GFR is not valid for patients less than 18 years of age. Additional information may be found at www.[email or web address]. 19 M86.171 20 GRAM POSITIVE COCCI 21 STAPHYLOCOCCUS AUREUS 22 GRAM POSITIVE COCCI 23 STAPHYLOCOCCUS AUREUS 24 NO GROWTH: FINAL REPORT 25 NO GROWTH: FINAL REPORT 26 Note: Persistent reduction for 3 months or more in an eGFR <60 mL/min/1.73 m2 defines CKD. Patients with eGFR values >/=60 mL/min/1.73 m2 may also have CKD if evidence of persistent proteinuria is present. The original MDRD equation for estimated GFR is not valid for patients less than 18 years of age. Additional information may be found at www.[email or web address].org. 27 CELLULITIS RT FOOT, DIABETES 28 Note: Persistent reduction for 3 months or more in an eGFR <60 mL/min/1.73 m2 defines CKD. Patients with eGFR values >/=60 mL/min/1.73 m2 may also have CKD if evidence of persistent proteinuria is present. The original MDRD equation for estimated GFR is not valid for patients less than 18 years of age. Additional information may be found at www.[email or web address]. 29 Tests: crp, esr Instructions: 30 MANY GRAM POSITIVE COCCI 31 MANY GRAM NEGATIVE BACILLI 32 RARE WHITE BLOOD CELLS 33 NO ANAEROBES ISOLATED 34 MANY GRAM POSITIVE COCCI 35 MODERATE GRAM NEGATIVE BACILLI 36 RARE WHITE BLOOD CELLS 37 STAPHYLOCOCCUS AUREUS 38 ENTEROCOCCUS AVIUM Procedures Date Code Description Status 08/03/2018 54064 Debridement subcutaneous tissue muscle bone Completed 06/29/2018 35761 Amputation, toe, interphalangeal joint Completed 2018 35152 Debridement:Skin, And Subcutaneous Tissue Completed Medical Devices Description No Information Available Encounters Type Date Location Provider Dx Diagnosis Office Visit 10/03/2018 Physical Medicine Anna Duque M86.171 Other acute 1:30p & Infectious M.D. osteomyelitis, Disease right ankle and foot E11.621 Type 2 diabetes mellitus with foot ulcer R78.81 Bacteremia R74.0 Nonspec elev of levels of transamns & lactic acid dehydrgnse Office Visit 09/12/2018 Anna Alfaro M86.171 Other acute 1:00p Medicine & M.D. osteomyelitis, right Infectious ankle and foot Disease R78.81 Bacteremia E11.621 Type 2 diabetes mellitus with foot ulcer R74.0 Nonspec elev of levels of transamns & lactic acid dehydrgnse Office Visit 07/30/2018 Anna Alfaro M86.171 Other acute 2:00p Medicine & M.D. osteomyelitis, right Infectious ankle and foot Disease L03.031 Cellulitis of right toe E11.621 Type 2 diabetes mellitus with foot ulcer Office Visit 07/16/2018 Physical Mezu, Anna, M86.171 Other acute 2:30p Medicine & M.D. osteomyelitis, right Infectious ankle and foot Disease L03.031 Cellulitis of right toe E11.621 Type 2 diabetes mellitus with foot ulcer N17.9 Acute kidney failure, unspecified Office Visit 2018 Operating Room Bonny Yanez03.115 Cellulitis of 2:50p Dwightopher H., right lower limb M.DShannan E11.621 Type 2 diabetes mellitus with foot ulcer Assessments Date Code Description Provider 10/03/2018 M86.171 Other acute osteomyelitis, right Anna [...] 08/03/2018 R78.81 Bacteremia Carlitos Araiza M.D. 08/02/2018 D72.829 Elevated white blood cell count, Carlitos Araiza M.D. unspecified 08/02/2018 R78.81 Bacteremia Anna Duque M.D. 08/02/2018 E11.69 Type 2 diabetes mellitus with [...] Type 2 diabetes mellitus with foot Brenda Avitia NP ulcer 07/05/2018 M86.171 Other acute osteomyelitis, right [...] Type 2 diabetes mellitus with foot Brenda Avitia NP ulcer 07/04/2018 M86.171 Other acute osteomyelitis, right Anna Duque M.D. ankle and foot 07/04/2018 A41.01 Sepsis due to Methicillin Anna Duque M.D. susceptible Staphylococcus aureus 07/04/2018 B96.89 Other specified bacterial agents as Anna Duque M.D. the cause of diseases classified elsewhere 07/04/2018 A41.9 Sepsis, unspecified organism Roder, Brenda, [employer]AR[employer]UG[employer] OPERATOR 07/04/2018 M86.171 Other acute osteomyelitis, right Roder, Brenda, EAR[employer]UG[employer] OPERATOR ankle and foot 07/04/2018 E11.65 Type 2 diabetes mellitus with Roder, Brenda, EARTH AUGER OPERATOR hyperglycemia 07/03/2018 R74.0 Nonspecific elevation of levels of Anna Duque M.D. transaminase and lactic acid dehydrogenase [LDH] 07/03/2018 E11.621 Type 2 diabetes mellitus with foot Roder, Brenda, EARTH AUG[employer] OPERATOR ulcer 07/03/2018 M86.171 Other acute osteomyelitis, right Anna Duque M.D. ankle and foot 07/03/2018 A41.01 Sepsis due to Methicillin Anna Duque M.D. susceptible Staphylococcus aureus 07/03/2018 B96.89 Other specified bacterial agents as Anna Duque M.D. the cause of diseases classified elsewhere 07/03/2018 A41.9 Sepsis, unspecified organism Roder, Brenda, EARTH AUGER OPERATOR 07/03/2018 M86.171 Other acute osteomyelitis, right Roder, Brenda, EARTH AUGER OPERATOR ankle and foot 07/03/2018 E11.65 Type 2 diabetes mellitus with Roder, Brenda, EARTH AUGER OPERATOR hyperglycemia 07/02/2018 E11.621 Type 2 diabetes mellitus with foot Roder, Brenda, EARTH AUGER OPERATOR ulcer 07/02/2018 A41.9 Sepsis, unspecified organism Roder, Brenda, EARTH AUGER OPERATOR 07/02/2018 M86.171 Other acute osteomyelitis, right Roder, Brenda, EARTH AUGER OPERATOR ankle and foot 07/02/2018 E11.65 Type 2 diabetes mellitus with Roder, Brenda, EARTH AUGER OPERATOR hyperglycemia 07/01/2018 E11.621 Type 2 diabetes mellitus with foot Cadet, Juan F, [employer] ulcer 07/01/2018 L03.115 Cellulitis of right lower limb Juan F Vizcaino, [employer] 07/01/2018 A41.9 Sepsis, unspecified organism Juan F Vizcaino, [employer] 07/01/2018 M86.171 Other acute osteomyelitis, right CadetJuan F, [employer]CHIT[employer]M ankle and foot 06/30/2018 E11.621 Type 2 diabetes mellitus with foot Juan F Vizcaino, [employer] ulcer 06/30/2018 L03.115 Cellulitis of right lower limb Juan F Vizcaino, [employer] 06/30/2018 A41.9 Sepsis, unspecified organism Juan F Vizcaino, [employer]CH[employer] 06/30/2018 M86.171 Other acute osteomyelitis, right Juan F Vizcaino, [employer] ankle and foot 06/29/2018 R74.0 Nonspecific elevation of levels of Anna Duque M.D. transaminase and lactic acid dehydrogenase [LDH] 06/29/2018 E11.621 Type 2 diabetes mellitus with foot Juan F Vizcaino, [employer] ulcer 06/29/2018 M86.171 Other acute osteomyelitis, right Anna Duque M.D. ankle and foot 06/29/2018 L03.115 Cellulitis of right lower limb Juan F Vizcaino, [employer] 06/29/2018 M86.271 Subacute osteomyelitis, right ankle Aman Yanez M.D. and foot 06/29/2018 A41.01 Sepsis due to Methicillin Anna Duque M.D. susceptible Staphylococcus aureus 06/29/2018 B96.89 Other specified bacterial agents as Anna Duque M.D. the cause of diseases classified elsewhere 06/29/2018 A41.9 Sepsis, unspecified organism Juan F Vizcaino, [employer] 06/29/2018 M86.171 Other acute osteomyelitis, right Juan F Vizcaino, [employer] ankle and foot 06/28/2018 R74.0 Nonspecific elevation of levels of Anna Duque M.D. transaminase and lactic acid dehydrogenase [LDH] 06/28/2018 E11.621 Type 2 diabetes mellitus with foot Juan F Vizcaino, [employer] ulcer 06/28/2018 M86.171 Other acute osteomyelitis, right Anna Duque M.D. ankle and foot 06/28/2018 L03.115 Cellulitis of right lower limb Cadet, Juan F, [employer] 06/28/2018 A41.01 Sepsis due to Methicillin Anna Duque M.D. susceptible Staphylococcus aureus 06/28/2018 B96.89 Other specified bacterial agents as Anna Duque M.D. the cause of diseases classified elsewhere 06/28/2018 A41.9 Sepsis, unspecified organism Juan F Vizcaino FNP 06/28/2018 M86.171 Other acute osteomyelitis, right Juan F Vizcaino FNP ankle and foot 06/27/2018 E11.621 Type 2 diabetes mellitus with foot Juan F Vizcaino, [employer] ulcer 06/27/2018 L03.115 Cellulitis of right lower limb Juan F Vizcaino FNP 06/27/2018 A41.9 Sepsis, unspecified organism Juan F Vizcaino FNP 06/27/2018 M86.171 Other acute osteomyelitis, right Juan F Vizcaino, [employer] ankle and foot 06/26/2018 E11.621 Type 2 diabetes mellitus with foot Juan F Vizcaino, [employer] ulcer 06/26/2018 R74.0 Nonspecific elevation of levels of Anna Duque M.D. transaminase and lactic acid dehydrogenase [LDH] 06/26/2018 M86.171 Other acute osteomyelitis, right Anna Duque M.D. ankle and foot 06/26/2018 L03.115 Cellulitis of right lower limb Juan F Vizcaino FNP 06/26/2018 A41.9 Sepsis, unspecified organism Anna Duque M.D. 06/26/2018 D72.829 Elevated white blood cell count, Juan F Vizcaino FNP unspecified 06/26/2018 E11.621 Type 2 diabetes mellitus with foot Anna Duque M.D. ulcer 06/26/2018 A41.9 Sepsis, unspecified organism Juan F Vizcaino FNP 2018 E11.621 Type 2 diabetes mellitus with foot Juan F Vizcaino, [employer] ulcer 2018 L03.115 Cellulitis of right lower limb Aman Yanez M.D. 2018 E11.621 Type 2 diabetes mellitus with foot Aman Yanez M.D. ulcer 2018 L03.115 Cellulitis of right lower limb Juan F Vizcaino [employer] 2018 D72.829 Elevated white blood cell count, Juan F Vizcaino FNP unspecified 2018 R74.0 Nonspecific elevation of levels of GietJuan F, [employer] transaminase and lactic acid dehydrogenase [LDH] 06/24/2018 E11.621 Type 2 diabetes mellitus with foot Gallo Teague MD ulcer 06/24/2018 L03.115 Cellulitis of right lower limb Gallo Teague MD 06/24/2018 D72.829 Elevated white blood cell count, Gallo Teague MD unspecified 06/24/2018 N17.9 Acute kidney failure, unspecified Gallo Teague MD Plan of Treatment Future Appointment(s):10/17/2018 1:00 pm - Anna Duque M.D. at [facility]11/07/2018 9:00 am - Jp Moore DPM at Podiatry [facility]1408/23/2018 - Jenae Burns PAM86.171 Other acute osteomyelitis, right ankle and foot Functional Status Description No Information Available Mental Status Description No Information Available Referrals Refer to Dr Reason for Referral Status Appt Date Ravin Damon M.D. Need for further debridement vs Patient Notified amputation. Patient has been on IV Abx since hospitalization in August 07, 2018. Repeat MRI ordered. [address] [place], [place] [id number] [phone] Ravin Damon M.D. Closed [address] [place] [address] [phone] Chayo Hale NP Right 1st toe amputation performed by Closed 08/2018 Renata on 06/29. [facility] [address] [place] [phone]
--- OUTSIDE RECORDS SUMMARY | 2018-11-21 14:39 | XMS REPORT | Continuity of Care Document ---
:1950 External Reference #:[id number] Author Name Ravin Damon M.D. (transmitted by agent of provider Alissa Cuevas) Address [address] [facility] [place] [address] Care Team Providers Name Role Phone aJh Palm M.D. - Family Care Team Information [employer] Medicine Problems Active Problems Provider Date Essential [...] Unknown Never Smoked Cigarettes Smoking Status Reviewed: 09/25/18 Never Smoked Cigarettes ETOH Use Denies alcohol [...] 90tabs Unknown daily 40mg Tablets Humulin 70/30 30 units in in Unknown the morning and (70-30)100Unit/ML 30 units in at Suspension night Allopurinol Take Two Unknown 100mg Tablets By Tablets Mouth Every Day Lisinopril 1 by mouth Unknown 2.5mg every day Tablets Cabergoline take 1 tab by Unknown 0.5mg mouth twice Tablets weekly Immunizations Description No Information Available Vital Signs Date Vital Result Comment 09/25/2018 11:13am Height 65 inches 5'5" Weight 222.00 lb Heart Rate 90 /min BP Systolic 138 mmHg BP Diastolic 82 mmHg Body Temperature 98.7 F Pain Level 0 BMI (Body Mass Index) 36.9 kg/m2 04/25/2018 2:31pm Height 65 inches 5'5" Weight 249.00 lb Heart Rate 84 /min BP Systolic Sitting 102 mmHg BP Diastolic Sitting 58 mmHg Respiratory Rate 14 /min BMI (Body Mass Index) 41.4 kg/m2 Results Description No Information Available Procedures Description No Information Available Medical Devices Description No Information Available Encounters Type Date Location Provider Dx Diagnosis Office Visit 04/25/2018 [place] Aman Rinaldi, R25.1 Tremor, 2:45p [facility] unspecified [employer] R26.81 Unsteadiness on feet R93.0 Abnormal findings on dx imaging of skull and head, NEC Assessments Date Code Description Provider 09/25/2018 M86.671 Other chronic osteomyelitis, right ankle Ravin Damon M.D. and foot 04/25/2018 R25.1 Tremor, unspecified Aman Rinaldi M.D. 04/25/2018 R26.81 Unsteadiness on feet Aman Rinaldi M.D. 04/25/2018 R93.0 Abnormal findings on diagnostic imaging of Aman Rinaldi M.D. skull and head, n Plan of Treatment Future Appointment(s):10/10/2018 9:30 am - Ravin Nelson, M.D. at [facility] AT [facility]76/25/2019 10:30 am - Aman Rinaldi M.D. at [place] [facility]09/25/2018 - Ravin Damon M.D.M86.671 Other chronic osteomyelitis, right ankle and footFollow up:2 weeks in [place] Functional Status Description No Information Available Mental Status Description No Information Available Referrals Description No Information Available
[2018-11-21] MEDS ORDERED: Acetaminophen TAB* 325 MG PO PRN (15:59)
[2018-11-21] MEDS ORDERED: traMADol TAB* 50 MG PO PRN (15:59)
[2018-11-21] MEDS ORDERED: diPHENhydraMINE PO* 25 MG PO PRN (16:04)
[2018-11-21] MEDS ORDERED: Ondansetron ODT TAB* 4 MG PO PRN (16:04)
[2018-11-21] MEDS ORDERED: diPHENhydraMINE IV* 50 MG/ML 1 ml VIAL (BENADRYL) IV PRN (16:04)
[2018-11-21] MEDS ORDERED: Ondansetron INJ* 2 MG/ML VIAL IV PRN (16:04)
[2018-11-21] MEDS ORDERED: oxyCODONE/Acetamin 5/325 MG* TAB PO PRN (16:04)
[2018-11-21 17:15] LABS: ABS Basophils 0.1 10^3/ul (0-0.2); ABS Eosinophils 0.2 10^3/ul (0-0.6); ABS Lymphocytes 2.4 10^3/ul (1.0-4.8); ABS Monocytes 0.9 10^3/ul (0-0.8); ABS Neutrophils 10.9 10^3/ul (1.5-7.7); Eosinophil % 1.1 %; Hematocrit 40 % (42-52); Hemoglobin 13.1 g/dL (14.0-18.0); Lymphocyte % 16.6 %; Mean Corpuscular HGB Conc 33 g/dL (31-36); Mean Corpuscular Hemoglobin 29 pg (27-31); Mean Corpuscular Volume 87 fL (80-94); Mean Platelet Volume 7.6 fL (7.4-10.4); Platelet Count 470 10^3/uL (150-450); Red Blood Count 4.56 10^6 /uL (4.18-5.48); Red Cell Distribution Width 15 % (10-15); White Blood Count 14.5 10^3/uL (3.5-10.8)
[2018-11-21 17:26] LABS: INR 1.09 (0.82-1.09)
[2018-11-21 17:35] LABS: BUN/Creatinine Ratio 19.2 (8-20); Calcium 9.6 mg/dL (8.6-10.3); EGFR Non-African American 75.2 (>60); Potassium 4.1 mmol/L (3.5-5.0)
[2018-11-21] MEDS ORDERED: Vancomycin per Pharmacy* NOTE FOLLOW UP SCH (18:00)
[2018-11-21] MEDS ORDERED: Vancomycin 1500 MG IV - x ONCE IVPB ONE ×2 (18:30)
[2018-11-21] MEDS ORDERED: Insulin ISOPH/REG 70/30 (*) 1 UNITS UNIT SUBCUT SCH (21:00)
[2018-11-21] MEDS ORDERED: Dextrose 50% VIAL 50 ml IV PUSH PRN (21:25)
[2018-11-21 22:26] LABS: C Reactive Protein 7.07 mg/L (<8.01)
[2018-11-21] MEDS: Primidone TAB(*) 50 MG PO SCH (22:48)
[2018-11-21] MEDS: Allopurinol TAB* 100 MG PO SCH (22:49)
[2018-11-21] MEDS: Aspirin EC TAB* 81 MG TAB.EC PO SCH (22:49)
[2018-11-21] MEDS: Heparin VIAL(*) 5000 UNITS/ML VIAL (FIVE THOUSAND) SUBCUT SCH (22:50)
--- NOTE | 2018-11-22 00:29 | CONS ---
HOSPITAL MEDICINE CONSULTATION REPORT: DATE OF CONSULT: 11/21/18 PROVIDER: Radha Calle NP. ATTENDING PHYSICIAN: Dr. Damon. CONSULTING PHYSICIAN: Dr. Jerome Holland (dictated by Radha Calle NP). REASON FOR CONSULT: Co-management of chronic medical conditions. HISTORY OF PRESENT ILLNESS: Mr. Crespo is a 68-year-old male with a past medical history significant for type 2 diabetes, hypothyroid, gout, hyperlipidemia, history of tremors, and depression who presented from Dr. Damon to our office due to nonhealing foot wound, concern for worsening infection. In brief, the patient has had an ongoing foot infection that has failed to heal, so he presented to [facility] for further management of his right foot infection. The patient denies any fever, chills, unintended weight loss, chest pain, or edema. Denies any cough, hemoptysis, or shortness of breath. No nausea, vomiting, diarrhea, abdominal pain, hematuria, or dysuria. Denies any focal weakness, sensory loss, visual complaints, dysphagia, arthralgias, or myalgias. He does complain of open wound on his right foot. Denies any psychosis or anxiety. Due to his right foot wound and his history of diabetes, hypothyroidism, and hyperlipidemia, Hospital Medicine was asked to see and evaluate the patient to help co-manage his chronic medical conditions. PAST MEDICAL HISTORY: Significant for: 1. Type 2 diabetes. 2. Hypothyroid. 3. Gout. 4. Hyperlipidemia. 5. Tremors. 6. Hypertension. 7. Hx of osteomyelitis of the Right foot 8. Peripheral neuropathy. PAST SURGICAL HISTORY: Right toe surgery, right knee surgery. HOME MEDICATIONS: Include: 1. Fluoxetine 40 mg p.o. daily. 2. Lisinopril 2.5 mg p.o. daily. 3. Levothyroxine 125 mcg p.o. daily. 4. Allopurinol 200 mg p.o. at bedtime. 5. Glipizide 10 mg p.o. daily. 6. Metformin 1000 mg b.i.d. 7. Lovastatin 40 mg p.o. daily. 8. Primidone 50 mg p.o. b.i.d. 9. Aspirin 81 mg p.o. daily. 10. Novolin 70/30, 12 units 2 times daily. ALLERGIES: No known drug allergies. FAMILY HISTORY: Mother with lung cancer. Father with brain cancer. No reported history of coronary artery disease or diabetes. SOCIAL HISTORY: The patient denies any tobacco, alcohol, or illicit drug use. He is single. He lives alone. Surrogate decision maker in the event he is unable to make his own decisions is his sister, Nathaly, or son, Antonio Crespo. He is a full code. REVIEW OF SYSTEMS: An 11-point review of systems was completed. All pertinent positives were mentioned in the HPI. PHYSICAL EXAM: General: At this time, Mr. Crespo is a 68-year-old male. He is resting in his room on his hospital bed. He is in no acute distress. Vital Signs: Blood pressure 119/58, heart rate 101, respirations 18, O2 saturation 100 % on room air, temperature is 97.6. HEENT: Head is atraumatic and normocephalic. Eyes: EOMs are intact. Sclerae anicteric and not pale. Oral mucosa appeared to be moist. Neck is supple. Lungs are clear to auscultation bilaterally. No wheezes, rales, or rhonchi. Cardiac: S1, S2. Regular rate and rhythm. No murmurs, rubs, or gallops. Abdomen: Soft and nontender. Bowel sounds are present x4. Extremities: He is able to move all 4 extremities. There is no clubbing or cyanosis. Neurologic: He is awake, alert, and oriented x3. Speech is clear. Thought process is intact. There are no gross focal deficits. Skin: He does have a dressing that is dry and intact to his right foot. DIAGNOSTIC STUDIES/LAB DATA: WBCs are 14.5, RBCs 4.56, hemoglobin 13.1, hematocrit 40, platelet count 470. INR was 1.09. Sodium 136, potassium 4.1, chloride 102, carbon dioxide was 25, anion gap 9, BUN 19, creatinine 0.99, glucose was 177, and calcium 9.6. IMPRESSION AND PLAN: Mr. Crespo is a 68-year-old male with a past medical history significant for osteomyelitis of the right foot, diabetes, hypothyroid, gout, hyperlipidemia, and tremor who presented to [facility] from Dr. Damon's office due to infection in the right foot. Our recommendations are as follows: 1. Right foot infection. Management per orthopedics, PT/OT per orthopedics, bowel regimen per orthopedics, pain management per orthopedics. I will continue with vancomycin as ordered and infectious disease consult as ordered. Consult to Dr. Genao for vasulcar evaluation. 2. Diabetes type 2. I will stop his Novolin 70/[address] on lispro sliding scale with fingersticks a.c. and at bedtime. I will hold his metformin and glipizide as well. 3. Hypertension. He should continue on lisinopril 2.5 mg p.o. daily. 4. Hyperlipidemia. He should continue on lovastatin 40 mg p.o. daily. 5. Tremor. He should continue on primidone, as previously prescribed. 6. History of gout. The patient should continue on allopurinol 200 mg at bedtime, as previously prescribed. 7. Sepsis. The patient does meet sepsis criteria on admission with leukocytosis and heart rate of 101 with suspected source of right foot infection. He was given vancomycin. We will continue on vancomycin. He has blood cultures that are currently pending. I will add on lactic acid. 8. FEN. He can have a consistent carb diet. 9. Code status. He is a full code. 10. DVT prophylaxis. As per orthopedics. TIME SPENT: Time spent on this consultation was 45 minutes. Greater than half of that time was spent at the bedside reviewing events leading thus far to his hospitalization, performing physical exam, and reviewing my plan of care. I have discussed this with my attending, Dr. Jerome Holland; he is in agreement with my plan. RADHA CALLE, BETHANY [id number]/[facility] #: [id number] NURIA
[2018-11-22] MEDS: Vancomycin(*) 1,250 MG in NS 0.9% 250 ML* 250 ML IVPB SCH ×3 (04:52→21:30)
[2018-11-22] MEDS: Levothyroxine TAB* 125 MCG TAB PO SCH (06:50)
[2018-11-22] MEDS: Heparin VIAL(*) 5000 UNITS/ML VIAL (FIVE THOUSAND) SUBCUT SCH ×3 (06:50→21:32)
[2018-11-22] MEDS: Atorvastatin* 80 MG TAB PO SCH (09:32)
[2018-11-22] MEDS: FLUoxetine CAP* 20 MG PO SCH (09:32)
[2018-11-22] MEDS: Lisinopril TAB* 5 MG PO SCH (09:32)
[2018-11-22] MEDS: Primidone TAB(*) 50 MG PO SCH ×2 (09:33→20:15)
[2018-11-22] MEDS: Insulin LISPRO* 1 UNITS UNIT SUBCUT SCH ×3 (09:33→18:14)
--- NOTE | 2018-11-22 11:05 | PN ---
Subjective Date of Service: 11/22/18 Interval History: Patient is feeling well. Patient states he is feeling overall better with the antibiotics and that since he began to have problems with his foot, he felt as if he was in a fog. Patient has been having 4-5 BMs daily without abdominal pain or cramping all summer and does not feel as if he has been getting dehydrated due to that. Patient denies F/C, N/V, abdominal pain, leg cramping, CP, SOB, dizziness, Pain in his leg, or other pain. Family History: Unchanged from Admission Social History: Unchanged from Admission Past Medical History: Unchanged from Admission Objective Active Medications: Acetaminophen (Tylenol Tab*) 650 mg PO Q6H PRN PRN Reason: PAIN - MILD Allopurinol (Zyloprim Tab*) 200 mg PO BEDTIME [facility] Last Admin: 11/21/18 22:49 Dose: 200 mg Aspirin (Aspirin Ec Tab*) 81 mg PO BEDTIME [facility] Last Admin: 11/21/18 22:49 Dose: 81 mg Atorvastatin Calcium (Lipitor*) 80 mg PO QAM [facility] Last Admin: 11/22/18 09:32 Dose: 80 mg Dextrose (Dextrose 50% Vial 50 Ml*) 25 ml IV PUSH .FOR FS < 60 - SS PRN PRN Reason: FS < 60 Diphenhydramine HCl (Benadryl Iv*) 25 mg IV Q6H PRN PRN Reason: PRURITIS Diphenhydramine HCl (Benadryl Po*) 25 mg PO Q6H PRN PRN Reason: PRURITIS Fluoxetine HCl (Prozac Cap*) 40 mg PO QAM [facility] Last Admin: 11/22/18 09:32 Dose: 40 mg Heparin Sodium (Porcine) (Heparin Vial(*)) 5,000 units SUBCUT Q8HR [facility] Last Admin: 11/22/18 06:50 Dose: 5,000 units Vancomycin HCl 1,250 mg/ (Sodium Chloride) 250 mls @ 166.667 mls/hr IVPB Q8H [facility] Last Admin: 11/22/18 04:52 Dose: 166.667 mls/hr Insulin Human Lispro (Humalog*) 0 units SUBCUT AC [facility]; Protocol Last Admin: 11/22/18 09:33 Dose: 3 units Levothyroxine Sodium (Synthroid Tab*) 125 mcg PO 0600 [facility] Last Admin: 11/22/18 06:50 Dose: 125 mcg Lisinopril (Prinivil Tab*) 2.5 mg PO QAM [facility] Last Admin: 11/22/18 09:32 Dose: 2.5 mg Non-Formulary Medication (Cabergoline) 0.5 mg PO MoFr@0900 [facility] Ondansetron HCl (Zofran Inj*) 4 mg IV Q6H PRN PRN Reason: NAUSEA Ondansetron HCl (Zofran Odt Tab*) 4 mg PO Q6H PRN PRN Reason: NAUSEA Oxycodone/Acetaminophen (Percocet 5/325 Tab*) 1 tab PO Q3H PRN PRN Reason: PAIN - SEVERE Pharmacy Consult (Vancomycin Per Pharmacy*) 1 note FOLLOW UP .VANC PER PHARMACY [facility]; Protocol Pharmacy Profile Note (Vancomycin Trough Check) 1 note FOLLOW UP 1929 ONE Stop: 11/22/18 19:31 Primidone (Mysoline Tab(*)) 50 mg PO BID [facility] Last Admin: 11/22/18 09:33 Dose: 50 mg Tramadol HCl (Ultram*) 50 mg PO Q6H PRN PRN Reason: PAIN - MODERATE Vital Signs - 8 hr 11/22/18 11/22/18 03:30 08:00 Temperature 98.1 F 97.1 F Pulse Rate 72 72 Respiratory 16 16 Rate Blood Pressure 129/58 127/59 (mmHg) O2 Sat by Pulse 96 Oximetry Oxygen Devices in Use Now: None Appearance: Patient is a 68yo male who appears stated age and is sitting in the bed in [facility]. Eyes: No Scleral Icterus, PERRLA Ears/Nose/Mouth/Throat: NL Teeth, Lips, Gums, Clear Oropharnyx, Mucous Membranes Moist Neck: NL Appearance and Movements; NL JVP, Trachea Midline Respiratory: Symmetrical Chest Expansion and Respiratory Effort, Clear to Auscultation Cardiovascular: NL Sounds; No Murmurs; No JVD, RRR, No Edema, - - Trace pulses in B/L LE. 2+ in B/L radial Abdominal: NL Sounds; No Tenderness; No Distention, No Hepatosplenomegaly Lymphatic: No Cervical Adenopathy Extremities: No Edema, No Clubbing, Cyanosis Skin: No Nodules or Sclerosis, - - Right foot with several open areas on B/L Aspects with scant drainage. Great toe surgically absent. Neurological: Alert and Oriented x 3, NL Sensation, NL Muscle Strength and Tone , - - CN II-XII intact. Result Diagrams: 11/21/18 17:07 11/21/18 17:07 Assess/Plan/Problems-Billing Assessment: Patient is a 68yo male with a PMH for DM II, PVD and chronic LE wounds who is admitted for concern for wound infection and possible revascularization and surgical debridement. - Patient Problems (1) Chronic wound of extremity Current Visit: Yes Status: Acute Code(s): VAT7312 - SNOMED Code(s): 427228814 Comment: - On RLE, S/P multiple procedures. - Contributed to by DM II and PVD - Pending possible revascularization and orthopedic input. - Pressure reduction - Grew Enterococcus with multiple resistances. Continue Vanco, Pending ID consult. (2) DM II (diabetes mellitus, type II), controlled Current Visit: Yes Status: Acute Code(s): E11.9 - TYPE 2 DIABETES MELLITUS WITHOUT COMPLICATIONS SNOMED Code(s): 45633074 Comment: - SSI while inpatient instead of 70/30 - A1c 5.8% indicating very good control - Hold Metformin and Glipizide (3) PVD (peripheral vascular disease) Current Visit: Yes Status: Acute Code(s): I73.9 - PERIPHERAL VASCULAR DISEASE, UNSPECIFIED SNOMED Code(s): 798624940 Comment: - Rest Pain level PVD, Pending IR consult and possible revascularization - Poor to no pulses in B/L LE. - Pending IR recommendations for possible additonal antiplatelet agents - Complains of no claudication. - Continue Lipitor and Aspirin (4) HTN (hypertension) Current Visit: Yes Status: Acute Code(s): I10 - ESSENTIAL (PRIMARY) HYPERTENSION SNOMED Code(s): 09859967 Comment: - Normotensive, Continue Lisinopril (5) Prolactin secreting pituitary adenoma Current Visit: Yes Status: Acute Code(s): D35.2 - BENIGN NEOPLASM OF PITUITARY GLAND SNOMED Code(s): 742297715 Comment: - Pre-op pending current intervention - Continue Cabergoline MoFr (6) Full code status Current Visit: Yes Status: Acute Code(s): Z78.9 - OTHER SPECIFIED HEALTH STATUS SNOMED Code(s): 533527245 (7) DVT prophylaxis Current Visit: Yes Status: Acute Code(s): Z29.9 - ENCOUNTER FOR PROPHYLACTIC MEASURES, UNSPECIFIED SNOMED Code(s): 397087795 Comment: - Heparin SubQ Status and Disposition: Inpatient for possible surgical intervention.
--- NOTE | 2018-11-22 11:08 | CONS ---
CONSULTATION REPORT: DATE OF CONSULT: 11/22/18 REQUESTING PHYSICIAN: Dr. Damon. CONSULTING SERVICE: Infectious Disease. REASON FOR CONSULTATION: Right foot wound. IMPRESSION: 1. Peripheral vascular disease with abnormal NGOZI and nonhealing wound of the first ray amputation from 10/22/18 and a more concerning lateral foot area of superficial necrosis after an [employer] wrap. 2. Chronic osteomyelitis of the right first ray status post amputation, that was noted at the time of ceftriaxone therapy, a wound culture at that time grew Enterococcus faecium. He had been treated with 3 to 4 months of IV antibiotics per his report, leading up to that surgery. 3. Peripheral vascular disease. 4. Insulin dependent diabetes mellitus. 5. Obesity. 6. Hyperlipidemia. 7. Gout. RECOMMENDATION: 1. Continue vancomycin goal trough 10 to 15, follow his exam here. The medial foot at the site of his ray amputation does not appear grossly infected, so he may not need a long course of IV treatment, but it is always an option. 2. Consultation with Dr. Genao is pending for evaluation for intervention of the right lower extremity. HISTORY OF PRESENT ILLNESS: This is a 68-year-old man with vascular disease, diabetes, who had had a right great toe osteomyelitis followed by surgeons and Dr. Tracy in [place] and had a partial toe amputation, long course of IV antibiotics, ceftriaxone by a right upper extremity PICC that he apparently tolerated well. Because of need for further surgery, he saw Dr. Damon, who did perform a right first ray amputation 10/22/18. Wound culture grew Enterococcus faecium. He notes he had been on ceftriaxone over the last couple of weeks, but because of a wound at the amputation site and some necrotic changes in the skin on the lateral foot, he came to the hospital, his white count was 14,000. He has been afebrile here. He is on vancomycin. He denies any foot pain, does not have feeling in that foot. PAST MEDICAL HISTORY: 1. Obesity. 2. Insulin-dependent diabetes, type 2. 3. Peripheral neuropathy. 4. Peripheral vascular disease with abnormal NGOZI right greater than left. 5. Chronic osteomyelitis status post right first ray amputation October 2018. 6. Cognitive impairment. 7. Pituitary tumor. 8. Hypothyroidism. 9. Gout. 10. Hyperlipidemia. 11. Tremor. 12. Hypertension. MEDICATIONS: 1. Tylenol. 2. Allopurinol. 3. Aspirin. 4. Lipitor. 5. Cabergoline. 6. Fluoxetine. 7. Heparin subcutaneous injection. 8. Levothyroxine. 9. Zofran as needed. 10. Oxycodone as needed. 11. Primidone. 12. Vancomycin 1250 mg every 8 hours. ALLERGIES: No known drug allergies. FAMILY HISTORY: Mother had lung cancer. Father had brain cancer. SOCIAL HISTORY: He lives in [place]. He is a non-smoker, does not drink. REVIEW OF SYSTEMS: All negative except as noted above to a 12 point review of systems. PHYSICAL EXAM: Vital Signs: Temperature 36.7, heart rate 70, respiratory rate 16, blood pressure 130/60, oxygen saturation 96% on room air. In general, he is awake, not in distress. Neurologic: He is oriented x3. Follow all commands. HEENT: There is no conjunctival hemorrhage. Oropharynx without lesions. Neck: Supple without mass. Heart: Regular rate and rhythm without murmurs, rubs or gallops. Lungs: Clear to auscultation bilaterally. Abdomen: Soft, nontender, nondistended. There is bowel sounds. Skin: There is no rash or splinter hemorrhages. Musculoskeletal: There is no spine tenderness to palpation or joint synovitis. The right foot is warm. There is a medial linear wound at the amputation incision site without surrounding erythema. There is some fiber at the base. The lateral foot has purplish discoloration through the forefoot with mild erythema. Sensation is absent to light touch in the right foot. Left foot, there is no wound. DIAGNOSTIC STUDIES/LAB DATA: White blood cell count 14, hemoglobin 13, platelets 470. Creatinine is 0.9. CRP was 7. Please see impressions and recommendations outlined above that I discussed with Dr. Damon. Thank you for asking me to see Mr. Crespo in consultation. [id number]/[facility] #: [id number] NURIA
--- NOTE | 2018-11-22 14:29 | PN ---
Progress Note - Progress Note Date of Service: 11/22/18 SOAP: Subjective: []Pt seen at bedside he feels well without complaints. Denies fever or chills, CP, SOB, dizziness or nausea. Reports his right foot was erythematous yesterday and is no longer red today. Objective: []Gen: NAD, nontoxic appearing RLE: 1st ray surgically absent with nonhealing wounds along the medial foot, no gross purulence and no erythema. Lateral foot with quarter sized black area of superficial necrosis. Pedal pulses not palpable. Insensate foot. Assessment: []Chronic osteomyelitis of the right first ray status post amputation, nonhealing wounds Right foot with superficial necrosis laterally PVD Plan: [] ABX per ID: Continue vancomycin goal trough 10 to 15 Needs vasc consult, suspect PVD as cause of poor wound healing Heparin dvt prophy while in house Possible OR monday if able to revasc Vital Signs Temp 97.8 F 11/22/18 12:00 Pulse 76 11/22/18 12:00 Resp 18 11/22/18 12:00 BP 129/51 11/22/18 12:00 Pulse Ox 95 11/22/18 12:00 Intake & Output 11/21/18 11/22/18 11/22/18 18:59 06:59 18:59 Intake Total 275 340 Output Total 600 Balance 275 -260 Weight 207 lb 12.8 oz Intake: IV Fluids 275 ABX - VANCOMYCIN 250 NS (0.9%) 25 Oral 0 340 Output: Urine 600 Other: # Voids 2 3 Laboratory Last Values WBC 14.5 10^3/uL (3.5-10.8) H 11/21/18 17:07 RBC 4.56 10^6 /uL (4.18-5.48) 11/21/18 17:07 Hgb 13.1 g/dL (14.0-18.0) L 11/21/18 17:07 Hct 40 % (42-52) L 11/21/18 17:07 MCV 87 fL (80-94) 11/21/18 17:07 MCH 29 pg (27-31) 11/21/18 17:07 MCHC 33 g/dL (31-36) 11/21/18 17:07 RDW 15 % (10-15) 11/21/18 17:07 Plt Count 470 10^3/uL (150-450) H D 11/21/18 17:07 MPV 7.6 fL (7.4-10.4) 11/21/18 17:07 Neut % (Auto) 75.5 % 11/21/18 17:07 Lymph % (Auto) 16.6 % 11/21/18 17:07 Kleberg % (Auto) 6.1 % 11/21/18 17:07 Eos % (Auto) 1.1 % 11/21/18 17:07 Baso % (Auto) 0.7 % 11/21/18 17:07 Absolute Neuts (auto) 10.9 10^3/ul (1.5-7.7) H 11/21/18 17:07 Absolute Lymphs (auto) 2.4 10^3/ul (1.0-4.8) 11/21/18 17:07 Absolute Monos (auto) 0.9 10^3/ul (0-0.8) H 11/21/18 17:07 Absolute Eos (auto) 0.2 10^3/ul (0-0.6) 11/21/18 17:07 Absolute Basos (auto) 0.1 10^3/ul (0-0.2) 11/21/18 17:07 Absolute Nucleated RBC 0.0 10^3/ul 11/21/18 17:07 Nucleated RBC % 0.0 11/21/18 17:07 INR (Anticoag Therapy) 1.09 (0.82-1.09) 11/21/18 17:07 Sodium 136 mmol/L (135-145) 11/21/18 17:07 Potassium 4.1 mmol/L (3.5-5.0) 11/21/18 17:07 Chloride 102 mmol/L (101-111) 11/21/18 17:07 Carbon Dioxide 25 mmol/L (22-32) 11/21/18 17:07 Anion Gap 9 mmol/L (2-11) 11/21/18 17:07 BUN 19 mg/dL (6-24) 11/21/18 17:07 Creatinine 0.99 mg/dL (0.67-1.17) 11/21/18 17:07 Est GFR ( Amer) 91.0 (>60) 11/21/18 17:07 Est GFR (Non-Af Amer) 75.2 (>60) 11/21/18 17:07 BUN/Creatinine Ratio 19.2 (8-20) 11/21/18 17:07 Glucose 77 mg/dL (70-100) 11/21/18 17:07 POC Glucose (mg/dL) 152 mg/dL (70-100) H 11/22/18 07:33 Lactic Acid 1.6 mmol/L (0.5-2.0) 11/21/18 22:11 Calcium 9.6 mg/dL (8.6-10.3) 11/21/18 17:07 C-Reactive Protein 7.07 mg/L (<8.01) 11/21/18 17:07
[2018-11-22] MEDS: Aspirin EC TAB* 81 MG TAB.EC PO SCH (20:15)
[2018-11-22] MEDS: Allopurinol TAB* 100 MG PO SCH (20:15)
[2018-11-23] MEDS ORDERED: Vancomycin Trough Check NOTE FOLLOW UP ONE (05:30)
[2018-11-23] MEDS: Levothyroxine TAB* 125 MCG TAB PO SCH (06:04)
[2018-11-23] MEDS: Heparin VIAL(*) 5000 UNITS/ML VIAL (FIVE THOUSAND) SUBCUT SCH ×3 (06:05→20:52)
[2018-11-23 06:40] LABS: ABS Basophils 0.1 10^3/ul (0-0.2); ABS Eosinophils 0.2 10^3/ul (0-0.6); ABS Lymphocytes 2.3 10^3/ul (1.0-4.8); ABS Monocytes 0.7 10^3/ul (0-0.8); ABS Neutrophils 5.9 10^3/ul (1.5-7.7); Eosinophil % 1.8 %; Hematocrit 38 % (42-52); Hemoglobin 12.7 g/dL (14.0-18.0); Lymphocyte % 25.2 %; Mean Corpuscular HGB Conc 33 g/dL (31-36); Mean Corpuscular Hemoglobin 29 pg (27-31); Mean Corpuscular Volume 87 fL (80-94); Mean Platelet Volume 7.7 fL (7.4-10.4); Platelet Count 368 10^3/uL (150-450); Red Blood Count 4.43 10^6 /uL (4.18-5.48); Red Cell Distribution Width 15 % (10-15); White Blood Count 9.3 10^3/uL (3.5-10.8)
[2018-11-23 06:55] LABS: BUN/Creatinine Ratio 17.2 (8-20); C Reactive Protein 6.85 mg/L (<8.01); EGFR African American 97.8 (>60); EGFR Non-African American 80.8 (>60); Magnesium 2.1 mg/dL (1.9-2.7); Potassium 4.2 mmol/L (3.5-5.0)
[2018-11-23] MEDS: Vancomycin(*) 1,250 MG in NS 0.9% 250 ML* 250 ML IVPB SCH (07:16)
[2018-11-23] MEDS: FLUoxetine CAP* 20 MG PO SCH (08:35)
[2018-11-23] MEDS: Insulin LISPRO* 1 UNITS UNIT SUBCUT SCH ×3 (08:35→18:07)
[2018-11-23] MEDS: Atorvastatin* 80 MG TAB PO SCH (08:36)
[2018-11-23] MEDS: Primidone TAB(*) 50 MG PO SCH ×2 (08:37→20:52)
[2018-11-23] MEDS: Lisinopril TAB* 5 MG PO SCH (08:37)
[2018-11-23] MEDS: CABERGOLINE 0.5 MG PO SCH (12:11)
--- NOTE | 2018-11-23 12:31 | PN ---
Subjective Date of Service: 11/23/18 Interval History: Patient feels great today. Patient denies any pain in his leg. Patient is still having frequent BMs. Patient denies F/C, N/V, abdominal pain, dysuria, dizziness , or other pain. Patient has neuropathy and has not had pain in his distal feet for a long period of time. Family History: Unchanged from Admission Social History: Unchanged from Admission Past Medical History: Unchanged from Admission Objective Active Medications: Acetaminophen (Tylenol Tab*) 650 mg PO Q6H PRN PRN Reason: PAIN - MILD Allopurinol (Zyloprim Tab*) 200 mg PO BEDTIME [facility] Last Admin: 11/22/18 20:15 Dose: 200 mg Aspirin (Aspirin Ec Tab*) 81 mg PO BEDTIME [facility] Last Admin: 11/22/18 20:15 Dose: 81 mg Atorvastatin Calcium (Lipitor*) 80 mg PO QAM [facility] Last Admin: 11/23/18 08:36 Dose: 80 mg Dextrose (Dextrose 50% Vial 50 Ml*) 25 ml IV PUSH .FOR FS < 60 - SS PRN PRN Reason: FS < 60 Diphenhydramine HCl (Benadryl Iv*) 25 mg IV Q6H PRN PRN Reason: PRURITIS Diphenhydramine HCl (Benadryl Po*) 25 mg PO Q6H PRN PRN Reason: PRURITIS Fluoxetine HCl (Prozac Cap*) 40 mg PO QAM [facility] Last Admin: 11/23/18 08:35 Dose: 40 mg Heparin Sodium (Porcine) (Heparin Vial(*)) 5,000 units SUBCUT Q8HR [facility] Last Admin: 11/23/18 06:05 Dose: 5,000 units Vancomycin HCl 750 mg/ Sodium (Chloride) 250 mls @ 166.667 mls/hr IVPB Q8H [facility] Insulin Human Lispro (Humalog*) 0 units SUBCUT [facility]; Protocol Last Admin: 11/23/18 08:35 Dose: 3 units Levothyroxine Sodium (Synthroid Tab*) 125 mcg PO 0600 [facility] Last Admin: 11/23/18 06:04 Dose: 125 mcg Lisinopril (Prinivil [facility]*) [facility] Admin: 11/23/18 08:37 Dose: 2.5 mg Non-Formulary Medication (Cabergoline) 0.5 mg PO MoFr@0900 [facility] Last Admin: 11/23/18 12:11 Dose: Not Given Ondansetron HCl (Zofran Inj*) 4 mg IV Q6H PRN PRN Reason: NAUSEA Ondansetron HCl (Zofran Odt Tab*) 4 mg PO Q6H PRN PRN Reason: NAUSEA Oxycodone/Acetaminophen (Percocet 5/325 Tab*) 1 tab PO Q3H PRN PRN Reason: PAIN - SEVERE Pharmacy Consult (Vancomycin Per Pharmacy*) 1 note FOLLOW UP .VANC PER PHARMACY [facility]; Protocol Pharmacy Profile Note (Vancomycin Trough Check) 1 note FOLLOW UP 1430 ONE Stop: 11/24/18 14:31 Primidone (Mysoline Tab(*)) 50 mg PO BID [facility] Last Admin: 11/23/18 08:37 Dose: 50 mg Tramadol HCl (Ultram*) 50 mg PO Q6H PRN PRN Reason: PAIN - MODERATE Vital Signs - 8 hr 11/23/18 11/23/18 11/23/18 07:21 07:41 11:05 Temperature 97.4 F 97.4 F Pulse Rate 60 81 Respiratory 14 14 16 Rate Blood Pressure 104/52 105/58 (mmHg) O2 Sat by Pulse 100 98 Oximetry Oxygen Devices in Use Now: None Appearance: Patient is a 68yo male who appears stated age and is sitting in the bed in [facility]. Eyes: No Scleral Icterus, PERRLA Ears/Nose/Mouth/Throat: NL Teeth, Lips, Gums, Clear Oropharnyx, Mucous Membranes Moist Neck: NL Appearance and Movements; NL JVP, Trachea Midline Respiratory: Symmetrical Chest Expansion and Respiratory Effort, Clear to Auscultation Cardiovascular: NL Sounds; No Murmurs; No JVD, RRR, No Edema Abdominal: NL Sounds; No Tenderness; No Distention, No Hepatosplenomegaly Lymphatic: No Cervical Adenopathy, No Axillary Adenopathy Extremities: No Edema, No Clubbing, Cyanosis Skin: No Nodules or Sclerosis, - - Open Wounds on RLE. Unchanged. Neurological: Alert and Oriented x 3, NL Muscle Strength and Tone, - - Minimal Distal sensation. Result Diagrams: 11/23/18 06:24 11/23/18 06:24 Microbiology and Other Data: Microbiology 11/21/18 18:39 Aerobic Blood Culture - Preliminary Blood Venous No Growth Day 1 Anaerobic Blood Culture - Preliminary No Growth Day 1 11/21/18 17:07 Aerobic Blood Culture - Preliminary Blood Venous No Growth Day 1 Anaerobic Blood Culture - Preliminary No Growth Day 1 Assess/Plan/Problems-Billing Assessment: Patient is a 68yo male with a PMH for DM II, PVD and chronic LE wounds who is admitted for concern for wound infection and possible revascularization and surgical debridement. - Patient Problems (1) Chronic wound of extremity Current Visit: Yes Status: Acute Code(s): LBN0594 - SNOMED Code(s): 080983689 Comment: - On RLE, S/P multiple procedures. - Contributed to by DM II and PVD - Pending possible revascularization and orthopedic input. - Pressure reduction - Grew Enterococcus with multiple resistances. Continue Vanco (2) DM II (diabetes mellitus, type II), controlled Current Visit: Yes Status: Acute Code(s): E11.9 - TYPE 2 DIABETES MELLITUS WITHOUT COMPLICATIONS SNOMED Code(s): 35765430 Comment: - SSI while inpatient instead of 70/30 - A1c 5.8% indicating very good control - Hold Metformin and Glipizide (3) PVD (peripheral vascular disease) Current Visit: Yes Status: Acute Code(s): I73.9 - PERIPHERAL VASCULAR DISEASE, UNSPECIFIED SNOMED Code(s): 232758559 Comment: - Rest Pain level PVD, Pending IR consult and possible revascularization - Poor to no pulses in B/L LE. - Pending IR recommendations for possible additonal antiplatelet agents - Complains of no claudication. - Continue Lipitor and Aspirin (4) HTN (hypertension) Current Visit: Yes Status: Acute Code(s): I10 - ESSENTIAL (PRIMARY) HYPERTENSION SNOMED Code(s): 69447123 Comment: - Normotensive, Continue Lisinopril (5) Prolactin secreting pituitary adenoma Current Visit: Yes Status: Acute Code(s): D35.2 - BENIGN NEOPLASM OF PITUITARY GLAND SNOMED Code(s): 296239296 Comment: - Pre-op pending current intervention - Continue Cabergoline MoFr (6) Full code status Current Visit: Yes Status: Acute Code(s): Z78.9 - OTHER SPECIFIED HEALTH STATUS SNOMED Code(s): 060396084 (7) DVT prophylaxis Current Visit: Yes Status: Acute Code(s): Z29.9 - ENCOUNTER FOR PROPHYLACTIC MEASURES, UNSPECIFIED SNOMED Code(s): 684041490 Comment: - Heparin SubQ Status and Disposition: Inpatient for possible surgical intervention. Disposition per Orthopedics.
[2018-11-23] MEDS: Vancomycin(*) 750 MG in NS 0.9% 250 ML* 250 ML IVPB SCH ×2 (16:39→22:55)
[2018-11-23] MEDS: Aspirin EC TAB* 81 MG TAB.EC PO SCH (20:52)
[2018-11-23] MEDS: Allopurinol TAB* 100 MG PO SCH (20:52)
[2018-11-24] MEDS: Levothyroxine TAB* 125 MCG TAB PO SCH (06:12)
[2018-11-24] MEDS: Heparin VIAL(*) 5000 UNITS/ML VIAL (FIVE THOUSAND) SUBCUT SCH ×3 (06:12→21:25)
[2018-11-24] MEDS: Vancomycin(*) 750 MG in NS 0.9% 250 ML* 250 ML IVPB SCH ×2 (06:13→16:26)
[2018-11-24] MEDS: Insulin LISPRO* 1 UNITS UNIT SUBCUT SCH ×3 (09:01→17:18)
[2018-11-24] MEDS: FLUoxetine CAP* 20 MG PO SCH (09:02)
[2018-11-24] MEDS: Atorvastatin* 80 MG TAB PO SCH (09:02)
[2018-11-24] MEDS: Lisinopril TAB* 5 MG PO SCH (09:02)
[2018-11-24] MEDS: Primidone TAB(*) 50 MG PO SCH ×2 (09:04→21:25)
--- NOTE | 2018-11-24 09:54 | PN ---
Subjective Date of Service: 11/24/18 Interval History: Patient is feeling well today. Patient denies F/C, N/V, abdominal pain, diarrhea (patient has had no BMs since yesterday afternoon), CP, SOB, dizziness , pain in his foot, or other pain. Family History: Unchanged from Admission Social History: Unchanged from Admission Past Medical History: Unchanged from Admission Objective Active Medications: Acetaminophen (Tylenol Tab*) 650 mg PO Q6H PRN PRN Reason: PAIN - MILD Allopurinol (Zyloprim Tab*) 200 mg PO BEDTIME [facility] Last Admin: 11/23/18 20:52 Dose: 200 mg Aspirin (Aspirin Ec Tab*) 81 mg PO BEDTIME [facility] Last Admin: 11/23/18 20:52 Dose: 81 mg Atorvastatin Calcium (Lipitor*) 80 mg PO QAM [facility] Last Admin: 11/24/18 09:02 Dose: 80 mg Dextrose (Dextrose 50% Vial 50 Ml*) 25 ml IV PUSH .FOR FS < 60 - SS PRN PRN Reason: FS < 60 Diphenhydramine HCl (Benadryl Iv*) 25 mg IV Q6H PRN PRN Reason: PRURITIS Diphenhydramine HCl (Benadryl Po*) 25 mg PO Q6H PRN PRN Reason: PRURITIS Fluoxetine HCl (Prozac Cap*) [facility] [place] Last Admin: 11/24/18 09:02 Dose: 40 mg Heparin Sodium (Porcine) (Heparin Vial(*)) 5,000 units SUBCUT Q8HR [facility] Last Admin: 11/24/18 06:12 Dose: 5,000 units Vancomycin HCl 750 mg/ Sodium (Chloride) 250 mls @ 166.667 mls/hr IVPB Q8H [facility] Last Admin: 11/24/18 06:13 Dose: 166.667 mls/hr Insulin Human Lispro (Humalog*) 0 units SUBCUT AC [facility]; Protocol Last Admin: 11/24/18 09:01 Dose: 3 units Levothyroxine Sodium (Synthroid Tab*) 125 mcg PO 0600 [facility] Last Admin: 11/24/18 06:12 Dose: 125 mcg Lisinopril (Prinivil Tab*) 2.5 mg PO QA[facility] [place] Last Admin: 11/24/18 09:02 Dose: 2.5 mg Non-Formulary Medication (Cabergoline) 0.5 mg PO MoFr@0900 [facility] Last Admin: 11/23/18 12:11 Dose: Not Given Ondansetron HCl (Zofran Inj*) 4 mg IV Q6H PRN PRN Reason: NAUSEA Ondansetron HCl (Zofran Odt Tab*) 4 mg PO Q6H PRN PRN Reason: NAUSEA Oxycodone/Acetaminophen (Percocet 5/325 Tab*) 1 tab PO Q3H PRN PRN Reason: PAIN - SEVERE Pharmacy Consult (Vancomycin Per Pharmacy*) 1 note FOLLOW UP .VANC PER PHARMACY [facility]; Protocol Pharmacy Profile Note (Vancomycin Trough Check) 1 note FOLLOW UP 1430 ONE Stop: 11/24/18 14:31 Primidone (Mysoline Tab(*)) 50 mg PO BID [facility] Last Admin: 11/24/18 09:04 Dose: 50 mg Tramadol HCl (Ultram*) 50 mg PO Q6H PRN PRN Reason: PAIN - MODERATE Vital Signs - 8 hr 11/24/18 11/24/18 02:58 07:22 Temperature 97.9 F 98.1 F Pulse Rate 61 66 Respiratory 16 Rate Blood Pressure 96/33 113/47 (mmHg) O2 Sat by Pulse 100 Oximetry Oxygen Devices in Use Now: None Appearance: Patient is a 68yo male who appears stated age and is sitting in the bed in [facility]. Eyes: No Scleral Icterus, PERRLA Ears/Nose/Mouth/Throat: NL Teeth, Lips, Gums, Clear Oropharnyx, Mucous Membranes Moist Neck: NL Appearance and Movements; NL JVP, Trachea Midline Respiratory: Symmetrical Chest Expansion and Respiratory Effort, Clear to Auscultation Cardiovascular: NL Sounds; No Murmurs; No JVD, RRR, No Edema Abdominal: NL Sounds; No Tenderness; No Distention, No Hepatosplenomegaly Lymphatic: No Cervical Adenopathy Extremities: No Edema, No Clubbing, Cyanosis Skin: No Nodules or Sclerosis, - - Right foot wrapped and not visualized today. Neurological: Alert and Oriented x 3, NL Sensation, NL Muscle Strength and Tone , - - CN II-XII intact. Result Diagrams: 11/23/18 06:24 11/23/18 06:24 Microbiology and Other Data: Microbiology 11/21/18 18:39 Aerobic Blood Culture - Preliminary Blood Venous No Growth Day 1 Anaerobic Blood Culture - Preliminary No Growth Day 1 11/21/18 17:07 Aerobic Blood Culture - Preliminary Blood Venous No Growth Day 1 Anaerobic Blood Culture - Preliminary No Growth Day 1 Assess/Plan/Problems-Billing Assessment: Patient is a 68yo male with a PMH for DM II, PVD and chronic LE wounds who is admitted for concern for wound infection and possible revascularization and surgical debridement. - Patient Problems (1) Chronic wound of extremity Current Visit: Yes Status: Acute Code(s): [id number] - SNOMED Code(s): 433299386 Comment: - On RLE, S/P multiple procedures. - Contributed to by DM II and PVD - Pending possible revascularization and orthopedic input. - Pressure reduction - Grew Enterococcus with multiple resistances. Continue Vanco (2) DM II (diabetes mellitus, type II), controlled Current Visit: Yes Status: Acute Code(s): E11.9 - TYPE 2 DIABETES MELLITUS WITHOUT COMPLICATIONS SNOMED Code(s): 44229598 Comment: - SSI while inpatient instead of 70/30 - A1c 5.8% indicating very good control - Hold Metformin and Glipizide (3) PVD (peripheral vascular disease) Current Visit: Yes Status: Acute Code(s): I73.9 - PERIPHERAL VASCULAR DISEASE, UNSPECIFIED SNOMED Code(s): 945932149 Comment: - Rest Pain level PVD, Pending IR consult and possible revascularization - Poor to no pulses in B/L LE. - Pending IR recommendations for possible additonal antiplatelet agents - Complains of no claudication. - Continue Lipitor and Aspirin (4) HTN (hypertension) Current Visit: Yes Status: Acute Code(s): I10 - ESSENTIAL (PRIMARY) HYPERTENSION SNOMED Code(s): 17147075 Comment: - Normotensive, Continue Lisinopril (5) Prolactin secreting pituitary adenoma Current Visit: Yes Status: Acute Code(s): D35.2 - BENIGN NEOPLASM OF PITUITARY GLAND SNOMED Code(s): 067904763 Comment: - Pre-op pending current intervention - Continue Cabergoline MoFr (6) Full code status Current Visit: Yes Status: Acute Code(s): Z78.9 - OTHER SPECIFIED HEALTH STATUS SNOMED Code(s): 164285285 (7) DVT prophylaxis Current Visit: Yes Status: Acute Code(s): Z29.9 - ENCOUNTER FOR PROPHYLACTIC MEASURES, UNSPECIFIED SNOMED Code(s): 861089181 Comment: - Heparin SubQ Status and Disposition: Inpatient for possible surgical intervention. Disposition per Orthopedics.
--- NOTE | 2018-11-24 12:07 | PN ---
Progress Note - Progress Note Date of Service: 11/24/18 Note: Patient resting comfortably in bed breathing easily. He denies CP, SOB, dizziness or fever. He reports feeling well with a healthy appetite. Dressing C/ D/I and taken down today. No active drainage noted from wounds. Minimal errythema. Granulation tissue with some maceration noted. Betadine, gauze, cling and Juventino applied. Plan to possibly go to OR for renewed debridement. Continue abx and medical management as per medicine. We will continue to monitor.
[2018-11-24] MEDS ORDERED: Vancomycin Trough Check NOTE FOLLOW UP ONE (14:30)
[2018-11-24 15:04] LABS: EGFR African American 89.9 (>60); EGFR Non-African American 74.3 (>60)
[2018-11-24] MEDS: Aspirin EC TAB* 81 MG TAB.EC PO SCH (21:25)
[2018-11-24] MEDS: Allopurinol TAB* 100 MG PO SCH (21:25)
[2018-11-25] MEDS: Heparin VIAL(*) 5000 UNITS/ML VIAL (FIVE THOUSAND) SUBCUT SCH ×3 (05:46→21:02)
[2018-11-25] MEDS: Levothyroxine TAB* 125 MCG TAB PO SCH (05:46)
[2018-11-25] MEDS: Vancomycin(*) 750 MG in NS 0.9% 250 ML* 250 ML IVPB SCH ×2 (05:51→17:29)
[2018-11-25] MEDS: Atorvastatin* 80 MG TAB PO SCH (08:50)
[2018-11-25] MEDS: metFORMIN* 1,000 MG TAB PO SCH ×2 (08:51→17:29)
[2018-11-25] MEDS: Primidone TAB(*) 50 MG PO SCH ×2 (08:51→21:02)
[2018-11-25] MEDS: FLUoxetine CAP* 20 MG PO SCH (08:51)
[2018-11-25] MEDS: Lisinopril TAB* 5 MG PO SCH (08:51)
[2018-11-25] MEDS: Insulin LISPRO* 1 UNITS UNIT SUBCUT SCH ×4 (08:53→21:25)
--- NOTE | 2018-11-25 09:46 | PN ---
Subjective Date of Service: 11/25/18 Interval History: Patient is feeling well today. Patient denies CP, SOB, dizziness, pain, F/C, Dizziness. Patient has had no more loose BMs. Family History: Unchanged from Admission Social History: Unchanged from Admission Past Medical History: Unchanged from Admission Objective Active Medications: Acetaminophen (Tylenol Tab*) 650 mg PO Q6H PRN PRN Reason: PAIN - MILD Allopurinol (Zyloprim Tab*) 200 mg PO BEDTIME [facility] Last Admin: 11/24/18 21:25 Dose: 200 mg Aspirin (Aspirin Ec Tab*) 81 mg PO BEDTIME [facility] Last Admin: 11/24/18 21:25 Dose: 81 mg Atorvastatin Calcium (Lipitor*) 80 mg PO QAM [facility] Last Admin: 11/25/18 08:50 Dose: 80 mg Dextrose (Dextrose 50% Vial 50 Ml*) 25 ml IV PUSH .FOR FS < 60 - SS PRN PRN Reason: FS < 60 Diphenhydramine HCl (Benadryl Iv*) 25 mg IV Q6H PRN PRN Reason: PRURITIS Diphenhydramine HCl (Benadryl Po*) 25 mg PO Q6H PRN PRN Reason: PRURITIS Fluoxetine HCl (Prozac Cap*) 40 mg PO QAM [facility] Last Admin: 11/25/18 08:51 Dose: 40 mg Heparin Sodium (Porcine) (Heparin Vial(*)) 5,000 units SUBCUT Q8HR [facility] Last Admin: 11/25/18 05:46 Dose: 5,000 units Vancomycin HCl 750 mg/ Sodium (Chloride) 250 mls @ 166.667 mls/hr IVPB Q12H [facility] Last Admin: 11/25/18 05:51 Dose: 166.667 mls/hr Insulin Human Lispro (Humalog*) 0 units SUBCUT AC [facility]; Protocol Last Admin: 11/25/18 08:53 Dose: 6 units Levothyroxine Sodium (Synthroid Tab*) 125 mcg PO 0600 [facility] Last Admin: 11/25/18 05:46 Dose: 125 mcg Lisinopril (Prinivil Tab*) 2.5 mg PO QAM [facility] Last Admin: 11/25/18 08:51 Dose: 2.5 mg Metformin HCl (Glucophage*) 1,000 mg PO BID WITH MEALS [facility] Last Admin: 11/25/18 08:51 Dose: 1,000 mg Non-Formulary Medication (Cabergoline) 0.5 mg PO MoFr@0900 [facility] Last Admin: 11/23/18 12:11 Dose: Not Given Ondansetron HCl (Zofran Inj*) 4 mg IV Q6H PRN PRN Reason: NAUSEA Ondansetron HCl (Zofran Odt Tab*) 4 mg PO Q6H PRN PRN Reason: NAUSEA Oxycodone/Acetaminophen (Percocet 5/325 Tab*) 1 tab PO Q3H PRN PRN Reason: PAIN - SEVERE Pharmacy Consult (Vancomycin Per Pharmacy*) 1 note FOLLOW UP .VANC PER PHARMACY [facility]; Protocol Pharmacy Profile Note (Vancomycin Trough Check) 1 note FOLLOW UP 529 ONE Stop: 11/26/18 05:31 Primidone (Mysoline Tab(*)) 50 mg PO BID [facility] Last Admin: 11/25/18 08:51 Dose: 50 mg Tramadol HCl (Ultram*) 50 mg PO Q6H PRN PRN Reason: PAIN - MODERATE Vital Signs - 8 hr 11/25/18 11/25/18 11/25/18 03:13 07:38 08:00 Temperature 97.9 F 97.5 F Pulse Rate 62 62 Respiratory 20 18 18 Rate Blood Pressure 103/54 117/61 (mmHg) O2 Sat by Pulse 100 100 Oximetry Oxygen Devices in Use Now: None Appearance: Patient is a 68yo male who appears stated age and is sitting in the bed in [facility]. Eyes: No Scleral Icterus, PERRLA Ears/Nose/Mouth/Throat: NL Teeth, Lips, Gums, Clear Oropharnyx, Mucous Membranes Moist Neck: NL Appearance and Movements; NL JVP, Trachea Midline Respiratory: Symmetrical Chest Expansion and Respiratory Effort, Clear to Auscultation Cardiovascular: NL Sounds; No Murmurs; No JVD, RRR, No Edema, - - No palpable pulses in B/L LE. Abdominal: NL Sounds; No Tenderness; No Distention, No Hepatosplenomegaly Lymphatic: No Cervical Adenopathy Extremities: No Clubbing, Cyanosis, - - Right Foot Dressed and not visualized. Skin: No Nodules or Sclerosis Neurological: Alert and Oriented x 3, NL Sensation, NL Muscle Strength and Tone , - - CN II-XII intact. Result Diagrams: 11/23/18 06:24 11/24/18 14:22 Microbiology and Other Data: Microbiology 11/21/18 18:39 Aerobic Blood Culture - Preliminary Blood Venous No Growth Day 1 Anaerobic Blood Culture - Preliminary No Growth Day 1 11/21/18 17:07 Aerobic Blood Culture - Preliminary Blood Venous No Growth Day 1 Anaerobic Blood Culture - Preliminary No Growth Day 1 Assess/Plan/Problems-Billing Assessment: Patient is a 68yo male with a PMH for DM II, PVD and chronic LE wounds who is admitted for concern for wound infection and possible revascularization and surgical debridement. - Patient Problems (1) Chronic wound of extremity Current Visit: Yes Status: Acute Code(s): [id number] - SNOMED Code(s): 352103150 Comment: - On RLE, S/P multiple procedures. - Contributed to by DM II and PVD - Pending possible revascularization and orthopedic procedure - Pressure reduction - Grew Enterococcus with multiple resistances. Continue Vanco (2) DM II (diabetes mellitus, type II), controlled Current Visit: Yes Status: Acute Code(s): E11.9 - TYPE 2 DIABETES MELLITUS WITHOUT COMPLICATIONS SNOMED Code(s): 74705210 Comment: - SSI while inpatient instead of 70/30 - A1c 5.8% indicating very good control - Resume Metformin, monitor for diarrhea - Continue to hold glipizide. (3) PVD (peripheral vascular disease) Current Visit: Yes Status: Acute Code(s): I73.9 - PERIPHERAL VASCULAR DISEASE, UNSPECIFIED SNOMED Code(s): 710037381 Comment: - Rest Pain level PVD, Pending IR consult and possible revascularization - Poor to no pulses in B/L LE. - Pending IR recommendations for possible additonal antiplatelet agents - Complains of no claudication. - Continue Lipitor and Aspirin (4) HTN (hypertension) Current Visit: Yes Status: Acute Code(s): I10 - ESSENTIAL (PRIMARY) HYPERTENSION SNOMED Code(s): 23251015 Comment: - Normotensive, Continue Lisinopril (5) Prolactin secreting pituitary adenoma Current Visit: Yes Status: Acute Code(s): D35.2 - BENIGN NEOPLASM OF PITUITARY GLAND SNOMED Code(s): 933745993 Comment: - Pre-op pending current intervention - Continue Cabergoline MoFr (6) Full code status Current Visit: Yes Status: Acute Code(s): Z78.9 - OTHER SPECIFIED HEALTH STATUS SNOMED Code(s): 938050186 (7) DVT prophylaxis Current Visit: Yes Status: Acute Code(s): Z29.9 - ENCOUNTER FOR PROPHYLACTIC MEASURES, UNSPECIFIED SNOMED Code(s): 686081223 Comment: - Heparin SubQ Status and Disposition: Inpatient for possible surgical intervention. Disposition per Orthopedics.
[2018-11-25] MEDS: Allopurinol TAB* 100 MG PO SCH (21:02)
[2018-11-25] MEDS: Aspirin EC TAB* 81 MG TAB.EC PO SCH (21:02)
[2018-11-26] MEDS ORDERED: Vancomycin Trough Check NOTE FOLLOW UP ONE (05:30)
[2018-11-26] MEDS: Heparin VIAL(*) 5000 UNITS/ML VIAL (FIVE THOUSAND) SUBCUT SCH ×3 (06:08→21:59)
[2018-11-26 06:10] LABS: EGFR Non-African American 76.1 (>60); Vancomycin Trough 17.4 mcg/mL
[2018-11-26] MEDS: Levothyroxine TAB* 125 MCG TAB PO SCH (06:10)
[2018-11-26] MEDS: Vancomycin(*) 750 MG in NS 0.9% 250 ML* 250 ML IVPB SCH ×2 (06:15→17:31)
[2018-11-26] MEDS: metFORMIN* 1,000 MG TAB PO SCH ×2 (08:11→17:30)
[2018-11-26] MEDS: FLUoxetine CAP* 20 MG PO SCH (08:11)
[2018-11-26] MEDS: Lisinopril TAB* 5 MG PO SCH (08:11)
[2018-11-26] MEDS: Atorvastatin* 80 MG TAB PO SCH (08:11)
[2018-11-26] MEDS: Primidone TAB(*) 50 MG PO SCH ×2 (08:12→21:56)
[2018-11-26] MEDS: Insulin LISPRO* 1 UNITS UNIT SUBCUT SCH ×4 (08:56→21:57)
[2018-11-26] MEDS: CABERGOLINE 0.5 MG PO SCH (09:05)
--- NOTE | 2018-11-26 09:59 | CONSULT ---
Consult Consult: Date of Service: 11/26/18 Consulting Service: Hospitalist (Greg THURMAN) Reason for Consultation: Non-Healing right foot amputation site in a vasculopath Focused HPI: I first met Tarun in my vascular and interventional radiology clinic 2015 when he presented with symptoms characteristic of claudication and nighttime rest pain. I recommended angiography with potential revascularization at that time, but the patient determined the symptoms were not severe enough to pursue treatment. I submitted an order for angiography but it appears the patient declined scheduling. As his diabetic neuropathy progressed he had less pain in the feet and lower legs and therefore did not want to pursue endovascular therapy. This is a 68-year-old man with vascular disease, diabetes, who had had a right great toe osteomyelitis followed by surgeons and Dr. Tracy in [place] and had a partial toe amputation, long course of IV antibiotics, ceftriaxone by a right upper extremity PICC that he apparently tolerated well. Dr. Damon completed a right first ray amputation 10/22/18. Wound culture grew Enterococcus faecium. He notes he had been on ceftriaxone over the last couple of weeks, but because of a wound at the amputation site and some necrotic changes in the skin on the lateral foot, he came [facility] 11/15/18, his white count was 14,000. PAST MEDICAL HISTORY: 1. Obesity. 2. Insulin-dependent diabetes, type 2. 3. Peripheral neuropathy. 4. Peripheral vascular disease with abnormal NGOZI right greater than left. 5. Chronic osteomyelitis status post right first ray amputation October 2018. 6. Cognitive impairment. 7. Pituitary tumor. 8. Hypothyroidism. 9. Gout. 10. Hyperlipidemia. 11. Tremor. 12. Hypertension. (HOME) MEDICATIONS: 1. Tylenol. 2. Allopurinol. 3. Aspirin. 4. Lipitor. 5. Cabergoline. 6. Fluoxetine. 7. Heparin subcutaneous injection. 8. Levothyroxine. 9. Zofran as needed. 10. Oxycodone as needed. 11. Primidone. 12. Vancomycin 1250 mg every 8 hours. ALLERGIES: No known drug allergies. FAMILY HISTORY: Mother had lung cancer. Father had brain cancer. SOCIAL HISTORY: He lives in [place]. He is a non-smoker, does not drink. REVIEW OF SYSTEMS: All negative except as noted above to a 12 point review of systems. 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 MECHANIC 1+ pulses B/L pop Cannot palpate pedal pulses Right foot is dressed with sterile gauze and JEROME (not removed) Relevant Imaging: Patient Name: TARUN MORRISON Medical Record#: [id number] Ordering Physician: Ravin Damon MD Acct.#: [id number] : 1950 Age: 68 Sex: M Location: IMAGING Exam Date: 11/15/18 ADM Status: REG REF Order Information: VL ANK/ BRACHIAL INDICES Accession Number: [id number] CPT: 22677 INDICATION: Poor wound healing at right foot partial amputation site COMPARISON: Similar examination August 28, 2015 TECHNIQUE: Ankle-brachial indices and Doppler tracings were obtained of the lower extremities bilaterally. Volume pulse recordings were acquired at the bilateral ankles. REPORT: Ankle-brachial indices: Right: Value (SBP) Index Brachial: 126 Posterior tibialis: 75 0.59 Dorsalis pedis: 77 0.61 Left: Value (SBP) Index Brachial: 127 Posterior tibialis: 86 0.68 Dorsalis pedis: 103 0.81 Doppler waveforms (acquired at rest): In the interrogated lower extremity arteries, Doppler waveforms are triphasic in the left posterior tibial artery and monophasic in all other distributions. Volume pulse recordings (acquired at rest): Volume pulse recordings, measured at the bilateral ankles, measure 34 mm on the right and 13 mm in the left. IMPRESSION: ABIs are consistent with claudication and/or rest pain with notably reduced amplitude and arranged arterial waveforms. Overall the degree of arterial insufficiency appears worse in the right leg than the left. Particularly if this patient is suffering from lower extremity chronic wounds, further vascular work up is likely indicated. <Electronically signed by Clayton Genao MD in [place]> 11/15/182028 Dictated By: Clayton Genao MD Dictated Date/Time: 11/15/18 1314 [facility] Patient Name:TARUN MORRISON MR:[id number] : 1950 CTA w/runoff 09/10/15 IMPRESSION: 1. Diffuse calcified and noncalcified vasculopathy as described in the body the report. The more severe and/or clinically relevant findings are as follows: * Mostly noncalcified atherosclerotic plaque narrows the lumen of the proximal superior mesenteric artery by at least 50%. * Bilaterally the superficial femoral arteries exhibit multiple foci of high- grade stenosis, more severe at the left where there is high-grade stenosis at the proximal portion of the artery. Distally both SFA exhibit high-grade stenosis as they pass into Fabio's canal. * 2 vessel runoff provided by the anterior tibial artery and peroneal artery at the bilateral lower legs. Bilaterally the posterior tibial artery appears to be mostly occluded at its origin with distal reconstitution and weak filling of the plantar branch arteries. 2. 2 cm low-density nonenhancing focus in the anterior aspect of the spleen of doubtful clinical significance. There is no previous CT imaging to comment on chronicity. This finding can be further evaluated on a nonemergent basis with ultrasound of the spleen. 3. Likely benign left adrenal adenoma as described above. 4. Additional chronic and degenerative findings as described in body of the report. <Electronically signed by Clayton Genao MD in [place]> 09/11/151646 Dictated By: Clayton Genao MD Dictated Date/Time: 09/11/151646 2 of 3 Relevant Labs: Laboratory Tests 11/21/18 11/21/18 11/23/18 17:07 17:07 06:24 WBC 14.5 H 9.3 Hgb 13.1 L 12.7 L Hct 40 L 38 L INR (Anticoag Therapy) 1.09 BUN Creatinine Est GFR (Non-Af Amer) POC Glucose (mg/dL) 11/25/18 11/25/18 11/25/18 07:30 10:57 16:27 WBC Hgb Hct INR (Anticoag Therapy) BUN Creatinine Est GFR (Non-Af Amer) POC Glucose (mg/dL) 242 H 199 H 213 H 11/25/18 11/26/18 11/26/18 19:40 05:45 08:10 WBC Hgb Hct INR (Anticoag Therapy) BUN 17 Creatinine 0.98 Est GFR (Non-Af Amer) 76.1 POC Glucose (mg/dL) 223 H 183 H Summary: 68 YOM, known to the IR clinic since 2016, with diabetes related vasculopathy predominantly afflicting the infrapopliteal arteries. Revascularization and/or flow augementation should support wound healing. Plan/Recommendations: 1. Arterial duplex sonography of RLE with careful attention to infrapopliteal arteries. 2. Likely angiography RLE either during this admission or as an outpatient in the near future. 3. Tight diabetes control and wound care.
--- NOTE | 2018-11-26 13:41 | PN ---
Progress Note - Progress Note Date of Service: 11/26/18 SOAP: Subjective: [Pt was seen today sitting in chair. He states that he feels he is doing much better with pain. He states that the foot looks better since starting abx. ] Objective: [General: Pt is alert and oriented x3. NAD. MSK, RLE: Right foot reveals a large wound consistent with a non healing closure of the first ray amputation. There is also a small area the lateral side of the foot measuring about 1cm large by 2 cm long that is becoming black. He is able to wiggle his remaining toes. ] Vital Signs Temp 96.8 F 11/26/18 11:37 Pulse 82 11/26/18 11:37 Resp 16 11/26/18 11:37 BP 105/61 11/26/18 11:37 Pulse Ox 99 11/26/18 11:37 Intake & Output 11/25/18 11/26/18 11/26/18 18:59 06:59 18:59 Intake Total 945 460 720 Output Total 300 Balance 645 460 720 Intake: IV Fluids 20 NS (0.9%) 20 IVPB 260 ABX - VANCOMYCIN 260 Oral 945 180 720 Output: Urine 300 Other: Estimated Void Medium # Bowel Movements 0 0 1 Estimated Stool Amount Large # Voids 2 1 Assessment: [Non healing wounds s/p right foot 1st ray amputation] Plan: [Dr. Genao to assess pt for possible re vascularization. Continue with current abx. Continue with current pain medication We will continue to monitor the pts progress. ]
--- NOTE | 2018-11-26 16:14 | PN ---
Subjective Date of Service: 11/26/18 Interval History: Patient is feeling well. Patient denies F/C, N/V, abdominal pain, CP, SOB, pain in foot, or other pain. Patient has more loose BMs, but only 2 in the last 24hrs. Family History: Unchanged from Admission Social History: Unchanged from Admission Past Medical History: Unchanged from Admission Objective Active Medications: Acetaminophen (Tylenol Tab*) 650 mg PO Q6H PRN PRN Reason: PAIN - MILD Allopurinol (Zyloprim Tab*) 200 mg PO BEDTIME [facility] Last Admin: 11/25/18 21:02 Dose: 200 mg Aspirin (Aspirin Ec Tab*) 81 mg PO BEDTIME [facility] Last Admin: 11/25/18 21:02 Dose: 81 mg Atorvastatin Calcium (Lipitor*) 80 mg PO QAM [facility] Last Admin: 11/26/18 08:11 Dose: 80 mg Dextrose (Dextrose 50% Vial 50 Ml*) 25 ml IV PUSH .FOR FS < 60 - SS PRN PRN Reason: FS < 60 Diphenhydramine HCl (Benadryl Iv*) 25 mg IV Q6H PRN PRN Reason: PRURITIS Diphenhydramine HCl (Benadryl Po*) 25 mg PO Q6H PRN PRN Reason: PRURITIS [facility]*) [facility] [place] [facility] Admin: 11/26/18 08:11 Dose: 40 mg Heparin Sodium (Porcine) (Heparin Vial(*)) 5,000 units SUBCUT Q8HR [facility] Last Admin: 11/26/18 14:31 Dose: 5,000 units Vancomycin HCl 750 mg/ Sodium (Chloride) 250 mls @ 166.667 mls/hr IVPB Q12H [facility] Last Admin: 11/26/18 06:15 Dose: 166.667 mls/hr Insulin Human Lispro (Humalog*) 0 units SUBCUT ACHS [facility]; Protocol Last Admin: 11/26/18 14:31 Dose: 6 units Levothyroxine Sodium (Synthroid Tab*) 125 mcg PO 0600 [facility] Last Admin: 11/26/18 06:10 Dose: 125 mcg Lisinopril (Prinivil Tab*) [facility] [place] Last Admin: 11/26/18 08:11 Dose: 2.5 mg Metformin HCl (Glucophage*) 1,000 mg PO BID WITH MEALS [facility] Last Admin: 11/26/18 08:11 Dose: 1,000 mg Pto: Cabergoline 0.5 (Mg Tabs) 0.5 mg PO MoFr@0900 [facility] Last Admin: 11/26/18 09:05 Dose: 0.5 mg Ondansetron HCl (Zofran Inj*) 4 mg IV Q6H PRN PRN Reason: NAUSEA Ondansetron HCl (Zofran Odt Tab*) 4 mg PO Q6H PRN PRN Reason: NAUSEA Oxycodone/Acetaminophen (Percocet 5/325 Tab*) 1 tab PO Q3H PRN PRN Reason: PAIN - SEVERE Pharmacy Consult (Vancomycin Per Pharmacy*) 1 note FOLLOW UP .VANC PER PHARMACY [facility]; Protocol Pharmacy Profile Note (Vancomycin Trough Check) 1 note FOLLOW UP 529 ONE Stop: 11/29/18 05:31 Primidone (Mysoline Tab(*)) 50 mg PO BID [facility] Last Admin: 11/26/18 08:12 Dose: 50 mg Tramadol HCl (Ultram*) 50 mg PO Q6H PRN PRN Reason: PAIN - MODERATE Vital Signs - 8 hr 11/26/18 11:37 Temperature 96.8 F Pulse Rate 82 Respiratory 16 Rate Blood Pressure 105/61 (mmHg) O2 Sat by Pulse 99 Oximetry Oxygen Devices in Use Now: None Appearance: Patient is a 68yo male who appears stated age and is sitting in the bed in [facility]. Eyes: No Scleral Icterus, PERRLA Ears/Nose/Mouth/Throat: NL Teeth, Lips, Gums, Clear Oropharnyx, Mucous Membranes Moist Neck: NL Appearance and Movements; NL JVP, Trachea Midline Respiratory: Symmetrical Chest Expansion and Respiratory Effort, Clear to Auscultation Cardiovascular: NL Sounds; No Murmurs; No JVD, RRR, No Edema Abdominal: NL Sounds; No Tenderness; No Distention, No Hepatosplenomegaly Lymphatic: No Cervical Adenopathy Extremities: No Clubbing, Cyanosis, - - Right foot with mostly dry open areas on the previous ray amputation and unchanged necrosis on the lateral aspect. Skin: No Nodules or Sclerosis Neurological: Alert and Oriented x 3, NL Sensation, NL Muscle Strength and Tone , - - CN II-XII intact. Result Diagrams: 11/23/18 06:24 11/26/18 05:45 Microbiology and Other Data: Microbiology 11/21/18 18:39 Aerobic Blood Culture - Preliminary Blood Venous No Growth Day 1 Anaerobic Blood Culture - Preliminary No Growth Day 1 11/21/18 17:07 Aerobic Blood Culture - Preliminary Blood Venous No Growth Day 1 Anaerobic Blood Culture - Preliminary No Growth Day 1 Assess/Plan/Problems-Billing Assessment: Patient is a 68yo male with a PMH for DM II, PVD and chronic LE wounds who is admitted for concern for wound infection and possible revascularization and surgical debridement. - Patient Problems (1) Chronic wound of extremity Current Visit: Yes Status: Acute Code(s): [id number] - SNOMED Code(s): 649313337 Comment: - On RLE, S/P multiple procedures. - Contributed to by DM II and PVD - Pending possible revascularization and orthopedic procedure - Pressure reduction - Grew Enterococcus with multiple resistances. Continue Vanco (2) DM II (diabetes mellitus, type II), controlled Current Visit: Yes Status: Acute Code(s): E11.9 - TYPE 2 DIABETES MELLITUS WITHOUT COMPLICATIONS SNOMED Code(s): 80355106 Comment: - SSI while inpatient instead of 70/30 - A1c 5.8% indicating very good control - Resume Metformin, monitor for diarrhea - Continue to hold glipizide. (3) PVD (peripheral vascular disease) Current Visit: Yes Status: Acute Code(s): I73.9 - PERIPHERAL VASCULAR DISEASE, UNSPECIFIED SNOMED Code(s): 227136837 Comment: - Rest Pain level PVD, Pending IR consult and possible revascularization - Poor to no pulses in B/L LE. - Pending IR recommendations for possible additonal antiplatelet agents - Complains of no claudication. - Continue Lipitor and Aspirin - Arterial Doppler pending per IR. (4) HTN (hypertension) Current Visit: Yes Status: Acute Code(s): I10 - ESSENTIAL (PRIMARY) HYPERTENSION SNOMED Code(s): 74581070 Comment: - Normotensive, Continue Lisinopril (5) Prolactin secreting pituitary adenoma Current Visit: Yes Status: Acute Code(s): D35.2 - BENIGN NEOPLASM OF PITUITARY GLAND SNOMED Code(s): 065702760 Comment: - Pre-op pending current intervention - Continue Cabergoline MoFr (6) Full code status Current Visit: Yes Status: Acute Code(s): Z78.9 - OTHER SPECIFIED HEALTH STATUS SNOMED Code(s): 168061756 (7) DVT prophylaxis Current Visit: Yes Status: Acute Code(s): Z29.9 - ENCOUNTER FOR PROPHYLACTIC MEASURES, UNSPECIFIED SNOMED Code(s): 840484672 Comment: - Heparin SubQ Status and Disposition: Inpatient for possible surgical intervention. Disposition per Orthopedics.
[2018-11-26] MEDS: Allopurinol TAB* 100 MG PO SCH (21:56)
[2018-11-26] MEDS: Aspirin EC TAB* 81 MG TAB.EC PO SCH (21:56)
[2018-11-27] MEDS: Heparin VIAL(*) 5000 UNITS/ML VIAL (FIVE THOUSAND) SUBCUT SCH ×3 (05:56→21:05)
[2018-11-27] MEDS: Vancomycin(*) 750 MG in NS 0.9% 250 ML* 250 ML IVPB SCH ×2 (06:11→18:33)
[2018-11-27] MEDS: Levothyroxine TAB* 125 MCG TAB PO SCH (06:11)
[2018-11-27 06:57] LABS: Calcium 9.2 mg/dL (8.6-10.3); Potassium 4.2 mmol/L (3.5-5.0)
[2018-11-27 07:03] LABS: BUN/Creatinine Ratio 19.6 (8-20); EGFR Non-African American 81.8 (>60)
[2018-11-27] MEDS: Insulin LISPRO* 1 UNITS UNIT SUBCUT SCH ×4 (07:53→21:05)
[2018-11-27] MEDS: metFORMIN* 1,000 MG TAB PO SCH ×2 (07:53→18:22)
[2018-11-27] MEDS: Lisinopril TAB* 5 MG PO SCH (08:04)
[2018-11-27] MEDS: Primidone TAB(*) 50 MG PO SCH ×2 (08:04→21:04)
[2018-11-27] MEDS: Atorvastatin* 80 MG TAB PO SCH (08:06)
[2018-11-27] MEDS: FLUoxetine CAP* 20 MG PO SCH (08:06)
[2018-11-27] MEDS ORDERED: Iodixanol 320 (CONTRAST) 100 ML SDV ONE ×2 (12:01→13:27)
[2018-11-27] MEDS ORDERED: Lidocaine 1% INJ* 10 MG/ML 30 ML SDV ONE (12:01)
[2018-11-27] MEDS ORDERED: Iohexol 350 (CONTRAST) 200 ML MDV IV ONE (12:01)
[2018-11-27] MEDS ORDERED: Heparin 2 UNITS/ML IVPREMIX* 2,000 ML IV ONE (12:01)
[2018-11-27] MEDS ORDERED: fentaNYL* 50 MCG/ML 2 ML VIAL (100 MCG VIAL) ONE ×3 (12:29→16:13)
[2018-11-27] MEDS ORDERED: Midazolam* 1 MG/ML 5 ML VIAL (5 MG) ONE (12:30)
[2018-11-27] MEDS ORDERED: Heparin(*) 1000 UNIT/ML 10 ML VIAL CATH LAB IV ONE (13:13)
[2018-11-27] MEDS ORDERED: nitroGLYCERIN DRIP* 25,000 MCG/250 ML BTL ONE (13:27)
[2018-11-27] MEDS ORDERED: VERAPAMIL 2.5 MG/ML 2 ML VIAL ** 5 mg/2 ml ONE ×2 (14:12→15:04)
[2018-11-27] MEDS ORDERED: Heparin 2 UNITS/ML IVPREMIX* 1,000 ML IV ONE (15:12)
--- NOTE | 2018-11-27 16:09 | PN ---
Subjective Date of Service: 11/27/18 Interval History: Patient seen and examined. Seems somewhat frustrated by his circumstances and wishes to proceed with intervention for his foot. Denies fever or chills, no pain in foot, no SOB or chest pains. No further complaints. Family History: Unchanged from Admission Social History: Unchanged from Admission Past Medical History: Unchanged from Admission Objective Active Medications: Acetaminophen (Tylenol Tab*) 650 mg PO Q6H PRN PRN Reason: PAIN - MILD Allopurinol (Zyloprim Tab*) 200 mg PO BEDTIME [facility] Last Admin: 11/26/18 21:56 Dose: 200 mg Aspirin (Aspirin Ec Tab*) 81 mg PO BEDTIME [facility] Last Admin: 11/26/18 21:56 Dose: 81 mg Atorvastatin Calcium (Lipitor*) 80 mg PO QAM [facility] Last Admin: 11/27/18 08:06 Dose: 80 mg Dextrose (Dextrose 50% Vial 50 Ml*) 25 ml IV PUSH .FOR FS < 60 - SS PRN PRN Reason: FS < 60 Diphenhydramine HCl (Benadryl Iv*) 25 mg IV Q6H PRN PRN Reason: PRURITIS Diphenhydramine HCl (Benadryl Po*) 25 mg PO Q6H PRN PRN Reason: PRURITIS Fluoxetine HCl (Prozac Cap*) 40 mg PO QAM [facility] Last Admin: 11/27/18 08:06 Dose: 40 mg Heparin Sodium (Porcine) (Heparin Vial(*)) 5,000 units SUBCUT Q8HR [facility] Last Admin: 11/27/18 15:03 Dose: Not Given Vancomycin HCl 750 mg/ Sodium (Chloride) 250 mls @ 166.667 mls/hr IVPB Q12H [facility] Last Admin: 11/27/18 06:11 Dose: 166.667 mls/hr Insulin Human Lispro (Humalog*) 0 units SUBCUT ACHS [facility]; Protocol Last Admin: 11/27/18 15:02 Dose: Not Given Levothyroxine Sodium (Synthroid Tab*) 125 mcg PO 0600 [facility] Last Admin: 11/27/18 06:11 Dose: 125 mcg Lisinopril (Prinivil Tab*) 2.5 mg PO QAM [facility] Last Admin: 11/27/18 08:04 Dose: 2.5 mg Metformin HCl (Glucophage*) 1,000 mg PO BID WITH MEALS [facility] Last Admin: 11/27/18 07:53 Dose: Not Given Pto: Cabergoline 0.5 (Mg Tabs) 0.5 mg PO MoFr@0900 [facility] Last Admin: 11/26/18 09:05 Dose: 0.5 mg Ondansetron HCl (Zofran Inj*) 4 mg IV Q6H PRN PRN Reason: NAUSEA Ondansetron HCl (Zofran Odt Tab*) 4 mg PO Q6H PRN PRN Reason: NAUSEA Oxycodone/Acetaminophen (Percocet 5/325 Tab*) 1 tab PO Q3H PRN PRN Reason: PAIN - SEVERE Pharmacy Consult (Vancomycin Per Pharmacy*) 1 note FOLLOW UP .VANC PER PHARMACY [facility]; Protocol Pharmacy Profile Note (Vancomycin Trough Check) 1 note FOLLOW UP 529 ONE Stop: 11/29/18 05:31 Primidone (Mysoline Tab(*)) 50 mg PO BID [facility] Last Admin: 11/27/18 08:04 Dose: 50 mg Tramadol HCl (Ultram*) 50 mg PO Q6H PRN PRN Reason: PAIN - MODERATE Vital Signs - 8 hr 11/27/18 11/27/18 11/27/18 11:06 11:08 12:01 Respiratory 17 15 14 Rate Blood Pressure 124/58 (mmHg) Oxygen Devices in Use Now: None Appearance: alert, NAD Eyes: PERRLA Ears/Nose/Mouth/Throat: Mucous Membranes Moist Neck: NL Appearance and Movements; NL JVP, Trachea Midline Respiratory: Symmetrical Chest Expansion and Respiratory Effort, Clear to Auscultation Cardiovascular: NL Sounds; No Murmurs; No JVD, RRR Abdominal: NL Sounds; No Tenderness; No Distention Extremities: No Edema, - - left foot dressing CDI Neurological: Alert and Oriented x 3, NL Muscle Strength and Tone Nutrition: - - NPO for procedure Result Diagrams: 11/23/18 06:24 11/27/18 06:11 Microbiology and Other Data: Microbiology 11/21/18 18:39 Aerobic Blood Culture - Preliminary Blood Venous No Growth Day 1 Anaerobic Blood Culture - Preliminary No Growth Day 1 11/21/18 17:07 Aerobic Blood Culture - Preliminary Blood Venous No Growth Day 1 Anaerobic Blood Culture - Preliminary No Growth Day 1 Assess/Plan/Problems-Billing Assessment: Patient is a 68yo male with a PMH for DM II, PVD and chronic LE wounds who is admitted for wound infection, with plan for revascularization and surgical debridement. - Patient Problems (1) Chronic wound of extremity Code(s): [id number] - SNOMED Code(s): 804843460 Comment: - RLE, S/P multiple procedures, plan for revascularization today with Dr. Genao - Grew Enterococcus with multiple resistances, continue Vanco - ID following (2) DM II (diabetes mellitus, type II), controlled Code(s): E11.9 - TYPE 2 DIABETES MELLITUS WITHOUT COMPLICATIONS SNOMED Code(s) : 73999311 Comment: - SSI while inpatient instead of 70/30 - A1c 5.8% indicating very good control - Resume Metformin hold glipizide (3) HTN (hypertension) Code(s): I10 - ESSENTIAL (PRIMARY) HYPERTENSION SNOMED Code(s): 65231252 Comment: - Normotensive, Continue Lisinopril (4) PVD (peripheral vascular disease) Code(s): I73.9 - PERIPHERAL VASCULAR DISEASE, UNSPECIFIED SNOMED Code(s): 943935379 Comment: - No pain - Continue Lipitor and Aspirin - Revasc in IR today in anticipation of surgical intervention (5) Prolactin secreting pituitary adenoma Code(s): D35.2 - BENIGN NEOPLASM OF PITUITARY GLAND SNOMED Code(s): 910025378 Comment: - Continue Cabergoline MoFr (6) DVT prophylaxis Code(s): Z29.9 - ENCOUNTER FOR PROPHYLACTIC MEASURES, UNSPECIFIED SNOMED Code( s): 366305139 Comment: - Heparin SubQ (7) Full code status Code(s): Z78.9 - OTHER SPECIFIED HEALTH STATUS SNOMED Code(s): 825195462 Status and Disposition: Inpatient for possible surgical intervention. Disposition per Orthopedics.
[2018-11-27] MEDS ORDERED: Clopidogrel TAB* 300 MG PO ONE (17:22)
[2018-11-27] MEDS: Allopurinol TAB* 100 MG PO SCH (21:04)
[2018-11-27] MEDS: Aspirin EC TAB* 81 MG TAB.EC PO SCH (21:04)
[2018-11-28] MEDS: Heparin VIAL(*) 5000 UNITS/ML VIAL (FIVE THOUSAND) SUBCUT SCH ×3 (06:23→23:06)
[2018-11-28] MEDS: Vancomycin(*) 750 MG in NS 0.9% 250 ML* 250 ML IVPB SCH ×2 (06:23→17:35)
[2018-11-28] MEDS: Levothyroxine TAB* 125 MCG TAB PO SCH (06:23)
[2018-11-28 06:35] LABS: BUN/Creatinine Ratio 18.1 (8-20); Calcium 8.9 mg/dL (8.6-10.3); EGFR African American 111.5 (>60); EGFR Non-African American 92.1 (>60)
[2018-11-28 06:49] LABS: Hematocrit 38 % (42-52); Hemoglobin 12.6 g/dL (14.0-18.0); Mean Corpuscular HGB Conc 34 g/dL (31-36); Mean Corpuscular Hemoglobin 29 pg (27-31); Mean Corpuscular Volume 87 fL (80-94); Mean Platelet Volume 7.5 fL (7.4-10.4); Platelet Count 264 10^3/uL (150-450); Red Blood Count 4.34 10^6 /uL (4.18-5.48); Red Cell Distribution Width 15 % (10-15); White Blood Count 7.7 10^3/uL (3.5-10.8)
[2018-11-28] MEDS: metFORMIN* 1,000 MG TAB PO SCH ×2 (08:52→17:34)
[2018-11-28] MEDS: Atorvastatin* 80 MG TAB PO SCH (08:52)
[2018-11-28] MEDS: FLUoxetine CAP* 20 MG PO SCH (08:53)
[2018-11-28] MEDS: Clopidogrel TAB* 75 MG PO SCH (08:53)
[2018-11-28] MEDS: Lisinopril TAB* 5 MG PO SCH (08:54)
[2018-11-28] MEDS: Primidone TAB(*) 50 MG PO SCH (08:55)
[2018-11-28] MEDS: Insulin LISPRO* 1 UNITS UNIT SUBCUT SCH ×4 (10:04→20:13)
--- NOTE | 2018-11-28 12:15 | PN ---
Progress Note - Progress Note Date of Service: 11/28/18 SOAP: Subjective: Patient without pain at right groin over right CF arteriotomy site. States "a little bit of pain" on top of the foot at the dorsalis pedis arteriotomy. Says right foot overall no longer hurts. A can of chewing tobacco noted on table in front of patient Objective: Selected Entries 11/28/18 11:05 Temperature 97.8 F Temperature Oral Source Pulse Rate 69 Respiratory 16 Rate Blood Pressure 121/54 (mmHg) Blood Pressure 76 Mean O2 Sat by Pulse 99 Oximetry Patient on Room Yes Air NAD, AAO x 3 Right groin is soft, minimally tender to palpation. Right groin dressing with scant dry blood. 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 Pulses palpable in right leg up to DPA. Plan: 1. ASA and Plavix. 2. Patient strongly advised to stop chewing tobacco as nicotine exposure will increase likelihood of angiography failure. 3. Continue wound care per ID/ortho/hospitalists.
--- NOTE | 2018-11-28 12:31 | PN ---
Progress Note - Progress Note Date of Service: 11/28/18 SOAP: Subjective: []Pt seen at bedside, he feels well. No pain of the RLE, no feeling of fever or chills. Objective: [] General: NAD, nontoxic appearing MSK, RLE: Right foot with previous 1st ray amp with 3 nonhealing wounds along the medial side. Wounds are dry and without surrounding erythema. Lateral side of the foot with two blackened areas one quarter sized one dime sized with superficial serous filled blister connecting. No drainage and no erythema. He is able to wiggle his remaining toes. DP pulse is palpable. Confirms some sensation distally. Assessment: [Non healing wounds s/p right foot 1st ray amputation] Plan: [Dr. Genao revasc yesterday. Continue with vanco, abx per ID Will follow exam daily, if improving no surgical intervention. Would like to watch his progress in house for a few days to see if surgery will be necessary. Vital Signs Temp 97.8 F 11/28/18 11:05 Pulse 69 11/28/18 11:05 Resp 16 11/28/18 11:05 BP 121/54 11/28/18 11:05 Pulse Ox 99 11/28/18 11:05 Intake & Output 11/27/18 11/28/18 11/28/18 18:59 06:59 18:59 Intake Total 100 950.1 720 Output Total 325 900 Balance -225 50.1 720 Intake: IV Fluids 100 300.1 ABX - VANCOMYCIN 280.1 NS (0.9%) 20 IVPB 250 ABX - VANCOMYCIN 250 Oral 0 400 720 Output: Urine 325 900 Other: Estimated Void Medium # Bowel Movements 0 # Voids 1 Laboratory Last Values WBC 7.7 10^3/uL (3.5-10.8) 11/28/18 05:16 RBC 4.34 10^6 /uL (4.18-5.48) 11/28/18 05:16 Hgb 12.6 g/dL (14.0-18.0) L 11/28/18 05:16 Hct 38 % (42-52) L 11/28/18 05:16 MCV 87 fL (80-94) 11/28/18 05:16 MCH 29 pg (27-31) 11/28/18 05:16 MCHC 34 g/dL (31-36) 11/28/18 05:16 RDW 15 % (10-15) 11/28/18 05:16 Plt Count 264 10^3/uL (150-450) 11/28/18 05:16 MPV 7.5 fL (7.4-10.4) 11/28/18 05:16 Neut % (Auto) 63.8 % 11/23/18 06:24 Lymph % (Auto) 25.2 % 11/23/18 06:24 [place] % (Auto) 8.1 % 11/23/18 06:24 Eos % (Auto) 1.8 % 11/23/18 06:24 Baso % (Auto) 1.1 % 11/23/18 06:24 Absolute Neuts (auto) 5.9 10^3/ul (1.5-7.7) 11/23/18 06:24 Absolute Lymphs (auto) 2.3 10^3/ul (1.0-4.8) 11/23/18 06:24 Absolute Monos (auto) 0.7 10^3/ul (0-0.8) 11/23/18 06:24 Absolute Eos (auto) 0.2 10^3/ul (0-0.6) 11/23/18 06:24 Absolute Basos (auto) 0.1 10^3/ul (0-0.2) 11/23/18 06:24 Absolute Nucleated RBC 0.0 10^3/ul 11/23/18 06:24 Nucleated RBC % 0.0 11/23/18 06:24 INR (Anticoag Therapy) 1.09 (0.82-1.09) 11/21/18 17:07 POC Activ Clotting Time 211 seconds 11/27/18 15:10 Sodium 138 mmol/L (135-145) 11/28/18 05:16 Potassium 4.0 mmol/L (3.5-5.0) 11/28/18 05:16 Chloride 108 mmol/L (101-111) 11/28/18 05:16 Carbon Dioxide 23 mmol/L (22-32) 11/28/18 05:16 Anion Gap 7 mmol/L (2-11) 11/28/18 05:16 BUN 15 mg/dL (6-24) 11/28/18 05:16 Creatinine 0.83 mg/dL (0.67-1.17) 11/28/18 05:16 Est GFR ( Amer) 111.5 (>60) 11/28/18 05:16 Est GFR (Non-Af Amer) 92.1 (>60) 11/28/18 05:16 BUN/Creatinine Ratio 18.1 (8-20) 11/28/18 05:16 Glucose 141 mg/dL (70-100) H 11/28/18 05:16 POC Glucose (mg/dL) 268 mg/dL (70-100) H 11/28/18 12:20 Lactic Acid 1.6 mmol/L (0.5-2.0) 11/21/18 22:11 Calcium 8.9 mg/dL (8.6-10.3) 11/28/18 05:16 Magnesium 2.1 mg/dL (1.9-2.7) 11/23/18 06:24 C-Reactive Protein 6.85 mg/L (<8.01) 11/23/18 06:24 Vancomycin Trough 17.4 mcg/mL 11/26/18 05:45
--- NOTE | 2018-11-28 13:42 | PN ---
Subjective Date of Service: 11/28/18 Interval History: Patient seen and examined. States he is feeling well. No pain at arterial puncture site, no pain in RLE or right foot. Denies fever or chills. No SOB or chest pain. States he is happy he had the IR procedure yesterday to help restore his circulation. Family History: Unchanged from Admission Social History: Unchanged from Admission Past Medical History: Unchanged from Admission Objective Active Medications: Acetaminophen (Tylenol Tab*) 650 mg PO Q6H PRN PRN Reason: PAIN - MILD Allopurinol (Zyloprim Tab*) 200 mg PO BEDTIME [facility] Last Admin: 11/27/18 21:04 Dose: 200 mg Aspirin (Aspirin Ec Tab*) 81 mg PO BEDTIME [facility] Last Admin: 11/27/18 21:04 Dose: 81 mg Atorvastatin Calcium (Lipitor*) 80 mg PO QAM [facility] Last Admin: 11/28/18 08:52 Dose: 80 mg Clopidogrel Bisulfate (Plavix Tab*) 75 mg PO DAILY [facility] Last Admin: 11/28/18 08:53 Dose: 75 mg Dextrose (Dextrose 50% Vial 50 Ml*) 25 ml IV PUSH .FOR FS < 60 - SS PRN PRN Reason: FS < 60 Diphenhydramine HCl (Benadryl Iv*) 25 mg IV Q6H PRN PRN Reason: PRURITIS Diphenhydramine HCl (Benadryl Po*) 25 mg PO Q6H PRN PRN Reason: PRURITIS Fluoxetine HCl (Prozac Cap*) 40 mg PO QAM [facility] Last Admin: 11/28/18 08:53 Dose: 40 mg Heparin Sodium (Porcine) (Heparin Vial(*)) 5,000 units SUBCUT Q8HR [facility] Last Admin: 11/28/18 06:23 Dose: 5,000 units Vancomycin HCl 750 mg/ Sodium (Chloride) 250 mls @ 166.667 mls/hr IVPB Q12H [facility] Last Admin: 11/28/18 06:23 Dose: 166.667 mls/hr Insulin Human Lispro (Humalog*) 0 units SUBCUT ACHS [facility]; Protocol Last Admin: 11/28/18 12:56 Dose: 9 units Levothyroxine Sodium (Synthroid Tab*) 125 mcg PO 0600 [facility] Last Admin: 11/28/18 06:23 Dose: 125 mcg Lisinopril (Prinivil Tab*) 2.5 mg PO QAM [facility] Last Admin: 11/28/18 08:54 Dose: 2.5 mg Metformin HCl (Glucophage*) 1,000 mg PO BID WITH MEALS [facility] Last Admin: 11/28/18 08:52 Dose: 1,000 mg Pto: Cabergoline 0.5 (Mg Tabs) 0.5 mg PO MoFr@0900 [facility] Last Admin: 11/26/18 09:05 Dose: 0.5 mg Ondansetron HCl (Zofran Inj*) 4 mg IV Q6H PRN PRN Reason: NAUSEA Ondansetron HCl (Zofran Odt Tab*) 4 mg PO Q6H PRN PRN Reason: NAUSEA Oxycodone/Acetaminophen (Percocet 5/325 Tab*) 1 tab PO Q3H PRN PRN Reason: PAIN - SEVERE Pharmacy Consult (Vancomycin Per Pharmacy*) 1 note FOLLOW UP .VANC PER PHARMACY [facility]; Protocol Pharmacy Profile Note (Vancomycin Trough Check) 1 note FOLLOW UP 05 ONE Stop: 11/29/18 05:31 Primidone (Mysoline Tab(*)) 50 mg PO BID [facility] Last Admin: 11/28/18 08:55 Dose: 50 mg Tramadol HCl (Ultram*) 50 mg PO Q6H PRN PRN Reason: PAIN - MODERATE Vital Signs - 8 hr 11/28/18 11/28/18 07:45 11:05 Temperature 97.5 F 97.8 F Pulse Rate 76 69 Respiratory 16 16 Rate Blood Pressure 116/66 121/54 (mmHg) O2 Sat by Pulse 99 99 Oximetry Oxygen Devices in Use Now: None Appearance: alert, NAD Eyes: PERRLA Ears/Nose/Mouth/Throat: NL Teeth, Lips, Gums, Mucous Membranes Moist Neck: NL Appearance and Movements; NL JVP, Trachea Midline Respiratory: Symmetrical Chest Expansion and Respiratory Effort, Clear to Auscultation Cardiovascular: NL Sounds; No Murmurs; No JVD, RRR, No Edema Extremities: No Edema, No Clubbing, Cyanosis, - - dressing right foot CDI Skin: - - wounds to right foot not visualized, dressings intact Neurological: Alert and Oriented x 3 Nutrition: Taking PO's Result Diagrams: 11/28/18 05:16 11/28/18 05:16 Microbiology and Other Data: Microbiology 11/21/18 18:39 Aerobic Blood Culture - Preliminary Blood Venous No Growth Day 1 Anaerobic Blood Culture - Preliminary No Growth Day 1 11/21/18 17:07 Aerobic Blood Culture - Preliminary Blood Venous No Growth Day 1 Anaerobic Blood Culture - Preliminary No Growth Day 1 Assess/Plan/Problems-Billing Assessment: Patient is a 68yo male with a PMH for DM II, PVD and chronic LE wounds who is admitted for wound infection, with plan for revascularization and surgical debridement. - Patient Problems (1) Chronic wound of extremity Code(s): FCO7507 - SNOMED Code(s): 098561932 Comment: - RLE, S/P multiple procedures, plan for revascularization today with Dr. Genao - Grew Enterococcus with multiple resistances, continue Vanco while inpatient - Change to doxycycline x 2 weeks at discharge as per ID - Should follow up with orthopedics outpatient, no plans for additional intervention during this hospitalization - PT/OT evals (2) PVD (peripheral vascular disease) Code(s): I73.9 - PERIPHERAL VASCULAR DISEASE, UNSPECIFIED SNOMED Code(s): 847931898 Comment: - POD1 angioplasty right SFA, revascularization, atherectomy and angioplasty of right ARIS and angioplasty of right peroneal artery via right common femoral and right dorsalis pedis arteriotomies - Continue daily ASA 81mg indefinitely and plavix daily 75mg 3-6 months (3) DM II (diabetes mellitus, type II), controlled Code(s): E11.9 - TYPE 2 DIABETES MELLITUS WITHOUT COMPLICATIONS SNOMED Code(s) : 98973742 Comment: - SSI while inpatient instead of 70/30 - A1c 5.8% indicating very good control - Resume Metformin, restart glipizide at discharge (4) HTN (hypertension) Code(s): I10 - ESSENTIAL (PRIMARY) HYPERTENSION SNOMED Code(s): 88046638 Comment: - Normotensive, Continue Lisinopril (5) Prolactin secreting pituitary adenoma Code(s): D35.2 - BENIGN NEOPLASM OF PITUITARY GLAND SNOMED Code(s): 729969587 Comment: - Continue Cabergoline MoFr (6) DVT prophylaxis Code(s): Z29.9 - ENCOUNTER FOR PROPHYLACTIC MEASURES, UNSPECIFIED SNOMED Code( s): 259602144 Comment: - Heparin SubQ (7) Full code status Code(s): Z78.9 - OTHER SPECIFIED HEALTH STATUS SNOMED Code(s): 960028264 Status and Disposition: Inpatient, pending DC, may need EARLINE vs home with VNS.
[2018-11-28] MEDS: Aspirin EC TAB* 81 MG TAB.EC PO SCH (20:12)
[2018-11-28] MEDS: Allopurinol TAB* 100 MG PO SCH (20:13)
[2018-11-29] MEDS ORDERED: Vancomycin Trough Check NOTE FOLLOW UP ONE (05:30)
[2018-11-29] MEDS: Heparin VIAL(*) 5000 UNITS/ML VIAL (FIVE THOUSAND) SUBCUT SCH ×3 (05:51→21:37)
[2018-11-29] MEDS: Levothyroxine TAB* 125 MCG TAB PO SCH (05:51)
[2018-11-29] MEDS: Vancomycin(*) 750 MG in NS 0.9% 250 ML* 250 ML IVPB SCH ×2 (07:12→17:46)
[2018-11-29] MEDS: metFORMIN* 1,000 MG TAB PO SCH ×2 (08:54→17:45)
[2018-11-29] MEDS: FLUoxetine CAP* 20 MG PO SCH (08:55)
[2018-11-29] MEDS: Lisinopril TAB* 5 MG PO SCH (08:55)
[2018-11-29] MEDS: Atorvastatin* 80 MG TAB PO SCH (08:55)
[2018-11-29] MEDS: Clopidogrel TAB* 75 MG PO SCH (08:55)
[2018-11-29] MEDS: Insulin LISPRO* 1 UNITS UNIT SUBCUT SCH ×4 (09:00→21:06)
--- NOTE | 2018-11-29 09:07 | PN ---
Progress Note - Progress Note Date of Service: 11/29/18 SOAP: Subjective: CC: foot wound HPI: 68 year old diabetic man with right foot 1st ray amputation, has had difficulty with wound healing, developed superficial necrosis right lateral foot with an maria del carmen wrap. Had below knee revascularization this admission. He has no pain, fever, rash, or diarrhea. Objective: Vital Signs Temp 36.5 C 11/29/18 07:15 Pulse 75 11/29/18 07:15 Resp 16 11/29/18 07:15 BP 121/59 11/29/18 07:15 Pulse Ox 95 11/29/18 07:15 Intake & Output 11/28/18 11/29/18 11/29/18 18:59 06:59 18:59 Intake Total 1370 120 0 Output Total 850 Balance 1370 -730 0 Intake: IV Fluids 250 120 ABX - VANCOMYCIN 250 100 NS (0.9%) 20 Oral 1120 0 0 Output: Urine 850 Other: # Bowel Movements 0 Gen:awake, no distress HEENT: no thrush Heart:RRR no murmur Lungs:CTA BL Abd:+BS NTND soft Skin: Right leg warm, medial foot ulceration and lateral foot black eschar; no erythema Laboratory Results - last 24 hr 11/28/18 11/28/18 11/28/18 08:59 12:20 17:16 POC Glucose (mg/dL) 118 H 268 H 134 H Vancomycin Trough 11/28/18 11/29/18 11/29/18 20:03 05:15 07:31 POC Glucose (mg/dL) 185 H 200 H Vancomycin Trough 15.3 Assessment: 1. Non healing right foot wounds due to PAD s/p angioplasty 2. Hx chronic osteomyelitis right foot s/p 1st ray amputation and long course of IV antibiotics 3. diabetes with neuropathy 4. obesity Plan: 1. continue vancomycin goal tr 15-20, day 8, will continue here, to be followed with long course of PO antibiotics. Discussed with Eloina Hernandez NP
--- NOTE | 2018-11-29 10:48 | PN ---
Subjective Date of Service: 11/29/18 Interval History: Mr. Crespo is feeling well today. He offers no complaints this morning. Denies pain. Very little sensation in the right foot. Good appetite. Denies CP, SOB, N/ V, dizziness, headache. No concerns from nursing. Family History: Unchanged from Admission Social History: Unchanged from Admission Past Medical History: Unchanged from Admission Objective Active Medications: Acetaminophen (Tylenol Tab*) 650 mg PO Q6H PRN PAIN - MILD Allopurinol (Zyloprim Tab*) 200 mg PO BEDTIME [facility] Aspirin (Aspirin Ec Tab*) 81 mg PO BEDTIME [facility] Atorvastatin Calcium (Lipitor*) 80 mg PO QAM [facility] Clopidogrel Bisulfate (Plavix Tab*) 75 mg PO DAILY [facility] Dextrose (Dextrose 50% Vial 50 Ml*) 25 ml IV PUSH .FOR FS < 60 - SS PRN FS < 60 Diphenhydramine HCl (Benadryl Iv*) 25 mg IV Q6H PRN PRURITIS Diphenhydramine HCl (Benadryl Po*) 25 mg PO Q6H PRN PRURITIS Fluoxetine HCl (Prozac Cap*) 40 mg PO QAM [facility] Heparin Sodium (Porcine) (Heparin Vial(*)) 5,000 units SUBCUT Q8HR [facility] Vancomycin HCl 750 mg/ Sodium (Chloride) 250 mls @ 166.667 mls/hr IVPB Q12H [facility] Insulin Human Lispro (Humalog*) 0 units SUBCUT ACHS [facility]; Protocol Levothyroxine Sodium (Synthroid Tab*) 125 mcg PO 0600 [facility] Lisinopril (Prinivil Tab*) 2.5 mg PO QAM [facility] Metformin HCl (Glucophage*) 1,000 mg PO BID WITH MEALS [facility] Pto: Cabergoline 0.5 (Mg Tabs) 0.5 mg PO MoFr@0900 [facility] Ondansetron HCl (Zofran Inj*) 4 mg IV Q6H PRN NAUSEA Ondansetron HCl (Zofran Odt Tab*) 4 mg PO Q6H PRN NAUSEA Vital Signs - 8 hr 11/29/18 11/29/18 11/29/18 03:15 07:15 08:00 Temperature 97.4 F 97.7 F Pulse Rate 62 75 Respiratory 18 16 16 Rate Blood Pressure 139/90 121/59 (mmHg) O2 Sat by Pulse 100 95 Oximetry Oxygen Devices in Use Now: None Appearance: Middle-aged male sitting in bed in NAD Neck: NL Appearance and Movements; NL JVP, Trachea Midline Respiratory: Symmetrical Chest Expansion and Respiratory Effort, Clear to Auscultation Cardiovascular: NL Sounds; No Murmurs; No JVD, RRR Abdominal: NL Sounds; No Tenderness; No Distention Extremities: No Edema Neurological: Alert and Oriented x 3 Lines/Tubes/Other Access: Clean, Dry and Intact Peripheral IV Nutrition: Taking PO's Result Diagrams: 11/28/18 05:16 11/28/18 05:16 Assess/Plan/Problems-Billing Assessment: Mr. Crespo is a 68 yo M with PMH of DM II, PVD and chronic LE wounds who is admitted for wound infection, with plan for revascularization and surgical debridement. - Patient Problems (1) Chronic wound of extremity Code(s): LHV5565 - Comment: - RLE - S/p revascularization with Dr. Genao on 11/27/18 - Cultures grew Enterococcus with multiple resistances - PT/OT evals - Should follow up with orthopedics outpatient, no plans for additional intervention during this hospitalization - ID recommends likely linezolid for 2 weeks after d/c - Continue vanco (2) PVD (peripheral vascular disease) Code(s): I73.9 - PERIPHERAL VASCULAR DISEASE, UNSPECIFIED Comment: - POD #2 angioplasty right SFA, revascularization, atherectomy and angioplasty of right ARIS and angioplasty of right peroneal artery via right common femoral and right dorsalis pedis arteriotomies - Continue daily aspirin indefinitely and Plavix 75mg 3-6 months (3) DM II (diabetes mellitus, type II), controlled Code(s): E11.9 - TYPE 2 DIABETES MELLITUS WITHOUT COMPLICATIONS Comment: - A1c 5.8% indicating very good control - Continue Lispro SS, metformin (4) HTN (hypertension) Code(s): I10 - ESSENTIAL (PRIMARY) HYPERTENSION Comment: - Normotensive - Continue lisinopril (5) Prolactin secreting pituitary adenoma Code(s): D35.2 - BENIGN NEOPLASM OF PITUITARY GLAND Comment: - Continue Cabergoline MoFr (6) Hyperlipidemia Code(s): E78.5 - HYPERLIPIDEMIA, UNSPECIFIED Comment: - Continue atorvastatin (7) Hypothyroidism Code(s): E03.9 - HYPOTHYROIDISM, UNSPECIFIED Comment: - Continue levothyroxine (8) DVT prophylaxis Code(s): Z29.9 - ENCOUNTER FOR PROPHYLACTIC MEASURES, UNSPECIFIED Comment: - Heparin SQ (9) Full code status Code(s): Z78.9 - OTHER SPECIFIED HEALTH STATUS Comment: Status and Disposition: Dispo per Ortho. Thank you for this consultation. We will continue to follow. Attending: Harmeet Christine
--- NOTE | 2018-11-29 12:25 | PN ---
Progress Note - Progress Note Date of Service: 11/29/18 SOAP: Subjective: []Pt seen at bedside, he is in good spirits without complaints. Objective: []General: NAD, nontoxic appearing MSK, RLE: Right foot with previous 1st ray amp with 3 nonhealing wounds along the medial side. Wounds are dry and without surrounding erythema. Lateral side of the foot with two blackened areas one quarter sized one pea sized, improved appearance from yesterday. No drainage and no erythema. He is able to wiggle his remaining toes. DP pulse is palpable. Confirms some sensation distally. Assessment: [Non healing wounds s/p right foot 1st ray amputation] Plan: [Dr. Genao revasc 11/27/18 Continue with vanco, abx per ID Exam improved today from yesterday, Will follow exam daily, if continued improvement no surgical intervention. Watch in house another day, check in with ortho prior to DC Vital Signs Temp 97.6 F 11/29/18 11:15 Pulse 68 11/29/18 11:15 Resp 18 11/29/18 11:15 BP 123/61 11/29/18 11:15 Pulse Ox 99 11/29/18 11:15 Intake & Output 11/28/18 11/29/18 11/29/18 18:59 06:59 18:59 Intake Total 1370 120 0 Output Total 850 Balance 1370 -730 0 Intake: IV Fluids 250 120 ABX - VANCOMYCIN 250 100 NS (0.9%) 20 Oral 1120 0 0 Output: Urine 850 Other: # Bowel Movements 0 Laboratory Last Values WBC 7.7 10^3/uL (3.5-10.8) 11/28/18 05:16 RBC 4.34 10^6 /uL (4.18-5.48) 11/28/18 05:16 Hgb 12.6 g/dL (14.0-18.0) L 11/28/18 05:16 Hct 38 % (42-52) L 11/28/18 05:16 MCV 87 fL (80-94) 11/28/18 05:16 MCH 29 pg (27-31) 11/28/18 05:16 MCHC 34 g/dL (31-36) 11/28/18 05:16 RDW 15 % (10-15) 11/28/18 05:16 Plt Count 264 10^3/uL (150-450) 11/28/18 05:16 MPV 7.5 fL (7.4-10.4) 11/28/18 05:16 Neut % (Auto) 63.8 % 11/23/18 06:24 Lymph % (Auto) 25.2 % 11/23/18 06:24 [place] % (Auto) 8.1 % 11/23/18 06:24 Eos % (Auto) 1.8 % 11/23/18 06:24 Baso % (Auto) 1.1 % 11/23/18 06:24 Absolute Neuts (auto) 5.9 10^3/ul (1.5-7.7) 11/23/18 06:24 Absolute Lymphs (auto) 2.3 10^3/ul (1.0-4.8) 11/23/18 06:24 Absolute Monos (auto) 0.7 10^3/ul (0-0.8) 11/23/18 06:24 Absolute Eos (auto) 0.2 10^3/ul (0-0.6) 11/23/18 06:24 Absolute Basos (auto) 0.1 10^3/ul (0-0.2) 11/23/18 06:24 Absolute Nucleated RBC 0.0 10^3/ul 11/23/18 06:24 Nucleated RBC % 0.0 11/23/18 06:24 INR (Anticoag Therapy) 1.09 (0.82-1.09) 11/21/18 17:07 POC Activ Clotting Time 211 seconds 11/27/18 15:10 Sodium 138 mmol/L (135-145) 11/28/18 05:16 Potassium 4.0 mmol/L (3.5-5.0) 11/28/18 05:16 Chloride 108 mmol/L (101-111) 11/28/18 05:16 Carbon Dioxide 23 mmol/L (22-32) 11/28/18 05:16 Anion Gap 7 mmol/L (2-11) 11/28/18 05:16 BUN 15 mg/dL (6-24) 11/28/18 05:16 Creatinine 0.83 mg/dL (0.67-1.17) 11/28/18 05:16 Est GFR ( Amer) 111.5 (>60) 11/28/18 05:16 Est GFR (Non-Af Amer) 92.1 (>60) 11/28/18 05:16 BUN/Creatinine Ratio 18.1 (8-20) 11/28/18 05:16 Glucose 141 mg/dL (70-100) H 11/28/18 05:16 POC Glucose (mg/dL) 200 mg/dL (70-100) H 11/29/18 07:31 Lactic Acid 1.6 mmol/L (0.5-2.0) 11/21/18 22:11 Calcium 8.9 mg/dL (8.6-10.3) 11/28/18 05:16 Magnesium 2.1 mg/dL (1.9-2.7) 11/23/18 06:24 C-Reactive Protein 6.85 mg/L (<8.01) 11/23/18 06:24 Vancomycin Trough 15.3 mcg/mL 11/29/18 05:15
[2018-11-29] MEDS: Aspirin EC TAB* 81 MG TAB.EC PO SCH (21:04)
[2018-11-29] MEDS: Allopurinol TAB* 100 MG PO SCH (21:04)
[2018-11-30] MEDS: Levothyroxine TAB* 125 MCG TAB PO SCH (05:27)
[2018-11-30] MEDS: Heparin VIAL(*) 5000 UNITS/ML VIAL (FIVE THOUSAND) SUBCUT SCH ×3 (05:28→22:57)
[2018-11-30] MEDS: Vancomycin(*) 750 MG in NS 0.9% 250 ML* 250 ML IVPB SCH ×2 (05:32→17:25)
[2018-11-30] MEDS: FLUoxetine CAP* 20 MG PO SCH (08:33)
[2018-11-30] MEDS: Atorvastatin* 80 MG TAB PO SCH (08:34)
[2018-11-30] MEDS: Insulin LISPRO* 1 UNITS UNIT SUBCUT SCH ×4 (08:34→21:01)
[2018-11-30] MEDS: Lisinopril TAB* 5 MG PO SCH (08:34)
[2018-11-30] MEDS: metFORMIN* 1,000 MG TAB PO SCH ×2 (08:34→17:24)
[2018-11-30] MEDS: Clopidogrel TAB* 75 MG PO SCH (08:34)
[2018-11-30] MEDS: CABERGOLINE 0.5 MG PO SCH (08:35)
--- NOTE | 2018-11-30 14:52 | PN ---
Subjective Date of Service: 11/30/18 Interval History: Patient is feeling well. Patient denies F/C, CP, SOB, abdominal pain, diarrhea, dizziness, pain in foot, or other pain. Family History: Unchanged from Admission Social History: Unchanged from Admission Past Medical History: Unchanged from Admission Objective Active Medications: Acetaminophen (Tylenol Tab*) 650 mg PO Q6H PRN PRN Reason: PAIN - MILD Allopurinol (Zyloprim Tab*) 200 mg PO BEDTIME [facility] Last Admin: 11/29/18 21:04 Dose: 200 mg Aspirin (Aspirin Ec Tab*) 81 mg PO BEDTIME [facility] Last Admin: 11/29/18 21:04 Dose: 81 mg Atorvastatin Calcium (Lipitor*) 80 mg PO QAM [facility] Last Admin: 11/30/18 08:34 Dose: 80 mg Clopidogrel Bisulfate (Plavix Tab*) 75 mg PO DAILY [facility] Last Admin: 11/30/18 08:34 Dose: 75 mg Dextrose (Dextrose 50% Vial 50 Ml*) 25 ml IV PUSH .FOR FS < 60 - SS PRN PRN Reason: FS < 60 Diphenhydramine HCl (Benadryl Iv*) 25 mg IV Q6H PRN PRN Reason: PRURITIS Diphenhydramine HCl (Benadryl Po*) 25 mg PO Q6H PRN PRN Reason: PRURITIS Fluoxetine [facility] (Prozac Cap*) [facility] [place] [facility] Admin: 11/30/18 08:33 Dose: 40 mg Heparin Sodium (Porcine) (Heparin Vial(*)) 5,000 units SUBCUT Q8HR [facility] Last Admin: 11/30/18 12:23 Dose: 5,000 units Vancomycin HCl 750 mg/ Sodium (Chloride) 250 mls @ 166.667 mls/hr IVPB Q12H [facility] Last Admin: 11/30/18 05:32 Dose: 166.667 mls/hr Insulin Human Lispro (Humalog*) 0 units SUBCUT ACHS [facility]; Protocol Last Admin: 11/30/18 12:23 Dose: 6 units Levothyroxine Sodium (Synthroid Tab*) 125 mcg PO 0600 [facility] Last Admin: 11/30/18 05:27 Dose: 125 mcg Lisinopril (Prinivil Tab*) [facility] [place] Last Admin: 11/30/18 08:34 Dose: 2.5 mg Metformin HCl (Glucophage*) 1,000 mg PO BID WITH MEALS [facility] Last Admin: 11/30/18 08:34 Dose: 1,000 mg Pto: Cabergoline 0.5 (Mg Tabs) 0.5 mg PO MoFr@0900 [facility] Last Admin: 11/30/18 08:35 Dose: Not Given Ondansetron HCl (Zofran Inj*) 4 mg IV Q6H PRN PRN Reason: NAUSEA Ondansetron HCl (Zofran Odt Tab*) 4 mg PO Q6H PRN PRN Reason: NAUSEA Pharmacy Consult (Vancomycin Per Pharmacy*) 1 note FOLLOW UP .VANC PER PHARMACY [facility]; Protocol Pharmacy Profile Note (Vancomycin Trough Check) 1 note FOLLOW UP 529 ONE Stop: 12/02/18 05:31 Vital Signs - 8 hr 11/30/18 11/30/18 11/30/18 07:15 08:00 11:15 Temperature 97.8 F 97.6 F Pulse Rate 65 74 Respiratory 16 16 16 Rate Blood Pressure 120/51 116/64 (mmHg) O2 Sat by Pulse 97 100 Oximetry Oxygen Devices in Use Now: None Appearance: Patient is a 68yo male who appears stated age and is sitting in the bed in [facility]. Eyes: No Scleral Icterus, PERRLA Ears/Nose/Mouth/Throat: NL Teeth, Lips, Gums, Clear Oropharnyx, Mucous Membranes Moist Neck: NL Appearance and Movements; NL JVP, Trachea Midline Respiratory: Symmetrical Chest Expansion and Respiratory Effort, Clear to Auscultation Cardiovascular: NL Sounds; No Murmurs; No JVD, RRR, No Edema Abdominal: NL Sounds; No Tenderness; No Distention, No Hepatosplenomegaly Lymphatic: No Cervical Adenopathy Extremities: No Edema, No Clubbing, Cyanosis Skin: No Nodules or Sclerosis, - - RLE wounds improved from previous exam. Neurological: Alert and Oriented x 3, NL Muscle Strength and Tone, - - Peripheral Neuropathy. Result Diagrams: 11/28/18 05:16 11/28/18 05:16 Microbiology and Other Data: Microbiology 11/21/18 18:39 Aerobic Blood Culture - Preliminary Blood Venous No Growth Day 1 Anaerobic Blood Culture - Preliminary No Growth Day 1 11/21/18 17:07 Aerobic Blood Culture - Preliminary Blood Venous No Growth Day 1 Anaerobic Blood Culture - Preliminary No Growth Day 1 Assess/Plan/Problems-Billing Assessment: Mr. Crespo is a 68 yo M with PMH of DM II, PVD and chronic LE wounds who is admitted for wound infection, with plan for revascularization and surgical debridement. - Patient Problems (1) Chronic wound of extremity Current Visit: Yes Status: Acute Code(s): ROB7678 - SNOMED Code(s): 990831357 Comment: - RLE - S/p revascularization with Dr. Genao on 11/27/18 - Cultures grew Enterococcus with multiple resistances - Should follow up with orthopedics outpatient, no plans for additional intervention during this hospitalization - ID recommends likely linezolid for 2 weeks after d/c - Continue vanco - Improving at this time. (2) DM II (diabetes mellitus, type II), controlled Current Visit: Yes Status: Acute Code(s): E11.9 - TYPE 2 DIABETES MELLITUS WITHOUT COMPLICATIONS SNOMED Code(s): 88936296 Comment: - A1c 5.8% indicating very good control - Continue Lispro SS, metformin - Restart Glipizide at D/C. (3) PVD (peripheral vascular disease) Current Visit: Yes Status: Acute Code(s): I73.9 - PERIPHERAL VASCULAR DISEASE, UNSPECIFIED SNOMED Code(s): 785229440 Comment: - POD #3 angioplasty right SFA, revascularization, atherectomy and angioplasty of right ARIS and angioplasty of right peroneal artery via right common femoral and right dorsalis pedis arteriotomies - Continue daily aspirin indefinitely and Plavix 75mg 3-6 months - Improved pulses in RLE. (4) HTN (hypertension) Current Visit: Yes Status: Acute Code(s): I10 - ESSENTIAL (PRIMARY) HYPERTENSION SNOMED Code(s): 94203659 Comment: - Normotensive - Continue lisinopril (5) Prolactin secreting pituitary adenoma Current Visit: Yes Status: Acute Code(s): D35.2 - BENIGN NEOPLASM OF PITUITARY GLAND SNOMED Code(s): 411235961 Comment: - Continue Cabergoline MoFr (6) Hyperlipidemia Current Visit: Yes Status: Acute Code(s): E78.5 - HYPERLIPIDEMIA, UNSPECIFIED SNOMED Code(s): 90755857 Comment: - Continue atorvastatin (7) Hypothyroidism Current Visit: Yes Status: Acute Code(s): E03.9 - HYPOTHYROIDISM, UNSPECIFIED SNOMED Code(s): 40454073 Comment: - Continue levothyroxine (8) DVT prophylaxis Current Visit: Yes Status: Acute Code(s): Z29.9 - ENCOUNTER FOR PROPHYLACTIC MEASURES, UNSPECIFIED SNOMED Code(s): 494317161 Comment: - Heparin SQ (9) Full code status Current Visit: Yes Status: Acute Code(s): Z78.9 - OTHER SPECIFIED HEALTH STATUS SNOMED Code(s): 559364106 Comment: Status and Disposition: Dispo per Ortho. Hopeful D/C tomorrow. Thank you for this consultation. We will continue to follow.
--- NOTE | 2018-11-30 15:03 | PN ---
Progress Note - Progress Note Date of Service: 11/30/18 SOAP: Subjective: [Pt seen at bedside, he is in good spirits without complaints. Denies any chest pain, SOB. Nausea or vomiting. Objective: []General: NAD, nontoxic appearing MSK, RLE: Dressing is c/d/i. Pt seems to have diminished sensation in toes. Cap refill is less than 2 seconds. Vital Signs Temp 97.6 F 11/30/18 11:15 Pulse 74 11/30/18 11:15 Resp 16 11/30/18 11:15 BP 116/64 11/30/18 11:15 Pulse Ox 100 11/30/18 11:15 Intake & Output 11/29/18 11/30/18 11/30/18 18:59 06:59 18:59 Intake Total 1415 0 880 Output Total 300 900 Balance 1115 -900 880 Intake: IVPB 265 ABX - VANCOMYCIN 265 Oral 1150 0 880 Output: Urine 300 900 Other: Estimated Void Medium # Bowel Movements 0 0 # Voids 0 1 Assessment: [Non healing wounds s/p right foot 1st ray amputation] Plan: [Dr. Genao revasc 11/27/18 Continue with vanco, abx per ID Will discharge tomorrow. Dressing change with examination tomorrow.
[2018-11-30] MEDS: Allopurinol TAB* 100 MG PO SCH (21:00)
[2018-11-30] MEDS: Aspirin EC TAB* 81 MG TAB.EC PO SCH (21:00)
[2018-12-01 04:34] VITALS: BP 108/53
[2018-12-01] MEDS: Vancomycin(*) 750 MG in NS 0.9% 250 ML* 250 ML IVPB SCH (05:56)
[2018-12-01] MEDS: Heparin VIAL(*) 5000 UNITS/ML VIAL (FIVE THOUSAND) SUBCUT SCH (05:56)
[2018-12-01] MEDS: Levothyroxine TAB* 125 MCG TAB PO SCH (06:14)
[2018-12-01] MEDS: Insulin LISPRO* 1 UNITS UNIT SUBCUT SCH (09:09)
[2018-12-01] MEDS: Clopidogrel TAB* 75 MG PO SCH (10:01)
[2018-12-01] MEDS: Atorvastatin* 80 MG TAB PO SCH (10:01)
[2018-12-01] MEDS: FLUoxetine CAP* 20 MG PO SCH (10:01)
[2018-12-01] MEDS: metFORMIN* 1,000 MG TAB PO SCH (10:01)
[2018-12-01] MEDS: Lisinopril TAB* 5 MG PO SCH (10:01)
--- NOTE | 2018-12-01 10:13 | PN ---
Progress Note - Progress Note Date of Service: 12/01/18 SOAP: Subjective: Pt is doing well. Pain controlled. Denies N/T, F/C or Cp/SOB. Eager to leave Objective: PE- 68 y/o WDWN M NAD RLE- healing ulceration about medial and lateral foot, no surrounding warmth erythema, no purulent discharge, calf soft NT, +DF/PF ankle, NVI Vital Signs Temp Pulse Resp BP Pulse Ox 97.1 F 72 18 108/53 100 12/01/18 03:49 12/01/18 03:49 12/01/18 03:49 12/01/18 03:49 12/01/18 03:49 Laboratory Results - last 24 hr 11/30/18 11/30/18 11/30/18 12:08 17:16 20:03 POC Glucose (mg/dL) 224 H 178 H 149 H 12/01/18 07:43 POC Glucose (mg/dL) 120 H Assessment: [Non healing wounds s/p right foot 1st ray amputation] Plan: [Dr. Genao revasc 11/27/18 Continue abx per ID on DC Daily betadine dressing changes DC to home today
--- NOTE | 2018-12-01 10:14 | DS ---
Date of service: 12/01/18 Date of Admission:11/21/18 Date of Discharge: [12/01/18] Attending Orthopedic Provider: [Dr. 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 Patient has failed conservative management and was admitted for IV antibiotic treatment Hospital Course: TARUN was admitted to [facility] on 11/21/18. He was started on IV antibiotic per infectious disease. His wound improved with the antibiotics. Studies revealed poor vascularization to the right foot therefore he underwent a revascularization procedure with Dr. Genao on . He recovered appropriately from the procedure and daily dressing changes revealed healing ulcers with no warmth or erythema. On 12/01/18 the patient was orthopedically and medically stable for discharge to home with continued antibiotic treatment PE: 68 y/o WDWN M NAD RLE- healing ulceration about medial and lateral foot, no surrounding warmth erythema, no purulent discharge, calf soft NT, +DF/PF ankle, NVI Discharge plan: Activity as Tolerated. Heel weight bearing Continue antibiotics Follow up with your primary care provider within 1 week for general medical management, discuss deescalation of your diabetic regimen. Follow up with Dr. Damon within 1-2 weeks for care of your foot. Return to the hospital for high fevers, passing out, chest pain, or other alarming symptoms. Active Medications Generic Name Dose Route Start Last Admin Trade Name Freq PRN Reason Stop Dose Admin Acetaminophen 650 mg 11/21/18 15:59 Tylenol Tab* PO Q6H PRN PAIN - MILD Allopurinol 200 mg 11/21/18 21:00 11/30/18 21:00 Zyloprim Tab* PO 200 mg BEDTIME [facility] Administration Aspirin 81 mg 11/21/18 21:00 11/30/18 21:00 Aspirin Ec Tab* PO 81 mg BEDTIME [facility]E Administration Atorvastatin Calcium 80 mg 11/22/18 09:00 12/01/18 10:01 Lipitor* PO 80 mg QAM [facility] Administration Clopidogrel Bisulfate 75 mg 11/28/18 09:00 12/01/18 10:01 Plavix Tab* PO 75 mg DAILY [facility] Administration Dextrose 25 ml 11/21/18 21:25 Dextrose 50% Vial 50 Ml* IV PUSH .FOR FS < 60 - SS PRN FS < 60 Diphenhydramine HCl 25 mg 11/21/18 16:04 Benadryl Iv* IV Q6H PRN PRURITIS Diphenhydramine HCl 25 mg 11/21/18 16:04 Benadryl Po* PO Q6H PRN PRURITIS Fluoxetine HCl 40 mg 11/22/18 09:00 12/01/18 10:01 Prozac Cap* PO 40 mg QAM [facility]E Administration Heparin Sodium (Porcine) 5,000 units 11/21/18 22:00 12/01/18 05:56 Heparin Vial(*) SUBCUT 5,000 units Q8HR [facility] Administration Vancomycin HCl 750 mg/ Sodium 250 mls @ 166.667 mls/hr 11/25/18 06:00 05:56 Chloride IVPB 166.667 mls/hr Q12H [facility] Administration Insulin Human Lispro 0 units 11/25/18 22:00 12/01/18 09:09 Humalog* SUBCUT Not Given ACHS [facility] Protocol Levothyroxine Sodium 125 mcg 11/22/18 06:00 12/01/18 06:14 Synthroid Tab* PO 125 mcg 0600 [facility] Administration Lisinopril 2.5 mg 11/22/18 09:00 12/01/18 10:01 Prinivil Tab* PO 2.5 mg QAM [facility]E Administration Metformin HCl 1,000 mg 11/25/18 09:00 12/01/18 10:01 Glucophage* PO 1,000 mg BID WITH MEALS [facility]E Administration Pto: Cabergoline 0.5 0.5 mg 11/23/18 09:00 11/30/18 08:35 Mg Tabs PO Not Given MoFr@0900 [facility] Ondansetron HCl 4 mg 11/21/18 16:04 Zofran Inj* IV Q6H PRN NAUSEA Ondansetron HCl 4 mg 11/21/18 16:04 Zofran Odt Tab* PO Q6H PRN NAUSEA Pharmacy Consult 1 note 11/21/18 18:00 Vancomycin Per Pharmacy* FOLLOW UP .VANC PER PHARMACY [facility] Protocol Pharmacy Profile Note 1 note 12/02/18 05:30 Vancomycin Trough Check FOLLOW UP 12/02/18 05:31 0530 ONE
[2018-12-02] MEDS ORDERED: Vancomycin Trough Check NOTE FOLLOW UP ONE (05:30)
== END 2018-12-01 10:40 | disposition home health service (06) | DRG 271 ==
LOC: MED 14:32
PROVIDERS: ADMIT Orthopaedic Surgery; ATTEND Orthopaedic Surgery
PROC: 04CP3ZZ Extirpation of Matter from Right Anterior Tibial Artery, Percutaneous Approach (ICD-10-PCS; 2018-11-27)
PROC: 047K3ZZ Dilation of Right Femoral Artery, Percutaneous Approach (ICD-10-PCS; 2018-11-27)
PROC: 047T3ZZ Dilation of Right Peroneal Artery, Percutaneous Approach (ICD-10-PCS; 2018-11-27)
PROC: 047M3ZZ Dilation of Right Popliteal Artery, Percutaneous Approach (ICD-10-PCS; 2018-11-27)
PROC: B41FYZZ Fluoroscopy of Right Lower Extremity Arteries using Other Contrast (ICD-10-PCS; 2018-11-27)
PROC: 047P3ZZ Dilation of Right Anterior Tibial Artery, Percutaneous Approach (ICD-10-PCS; principal; 2018-11-27 12:00)
DX: E11.52 Type 2 diabetes mellitus with diabetic peripheral angiopathy with gangrene (principal); M86.671 Other chronic osteomyelitis, right ankle and foot; I96 Gangrene, not elsewhere classified; E11.621 Type 2 diabetes mellitus with foot ulcer; E11.42 Type 2 diabetes mellitus with diabetic polyneuropathy; L97.529 Non-pressure chronic ulcer of other part of left foot with unspecified severity; M10.9 Gout, unspecified; I10 Essential (primary) hypertension; E66.9 Obesity, unspecified; E03.9 Hypothyroidism, unspecified; F32.9 Major depressive disorder, single episode, unspecified; G31.84 Mild cognitive impairment of uncertain or unknown etiology; E78.00 Pure hypercholesterolemia, unspecified; G25.0 Essential tremor; K59.00 Constipation, unspecified; E11.69 Type 2 diabetes mellitus with other specified complication; B95.2 Enterococcus as the cause of diseases classified elsewhere; S90.921A Unspecified superficial injury of right foot, initial encounter; D35.2 Benign neoplasm of pituitary gland; Z79.02 Long term (current) use of antithrombotics/antiplatelets; Z79.4 Long term (current) use of insulin; Z68.34 Body mass index [BMI] 34.0-34.9, adult; Z80.1 Family history of malignant neoplasm of trachea, bronchus and lung; Z80.0 Family history of malignant neoplasm of digestive organs; T81.30XD Disruption of wound, unspecified, subsequent encounter; Z79.82 Long term (current) use of aspirin; Z79.01 Long term (current) use of anticoagulants; Z85.841 Personal history of malignant neoplasm of brain
CPT/HCPCS: 36415; 76937; 80048; 80202; 82565; 83605; 83735; 84520; 85025; 85027; 85347; 85610; 86140; 87040; 99156; 99157; A9270-GY; C1724; C1725; C1760; C1769; C1887; C1894; G8978-GP-CH; G8979-GP-CH; G8980-GP-CH; G8987-GO-CI; G8988-GO-CI; J1644; J2250; J3010; J3370

== ENCOUNTER 2019-06-20 13:42 | Inpatient (IN) ==
[2019-06-20] MEDS ORDERED: Clindamycin 600 MG/D5W BAG 600 MG/50 ML BAG IV ONE (14:41)
[2019-06-20 14:45] LABS: ABS Eosinophils 0.1 10^3/ul (0-0.6); ABS Lymphocytes 0.9 10^3/ul (1.0-4.8); ABS Monocytes 1.3 10^3/ul (0-0.8); Eosinophil % 0.4 %; Hematocrit 38 % (42-52); Hemoglobin 12.6 g/dL (14.0-18.0); Lymphocyte % 6.4 %; Mean Corpuscular HGB Conc 34 g/dL (31-36); Mean Corpuscular Hemoglobin 30 pg (27-31); Mean Corpuscular Volume 90 fL (80-94); Mean Platelet Volume 7.6 fL (7.4-10.4); Platelet Count 421 10^3/uL (150-450); Red Blood Count 4.18 10^6 /uL (4.18-5.48); Red Cell Distribution Width 14 % (10-15); White Blood Count 14.2 10^3/uL (3.5-10.8)
[2019-06-20 15:05] LABS: Albumin 3.8 g/dL (3.2-5.2); Albumin/Globulin Ratio 1.2 (1-3); BUN/Creatinine Ratio 17.1 (8-20); C Reactive Protein 296.92 mg/L (<8.01); Calcium 10.2 mg/dL (8.6-10.3); Globulin 3.1 g/dL (2-4); Potassium 4.3 mmol/L (3.5-5.0); Total Protein 6.9 g/dL (6.4-8.9)
[2019-06-20] MEDS ORDERED: NS 0.9% 1000 ml BAG 1,000 ML IV ONE (16:10)
[2019-06-20] MEDS ORDERED: NS 0.9% 1000 ml BAG 1,000 ML IV SCH (17:00)
[2019-06-20] MEDS ORDERED: Vancomycin per Pharmacy 1 EA NOTE FOLLOW UP SCH (17:00)
[2019-06-20] MEDS ORDERED: Vancomycin 1,500 MG in NS 0.9% 250 ml 250 ML IVPB ONE (17:15)
[2019-06-20] MEDS ORDERED: Dextrose 50% Syringe 50 ml 25 GM/50 ML SYRINGE IV PUSH PRN (17:16)
[2019-06-20] MEDS ORDERED: NS 0.9% IV ONE (17:45)
[2019-06-20] MEDS ORDERED: cefTRIAXone ADVAN VIAL 1 GM in NS 0.9% 50 ML 50 ML IVPB SCH (18:00)
[2019-06-20] MEDS ORDERED: metroNIDAZOLE IV 500 MG/100ML 500 MG/100 ML BAG IVPB SCH (22:00)
[2019-06-20] MEDS: Heparin 5000 UNITS/ML 1 mL VIAL SUBCUT SCH (22:59)
[2019-06-21] MEDS: metroNIDAZOLE IV 500 MG/100ML 500 MG/100 ML BAG IVPB SCH ×3 (01:07→17:25)
[2019-06-21 01:30] LABS: Urine Appearance Cloudy; Urine Bilirubin Negative (Negative); Urine Blood 2+ (Negative); Urine Color Straw; Urine Glucose Negative (Negative); Urine Ketones Negative (Negative); Urine Nitrite Negative (Negative); Urine Protein Negative (Negative); Urine Specific Gravity 1.004 (1.010-1.030); Urine Urobilinogen Negative (Negative)
[2019-06-21 01:36] LABS: Urine Bacteria 1+ (Absent); Urine Red Blood Cell Absent (Absent); Urine White Blood Cell Trace(0-5/hpf) (Absent)
[2019-06-21] MEDS: Heparin 5000 UNITS/ML 1 mL VIAL SUBCUT SCH ×3 (05:44→22:59)
[2019-06-21 06:01] LABS: ABS Eosinophils 0.2 10^3/ul (0-0.6); ABS Lymphocytes 1.1 10^3/ul (1.0-4.8); ABS Monocytes 0.8 10^3/ul (0-0.8); Eosinophil % 2.4 %; Hematocrit 31 % (42-52); Hemoglobin 10.6 g/dL (14.0-18.0); Lymphocyte % 13.7 %; Mean Corpuscular HGB Conc 34 g/dL (31-36); Mean Corpuscular Hemoglobin 30 pg (27-31); Mean Corpuscular Volume 90 fL (80-94); Mean Platelet Volume 7.3 fL (7.4-10.4); Nucleated Red Blood Cells % 0.1; Platelet Count 373 10^3/uL (150-450); Red Blood Count 3.51 10^6 /uL (4.18-5.48); Red Cell Distribution Width 13 % (10-15); White Blood Count 8.2 10^3/uL (3.5-10.8)
[2019-06-21 06:06] LABS: INR 1.29 (0.82-1.09)
[2019-06-21 06:15] LABS: BUN/Creatinine Ratio 17.6 (8-20); Calcium 8.8 mg/dL (8.6-10.3); EGFR African American 100.3 (>60); EGFR Non-African American 82.9 (>60); Potassium 3.4 mmol/L (3.5-5.0)
[2019-06-21] MEDS ORDERED: Potassium Chlor 20 meq TAB.ER PO ONE (08:15)
[2019-06-21] MEDS: Aspirin EC 81 mg TAB.EC (enteric coated) PO SCH (09:06)
[2019-06-21] MEDS ORDERED: VANCOMYCIN 1250 MG IVPB SCH (10:00)
[2019-06-21] MEDS ORDERED: Vancomycin 1,000 MG in NS 0.9% 250 ml 250 ML IVPB SCH (22:00)
[2019-06-21] MEDS: VANCOMYCIN 1250 MG IVPB SCH (23:00)
[2019-06-22] MEDS: metroNIDAZOLE IV 500 MG/100ML 500 MG/100 ML BAG IVPB SCH ×3 (01:36→16:45)
[2019-06-22] MEDS: Heparin 5000 UNITS/ML 1 mL VIAL SUBCUT SCH ×3 (06:11→21:51)
[2019-06-22] MEDS: Aspirin EC 81 mg TAB.EC (enteric coated) PO SCH (08:50)
[2019-06-22] MEDS ORDERED: Vancomycin Trough Check NOTE FOLLOW UP ONE ×2 (09:30)
[2019-06-22] MEDS: VANCOMYCIN 1250 MG IVPB SCH ×2 (10:26→21:50)
[2019-06-23] MEDS: metroNIDAZOLE IV 500 MG/100ML 500 MG/100 ML BAG IVPB SCH ×3 (01:23→16:37)
[2019-06-23] MEDS: Heparin 5000 UNITS/ML 1 mL VIAL SUBCUT SCH ×3 (05:45→22:22)
[2019-06-23] MEDS: Aspirin EC 81 mg TAB.EC (enteric coated) PO SCH (08:55)
[2019-06-23] MEDS: VANCOMYCIN 1250 MG IVPB SCH ×2 (10:33→22:25)
[2019-06-23 12:04] LABS: ABS Basophils 0.1 10^3/ul (0-0.2); ABS Eosinophils 0.1 10^3/ul (0-0.6); ABS Monocytes 0.7 10^3/ul (0-0.8); Eosinophil % 1.7 %; Hematocrit 36 % (42-52); Hemoglobin 11.7 g/dL (14.0-18.0); Lymphocyte % 12.5 %; Mean Corpuscular HGB Conc 33 g/dL (31-36); Mean Corpuscular Hemoglobin 30 pg (27-31); Mean Corpuscular Volume 91 fL (80-94); Mean Platelet Volume 7.1 fL (7.4-10.4); Platelet Count 395 10^3/uL (150-450); Red Cell Distribution Width 14 % (10-15); White Blood Count 7.8 10^3/uL (3.5-10.8)
[2019-06-24] MEDS: metroNIDAZOLE IV 500 MG/100ML 500 MG/100 ML BAG IVPB SCH ×2 (01:16→09:22)
[2019-06-24 06:09] LABS: ABS Basophils 0.1 10^3/ul (0-0.2); ABS Eosinophils 0.2 10^3/ul (0-0.6); ABS Lymphocytes 1.4 10^3/ul (1.0-4.8); ABS Monocytes 0.6 10^3/ul (0-0.8); Eosinophil % 2.2 %; Hematocrit 33 % (42-52); Hemoglobin 11.4 g/dL (14.0-18.0); Mean Corpuscular HGB Conc 34 g/dL (31-36); Mean Corpuscular Hemoglobin 30 pg (27-31); Mean Corpuscular Volume 89 fL (80-94); Mean Platelet Volume 7.3 fL (7.4-10.4); Platelet Count 436 10^3/uL (150-450); Red Blood Count 3.76 10^6 /uL (4.18-5.48); Red Cell Distribution Width 14 % (10-15); White Blood Count 7.7 10^3/uL (3.5-10.8)
[2019-06-24 06:25] LABS: BUN/Creatinine Ratio 16.1 (8-20); C Reactive Protein 74.79 mg/L (<8.01); Calcium 8.9 mg/dL (8.6-10.3); EGFR African American 105.6 (>60); EGFR Non-African American 87.3 (>60)
[2019-06-24] MEDS: Heparin 5000 UNITS/ML 1 mL VIAL SUBCUT SCH ×3 (06:38→21:22)
[2019-06-24] MEDS: Aspirin EC 81 mg TAB.EC (enteric coated) PO SCH (09:22)
[2019-06-24] MEDS: VANCOMYCIN 1250 MG IVPB SCH ×2 (10:48→22:25)
[2019-06-25] MEDS: NS 0.9% 1000 ml BAG 1,000 ML IV SCH ×2 (05:55→16:26)
[2019-06-25] MEDS: Heparin 5000 UNITS/ML 1 mL VIAL SUBCUT SCH ×2 (05:58→14:53)
[2019-06-25] MEDS ORDERED: Famotidine IV 10 MG/ML 2 ml VIAL (20 mg) IV ONE (06:00)
[2019-06-25] MEDS ORDERED: Dexamethasone IV 4 MG/ML VIAL 1 ml VIAL IV SLOW PU ONE (06:00)
[2019-06-25] MEDS: Aspirin EC 81 mg TAB.EC (enteric coated) PO SCH (07:42)
[2019-06-25] MEDS: VANCOMYCIN 1250 MG IVPB SCH ×2 (10:20→21:50)
[2019-06-25] MEDS ORDERED: Midazolam 2 mg/2 ml VIAL 1 mg/ml 2 ml VIAL (2 mg) ONE (11:06)
[2019-06-25] MEDS ORDERED: fentaNYL 100 mcg/2 ml 50 MCG/ML VIAL ONE ×3 (11:06→13:29)
[2019-06-25] MEDS ORDERED: Rocuronium 50 mg VIAL 10 mg/ml 5 ml VIAL (50 mg) ONE (11:08)
[2019-06-25] MEDS ORDERED: Bupivacaine 0.5% SDV PF 30ML VIAL ONE (11:34)
[2019-06-25] MEDS ORDERED: fentaNYL 100 mcg/2 ml 50 MCG/ML VIAL IV PRN (13:32)
[2019-06-25] MEDS ORDERED: DiMENhydriNATE IV 50 mg/ml 1 ml VIAL IV PUSH PRN (13:32)
[2019-06-25] MEDS ORDERED: Ondansetron 4 mg VIAL 2 MG/ML 2 ml VIAL IV PRN (13:32)
[2019-06-25] MEDS ORDERED: HYDROmorphone 1 MG/1 ML SYRINGE IV PRN (13:32)
[2019-06-25] MEDS ORDERED: Naloxone 0.4 mg VIAL 0.4 mg/ml 1 ml VIAL IV PRN (13:32)
[2019-06-25] MEDS ORDERED: HYDROmorphone 1 MG/1 ML SYRINGE ONE ×3 (13:47→14:05)
[2019-06-26] MEDS: NS 0.9% 1000 ml BAG 1,000 ML IV SCH (02:55)
[2019-06-26] MEDS: Heparin 5000 UNITS/ML 1 mL VIAL SUBCUT SCH ×3 (05:21→21:25)
[2019-06-26] MEDS: Aspirin EC 81 mg TAB.EC (enteric coated) PO SCH (09:10)
[2019-06-26] MEDS: VANCOMYCIN 1250 MG IVPB SCH (11:32)
[2019-06-27] MEDS: Heparin 5000 UNITS/ML 1 mL VIAL SUBCUT SCH (05:46)
[2019-06-27] MEDS ORDERED: Vancomycin Random Level NOTE FOLLOW UP ONE (06:00)
[2019-06-27 06:52] LABS: EGFR African American 103.9 (>60); EGFR Non-African American 85.9 (>60)
[2019-06-27 07:32] LABS: Vancomycin Random 15.9 mcg/mL
[2019-06-27] MEDS: Aspirin EC 81 mg TAB.EC (enteric coated) PO SCH (08:50)
[2019-06-27] MEDS ORDERED: Vancomycin 1,000 MG in NS 0.9% 250 ml 250 ML IV SCH (09:00)
[2019-06-27 12:00] VITALS: BP 120/49
[2019-06-29] MEDS ORDERED: Vancomycin Trough Check NOTE FOLLOW UP ONE (08:30)
== END 2019-06-27 12:10 | DRG 854 ==
LOC: ED 13:42 → SSU 16:59
PROVIDERS: ADMIT Internal Medicine; ATTEND Internal Medicine

== ENCOUNTER 2021-02-04 11:07 | Inpatient (IN) ==
[2021-02-04] MEDS ORDERED: Cefepime 2 GM in Dextrose 2 GM/50 ML BAG IV ONE (11:32)
[2021-02-04] MEDS ORDERED: metroNIDAZOLE IV 500 MG/100ML 500 MG/100 ML BAG IVPB ONE (11:32)
[2021-02-04 12:51] LABS: Hematocrit 29 % (42-52); Hemoglobin 9.7 g/dL (14.0-18.0); Mean Corpuscular HGB Conc 34 g/dL (31-36); Mean Corpuscular Hemoglobin 32 pg (27-31); Mean Corpuscular Volume 94 fL (80-94); Mean Platelet Volume 7.7 fL (7.4-10.4); Platelet Count 407 10^3/uL (150-450); Red Blood Count 3.05 10^6 /uL (4.18-5.48); Red Cell Distribution Width 14 % (10-15); White Blood Count 17.1 10^3/uL (3.5-10.8)
[2021-02-04 13:00] LABS: Activated Partial Thrombo Time 29.3 seconds (26.0-38.0); INR 1.29 (0.86-1.15)
[2021-02-04] MEDS ORDERED: Vancomycin 1,250 MG in NS 0.9% 250 ml 250 ML IVPB ONE (13:00)
[2021-02-04 13:11] LABS: ABS Eosinophils 0.2 10^3/ul (0-0.6); ABS Lymphocytes 1.1 10^3/ul (1.0-4.8); ABS Monocytes 1.3 10^3/ul (0-0.8); ABS Neutrophils 14.5 10^3/ul (1.5-7.7); Lymphocyte % 6.3 %; RBC Morphology Normal (Normal)
[2021-02-04 13:12] LABS: Troponin I 0.01 ng/mL (<0.03)
[2021-02-04 13:18] LABS: ALT 223 U/L (7-52); Albumin 3.5 g/dL (3.2-5.2); Alkaline Phosphatase 83 U/L (35-149); Blood Urea Nitrogen 39 mg/dL (6-24); C Reactive Protein 230.86 mg/L (<8.01); CO2 Carbon Dioxide 21 mmol/L (22-32); Calcium 9.6 mg/dL (8.6-10.3); Chloride 96 mmol/L (101-111); Globulin 3.4 g/dL (2-4); Glucose 240 mg/dL (70-100); Sodium 128 mmol/L (135-145); Total Protein 6.9 g/dL (6.4-8.9); eGFR CKD-EPI 34.2 (>60)
[2021-02-04] MEDS: Lactated Ringers 1000 ml BAG IV.FLUID IV ONE ×2 (13:20→18:53)
[2021-02-04 13:24] LABS: Anion Gap 11 mmol/L (2-11)
[2021-02-04] MEDS ORDERED: Iodixanol (CONTRAST) 320 MG/ML 100 ML SDV IV ONE (13:39)
[2021-02-04 16:00] LABS: Urine Appearance Cloudy; Urine Bilirubin Negative (Negative); Urine Blood 2+ (Negative); Urine Color Yellow; Urine Glucose Negative (Negative); Urine Ketones Negative (Negative); Urine Nitrite Negative (Negative); Urine Protein 2+(100 mg/dL) (Negative); Urine Specific Gravity 1.028 (1.002-1.030); Urine Urobilinogen Negative (Negative)
[2021-02-04 16:07] LABS: Urine Bacteria Absent (Absent); Urine Granular Casts Present (Absent); Urine Red Blood Cell 2+(6-10/hpf) (Absent); Urine White Blood Cell 3+(>20/hpf) (Absent)
[2021-02-04] MEDS ORDERED: Ondansetron 4 mg VIAL 2 MG/ML 2 ml VIAL IV PRN (16:35)
[2021-02-04] MEDS ORDERED: Magnesium Hydroxide LIQ 30 ML UDC PO PRN (16:36)
[2021-02-04] MEDS ORDERED: Dextrose 50% Syringe 50 ml 25 GM/50 ML SYRINGE IV PUSH PRN (16:39)
[2021-02-04] MEDS ORDERED: Vancomycin per Pharmacy 1 EA NOTE FOLLOW UP SCH (17:00)
[2021-02-05] MEDS: Enoxaparin 40 MG/0.4 ML SYR SUBCUT SCH ×2 (00:17→21:39)
[2021-02-05] MEDS: Cefepime 2 GM in Dextrose 2 GM/50 ML BAG IV SCH ×2 (00:18→13:27)
[2021-02-05 06:53] LABS: Hematocrit 27 % (42-52); Hemoglobin 9.3 g/dL (14.0-18.0); Mean Corpuscular HGB Conc 34 g/dL (31-36); Mean Corpuscular Hemoglobin 32 pg (27-31); Mean Corpuscular Volume 94 fL (80-94); Mean Platelet Volume 7.6 fL (7.4-10.4); Platelet Count 343 10^3/uL (150-450); Red Blood Count 2.92 10^6 /uL (4.18-5.48); Red Cell Distribution Width 14 % (10-15); White Blood Count 11.5 10^3/uL (3.5-10.8)
[2021-02-05 07:05] LABS: ABS Eosinophils 0.2 10^3/ul (0-0.6); ABS Lymphocytes 1.2 10^3/ul (1.0-4.8); ABS Monocytes 0.9 10^3/ul (0-0.8); ABS Neutrophils 9.2 10^3/ul (1.5-7.7); Eosinophil % 1.9 %; Lymphocyte % 10.2 %
[2021-02-05 07:09] LABS: Potassium 3.5 mmol/L (3.5-5.0); eGFR CKD-EPI 38.4 (>60)
[2021-02-05] MEDS: Vancomycin 1000 MG in NS 0.9% 250 ML IVPB SCH (08:54)
[2021-02-05] MEDS: Aspirin EC 81 mg TAB.EC (enteric coated) PO SCH (08:55)
[2021-02-06] MEDS: Cefepime 2 GM in Dextrose 2 GM/50 ML BAG IV SCH (01:57)
[2021-02-06 05:02] LABS: eGFR CKD-EPI 38.4 (>60)
[2021-02-06 05:08] LABS: Vancomycin Trough 11.9 mcg/mL
[2021-02-06] MEDS ORDERED: Vancomycin Trough Check NOTE FOLLOW UP ONE (07:30)
[2021-02-06 07:49] LABS: C Reactive Protein 117.56 mg/L (<8.01)
[2021-02-06] MEDS: Vancomycin 1000 MG in NS 0.9% 250 ML IVPB SCH (07:49)
[2021-02-06] MEDS: Aspirin EC 81 mg TAB.EC (enteric coated) PO SCH (08:52)
[2021-02-06 12:03] VITALS: BP 118/57
[2021-02-07] MEDS ORDERED: Vancomycin 1,250 MG in NS 0.9% 250 ml 250 ML IVPB SCH (06:00)
[2021-02-10] MEDS ORDERED: Vancomycin Trough Check NOTE FOLLOW UP ONE (06:00)
== END 2021-02-06 12:30 | disposition home or self-care (01) | DRG 872 ==
LOC: ED 11:07 → EDHOLD 16:38 → SSU 19:02
PROVIDERS: ADMIT Student in an Organized Health Care Education/Training Program; ATTEND Student in an Organized Health Care Education/Training Program